=== PATIENT | female | born 1970 | race Caucasian/White ===

== ENCOUNTER 2022-08-27 05:04 | Emergency (ER) | payer OTHER, SELFPAY ==
[2022-08-27] VITALS (7 sets, daily range): BP systolic 190–205; BP diastolic 95–118; PULSE 68–89; RESP 16–20; TEMP 36.6–36.8; O2SAT 98–99; BMI 35.4
--- NOTE | 2022-08-27 05:39 | PC.NURSE ---
Pt aox4 at the bedside. Breaths are even regular and unlabored. BP 190/95 with HR 75. Abd soft and non tender. Reports left side tooth pain, 10/10, that radiates to the left ear and left eye. Pt reports feeling nauseas due to the pain. Tylenol and Motrin not helping with pain relief anymore. Pending phys eval.
--- NOTE | 2022-08-27 07:08 | ED.DENTAL ---
HPI - Dental/Oral General Chief complaint: Dental/Oral Stated complaint: Dental pain Time Seen by Provider: 08/27/22 07:06 Source: patient Mode of arrival: ambulatory Limitations: no limitations History of Present Illness HPI Narrative: Patient with chronic dental caries the skin from fluid unable to find a dentist complaining of shooting pain in left premolar both upper and lower. No fever no gum swelling no erythema no fever or chills patient does have history of hypertension takes lisinopril 40 mg and atenolol which she took last night usually blood pressure is controlled no headache Related Data Previous Rx's Medication Instructions Recorded amoxicillin 875 mg-potassium 1 tab PO BID #20 tabs 08/27/22 clavulanate 125 mg tablet oxycodone 5 mg tablet 5 mg PO Q6H PRN pain #20 tabs 08/27/22 Allergies Allergy/AdvReac Type Severity Reaction Status Date / Time No Known Allergies Allergy Verified 08/27/22 05:11 Review of Systems Review of Systems: Yes all other systems are reviewed and are negative PMFSH Social History Social History Advance Directives: No Advance Directives Information Provided: Yes Physical Exam Vital Signs: Vital Signs: Last Vital Signs Temp 98.3 F 08/27/22 05:37 Pulse 70 08/27/22 07:29 Resp 17 08/27/22 07:16 BP 190/96 H 08/27/22 07:29 Pulse Ox 98 08/27/22 07:29 O2 Del Method Room Air 08/27/22 07:29 BMI result Body Mass Index 35.4 Const: General: healthy appearing, well developed and acute distress moderate HEENT: Teeth image: 1. Multiple loss of T8 with deep cavity and premolar no gum swelling 2. Cavity in pre morar with local tenderness no gum swelling Throat: Yes posterior oropharynx normal Resp: Effort & Inspection: normal respiratory effort Auscultation: clear to auscultation bilaterally Cardio: Palpation: normal PMI Rate: regular rate Rhythm: regular rhythm Medications Administered Discontinued Medications Generic Name Dose Route Start Last Admin Trade Name Freq PRN Reason Stop Dose Admin Amoxicillin/Clavulanate Potassium 875 mg 08/27/22 07:26 08/27/22 07:33 Amoxicillin/Potassium Clav 875 Mg Tablet PO 08/27/22 07:27 875 mg ONCE ONE Administration Oxycodone HCl 10 mg 08/27/22 07:26 08/27/22 07:33 Oxycodone Hcl Immed Release 5 Mg Tablet PO 08/27/22 07:27 10 mg ONCE ONE Administration Discharge Plan Discharge Clinical Impression: Dental caries Patient Disposition: Home, Self-Care Instructions: Toothache (ED) Additional Instructions: Take pain medication and antibiotic as prescribed and follow with dentist You had high blood pressure likely from the pain continue taking blood pressure medication and if it is elevated higher than 135/85 follow-up with PCP Prescriptions: New amoxicillin-pot clavulanate 875-125 mg tablet 1 tab PO BID Qty: 20 0RF oxycodone 5 mg tablet 5 mg PO Q6H PRN (Reason: pain) Qty: 20 0RF Rx Instructions: Partial Fill upon patient request.
[2022-08-27] MEDS: oxyCODONE HCl Immed Release 5 MG TABLET 10 MG PO (07:33)
[2022-08-27] MEDS: Amoxicillin/Potassium Clav 875 MG TABLET PO (07:33)
== END 2022-08-27 08:18 | disposition home or self-care (01) ==
PROVIDERS: Emergency Provider Internal Medicine
DX: K02.9 Dental caries, unspecified (principal)
CPT/HCPCS: 99283; 99284

== ENCOUNTER 2022-10-31 15:20 | Emergency (ER) | payer OTHER, SELFPAY ==
[2022-10-31 15:28] VITALS: BP 211/106; PULSE 18; RESP 100; TEMP 36.7; O2SAT 98; BMI 34.7
--- NOTE | 2022-10-31 15:31 | ED_ITS ---
HPI - General Adult General Chief complaint: General Medical Stated complaint: High blood pressure Time Seen by Provider: 10/31/22 19:27 Source: patient Mode of arrival: ambulatory Limitations: no limitations History of Present Illness HPI narrative: Patient's will chronic anxiety on Xanax 3 times a day for several years patient got her medicines filled on 10/05 now she cannot find her medication for last few days likely she took extra pills or lost checked her blood pressure was 250/110 feels very panicky was given 1 mg of Xanax in the triage area and patient feeling much better on arrival blood pressure has improved to 146/59. Patient will be getting her medication next week asking for medication till that time Related Data Previous Rx's Medication Instructions Recorded amoxicillin 875 mg-potassium 1 tab PO BID #20 tabs 08/27/22 clavulanate 125 mg tablet oxycodone 5 mg tablet 5 mg PO Q6H PRN pain #20 tabs 08/27/22 alprazolam 1 mg tablet (Xanax) 1 mg PO TID PRN anxiety #7 tabs 10/31/22 fluoxetine 20 mg capsule (Prozac) 20 mg PO DAILY #30 caps 10/31/22 Allergies Allergy/AdvReac Type Severity Reaction Status Date / Time No Known Allergies Allergy Verified 08/27/22 05:11 Review of Systems Review of Systems: Yes all other systems are reviewed and are negative [facility] Social History Social History Alcohol intake: never Advance Directives: No Advance Directives Information Provided: Yes Physical Exam ED Vital Signs: Vital Signs - 24 hr 10/31/22 15:28 10/31/22 18:43 10/31/22 19:08 Temperature 98.1 F 97.7 F Pulse Rate 18 L 80 Respiratory Rate 100 H 19 Blood Pressure 211/106 H 158/74 H 147/69 H Pulse Oximetry 98 98 Oxygen Delivery Method Room Air Room Air 10/31/22 20:08 Temperature Pulse Rate 72 Respiratory Rate Blood Pressure 146/59 H Pulse Oximetry Oxygen Delivery Method BMI result Body Mass Index 34.7 Appearance: Alert. Oriented X3. No acute distress anxious. Eyes: PERRLA, No Nystagmus ENT: Pharynx normal. Oral Mucosa moist Neck: Normal inspection. Neck supple. CVS: Normal heart rate and rhythm. Pulses normal. Respiratory: No respiratory distress. Equal air entry bilateral, no wheezing/rales/rhonchi Abdomen: Soft and nontender. Bowel sounds are present, no mass palpable, no CVA tenderness Skin: Skin warm and dry. Normal skin color. Normal skin turgor. Extremities: No lower extremity edema. No calf tenderness Neuro: Oriented X 3. No motor deficit. No sensory deficit.No cerebellar signs , cranial nerves II-XII intact Course Course Course Narrative: RME: 52 yold female with pmh of anxiety and HTN presents to the ED for panic attacks and high blood pressure. patient has been without xanax 1mg tid for 3 days due to losing the her xanax bottle. no neuro decitis. patient stating having withradawl before from not taking ativan in the past. NO neuro deficit. Charge nurse made aware of patient's case. labs and EKG ordered. symptoms most liekly from anxiety and withdrawal from not taking xanax ( benzos) for the past 3 days. Medications Administered Discontinued Medications Generic Name Dose Route Start Last Admin Trade Name Katya PRN Reason Stop Dose Admin Alprazolam 1 mg 10/31/22 15:31 10/31/22 15:34 Alprazolam 0.5 Mg Tablet PO 10/31/22 15:32 1 mg ONCE ONE Administration Medical Decision Making Medical Decision Making [facility] Narrative: Patient with panic attacks not find a medication likely she took extra pills initially had high blood pressure with panic attack now feeling much better will discharge patient home on Prozac and will give few tablets of Xanax until she sees the primary doctor Lab Data [facility] Lab Attestation statement: I reviewed the patient's lab results. 10/31/22 15:57 10/31/22 15:57 Labs: Lab Results 10/31/22 10/31/22 10/31/22 Range/Units 15:57 15:57 15:57 WBC 10.2 (4.8-10.8) X10*3/uL RBC 4.87 (4.20-5.50) X10*6/uL Hgb 13.3 (12.0-16.0) g/dl Hct 41.7 (37.0-47.0) % MCV 85.6 (80.0-98.0) fL MCH 27.3 (27.0-33.0) pg MCHC 31.9 (31.0-35.0) g/dl RDW 13.3 (11.0-16.0) % Plt Count 337 (160-400) X10*3/uL MPV 9.5 (9.4-12.3) fL Immature Gran % (Auto) 0.4 (0.0-0.4) % Neut % (Auto) 82.4 H (45-73) % Lymph % (Auto) 11.8 L (20-40) % Piute % (Auto) 4.8 (2-11) % Eos % (Auto) 0.3 (0-4) % Baso % (Auto) 0.3 (0-2) % Lymph # (Auto) 1.2 (1.2-4.9) X10*3/uL Piute # (Auto) 0.5 (0.1-1.2) X10*3/uL Eos # (Auto) 0.0 (0.0-0.4) X10*3/uL Baso # (Auto) 0.0 (0.0-0.2) X10*3/uL Abs Immat Gran (auto) 0.04 H (0.00-0.03) X10*3/uL Absolute Neuts (auto) 8.4 H (2.0-8.3) x10*3/uL Absolute Nucleated RBC 0.000 (0.0-0.012) X10*3/uL Nucleated RBC % (auto) 0.0 (0.0-0.2) /100WBC PT (10.0-13.1) SEC INR (0.9-1.1) APTT (26.0-36.4) SEC Sodium 139 (135-145) mmol/L Potassium 3.9 (3.3-5.1) mmol/L Chloride 103 (96-108) mmol/L Carbon Dioxide 22 (22-29) mmol/L Anion Gap 18 (12-20) BUN 8 L (9-16) mg/dL Creatinine 0.77 (0.5-1.4) mg/dL Estim Creat Clear Calc 113.6 Estimated GFR > 60 Random Glucose 160 H (60-115) mg/dL Calcium 9.7 (8.4-10.2) mg/dL Total Bilirubin 0.9 (0.0-1.0) mg/dL AST 34 H (5-31) U/L ALT 34 H (0-31) U/L Alkaline Phosphatase 70 (39-117) U/L Troponin I High Sens < 2.7 (<3.5-17.0) ng/L Total Protein 8.3 H (6.5-8.0) g/dL Albumin 4.2 (3.5-5.0) g/dL 10/31/22 Range/Units 15:57 WBC (4.8-10.8) X10*3/uL RBC (4.20-5.50) X10*6/uL Hgb (12.0-16.0) g/dl Hct (37.0-47.0) % MCV (80.0-98.0) fL MCH (27.0-33.0) pg MCHC (31.0-35.0) g/dl RDW (11.0-16.0) % Plt Count (160-400) X10*3/uL MPV (9.4-12.3) fL Immature Gran % (Auto) (0.0-0.4) % Neut % (Auto) (45-73) % Lymph % (Auto) (20-40) % Piute % (Auto) (2-11) % Eos % (Auto) (0-4) % Baso % (Auto) (0-2) % Lymph # (Auto) (1.2-4.9) X10*3/uL Piute # (Auto) (0.1-1.2) X10*3/uL Eos # (Auto) (0.0-0.4) X10*3/uL Baso # (Auto) (0.0-0.2) X10*3/uL Abs Immat Gran (auto) (0.00-0.03) X10*3/uL Absolute Neuts (auto) (2.0-8.3) x10*3/uL Absolute Nucleated RBC (0.0-0.012) X10*3/uL Nucleated RBC % (auto) (0.0-0.2) /100WBC PT 12.8 (10.0-13.1) SEC INR 1.1 (0.9-1.1) APTT 30.0 (26.0-36.4) SEC Sodium (135-145) mmol/L Potassium (3.3-5.1) mmol/L Chloride (96-108) mmol/L Carbon Dioxide (22-29) mmol/L Anion Gap (12-20) BUN (9-16) mg/dL Creatinine (0.5-1.4) mg/dL Estim Creat Clear Calc Estimated GFR Random Glucose (60-115) mg/dL Calcium (8.4-10.2) mg/dL Total Bilirubin (0.0-1.0) mg/dL AST (5-31) U/L ALT (0-31) U/L Alkaline Phosphatase (39-117) U/L Troponin I High Sens (<3.5-17.0) ng/L Total Protein (6.5-8.0) g/dL Albumin (3.5-5.0) g/dL Discharge Plan Discharge Clinical Impression: Panic attack Patient Disposition: Home, Self-Care Instructions: Panic Disorder (ED), Anxiety (ED) Additional Instructions: Continue medication for anxiety You may have to taper it down start taking Prozac daily and see psychiatrist Prescriptions: New fluoxetine [Prozac] 20 mg capsule 20 mg PO DAILY Qty: 30 0RF alprazolam [Xanax] 1 mg tablet 1 mg PO TID PRN (Reason: anxiety) Qty: 7 0RF No Action amoxicillin-pot clavulanate 875-125 mg tablet 1 tab PO BID Qty: 20 0RF oxycodone 5 mg tablet 5 mg PO Q6H PRN (Reason: pain) Qty: 20 0RF Rx Instructions: Partial Fill upon patient request. Referrals: Marcin Raymundo MD [Physician] - 2 weeks Interventions: ED Discharge Assessment Last Done: 10/31/22 20:21 Discharge Date/Time: 10/31/22 20:22
--- NOTE | 2022-10-31 15:32 | ECG_ITS ---
Test Reason : blood pressure Blood Pressure : / mmHG Vent. Rate : 069 BPM Atrial Rate : 069 BPM P-R Int : 128 ms QRS Dur : 102 ms QT Int : 422 ms P-R-T Axes : 045 -11 072 degrees QTc Int : 452 ms Sinus rhythm with Premature atrial complexes Left ventricular hypertrophy with repolarization abnormality ( R in aVL , Andi product ) Abnormal ECG No previous ECGs available Referred By: Allen Motta Electronically Signed By:Ronni Jackson
[2022-10-31] MEDS: ALPRAZolam 0.5 MG TABLET 1 MG PO (15:34)
[2022-10-31 16:08] LABS: MANUAL DIFF FLAG NO
[2022-10-31 16:16] LABS: Basophils Percent Auto 0.3 % (0-2); Eosinophils Percent Auto 0.3 % (0-4); Hematocrit 41.7 % (37.0-47.0); Hemoglobin 13.3 g/dl (12.0-16.0); Imm Gran Abs Auto 0.04 X10*3/uL (0.00-0.03); Imm Gran Pct Auto 0.4 % (0.0-0.4); Lymphocytes Absolute Auto 1.2 X10*3/uL (1.2-4.9); Lymphocytes Percent Auto 11.8 % (20-40); Mean Corpuscular HGB Conc 31.9 g/dl (31.0-35.0); Mean Corpuscular Hemoglobin 27.3 pg (27.0-33.0); Mean Corpuscular Volume 85.6 fL (80.0-98.0); Mean Platelet Volume 9.5 fL (9.4-12.3); Monocytes Absolute Auto 0.5 X10*3/uL (0.1-1.2); Monocytes Percent Auto 4.8 % (2-11); Neutrophils Absolute Auto 8.4 x10*3/uL (2.0-8.3); Neutrophils Percent Auto 82.4 % (45-73); Platelet Count 337 X10*3/uL (160-400); Red Blood Count 4.87 X10*6/uL (4.20-5.50); Red Cell Distribution Width 13.3 % (11.0-16.0); White Blood Count 10.2 X10*3/uL (4.8-10.8)
[2022-10-31 16:17] LABS: INTERNATIONAL NORM RATIO 1.1 (0.9-1.1); Prothrombin Time 12.8 SEC (10.0-13.1)
[2022-10-31 16:30] LABS: Alanine Aminotransferase 34 U/L (0-31); Albumin Level 4.2 g/dL (3.5-5.0); Alkaline Phosphatase 70 U/L (39-117); Anion Gap 18 (12-20); Aspartate Amino Transferase 34 U/L (5-31); Bilirubin Total 0.9 mg/dL (0.0-1.0); Blood Urea Nitrogen 8 mg/dL (9-16); Calcium 9.7 mg/dL (8.4-10.2); Carbon Dioxide 22 mmol/L (22-29); Chloride 103 mmol/L (96-108); Creatinine Clr Calc Pharmacy 113.6; Estimated Glomerular Filt Rate > 60; Glucose Random 160 mg/dL (60-115); Potassium 3.9 mmol/L (3.3-5.1); Sodium 139 mmol/L (135-145); Total Protein 8.3 g/dL (6.5-8.0)
[2022-10-31 16:39] LABS: Troponin-I High Sensitivity < 2.7 ng/L (<3.5-17.0)
[2022-10-31 18:43] VITALS: BP 158/74
[2022-10-31 19:08] VITALS: BP 147/69; PULSE 80; RESP 19; TEMP 36.5; O2SAT 98
--- NOTE | 2022-10-31 19:42 | PC.NURSE ---
this rn assumed care of pt @ 1900. pt placed on vehicle monitor technician. vs updated. pt changed into hospital gown awaiting to be seen by ed provider
[2022-10-31 20:08] VITALS: BP 146/59; PULSE 72
--- NOTE | 2022-10-31 20:20 | PC.NURSE ---
pt son at bedside. pt calm and cooperative. vss. pt ambulatory at discharge. pt denies pain. pt provided with discharge packet. pt verbalized understanding of discharge plan
== END 2022-10-31 20:22 | disposition home or self-care (01) ==
PROVIDERS: Physician Assistant; Emergency Provider Internal Medicine
DX: F41.0 Panic disorder [episodic paroxysmal anxiety] (principal); R94.31 Abnormal electrocardiogram [ECG] [EKG]; Z79.899 Other long term (current) drug therapy
CPT/HCPCS: 36415; 80053; 84484; 85025; 85610; 85730; 93005; 99283; 99284

== ENCOUNTER 2022-11-01 06:37 | Emergency (ER) | payer OTHER, SELFPAY ==
[2022-11-01 06:42] VITALS: BP 176/82; PULSE 83; RESP 16; TEMP 36.8; O2SAT 98; BMI 34.7
[2022-11-01 07:10] VITALS: BP 163/92; PULSE 65; RESP 16; TEMP 36.6; O2SAT 97
[2022-11-01] MEDS: ALPRAZolam 0.5 MG TABLET 1 MG PO (07:52)
--- NOTE | 2023-03-07 18:47 | ED_ITS ---
HPI - General Adult General Chief complaint: General Medical Stated complaint: HBP Time Seen by Provider: 11/01/22 07:04 Source: patient Limitations: no limitations History of Present Illness HPI narrative: PAtient presents with anxiety and HTN Seen yesterday and discharged. Unable to fill Rx by PCP Symptoms severe 7/10 Worsened by not having her meds Related Data Previous Rx's Medication Instructions Recorded amoxicillin 875 mg-potassium 1 tab PO BID #20 tabs 08/27/22 clavulanate 125 mg tablet oxycodone 5 mg tablet 5 mg PO Q6H PRN pain #20 tabs 08/27/22 alprazolam 1 mg tablet (Xanax) 1 mg PO TID PRN anxiety #7 tabs 10/31/22 fluoxetine 20 mg capsule (Prozac) 20 mg PO DAILY #30 caps 10/31/22 ondansetron 4 mg disintegrating 4 mg PO Q8H 3 days #9 tabs 12/23/22 tablet Allergies Allergy/AdvReac Type Severity Reaction Status Date / Time No Known Allergies Allergy Verified 08/27/22 05:11 [facility] Social History Social History Alcohol intake: current Alcohol intake frequency: holidays/special occasions only Smoked in Last 30 Days: No Use of substances other than those prescribed or required for medical reasons: No Advance Directives: No Advance Directives Information Provided: No Patient : No Physical Exam ED Vital Signs: BMI result Body Mass Index 34.7 GEN: Well developed, no acute distress, alert, oriented HEENT: Normocephalic, atraumatic, normal external ears, nose appears normal Eyes: Normal to appearance Neck: Supple, no lymphadenopathy Respiratory: Talks in complete sentences, no respiratory distress Extremities: No clubbing cyanosis or edema Neurologic: No focal neurologic deficits, cranial nerves 2-12 intact, gait normal Skin: No rash Course Course Course Narrative: I reviewed her laboratory results. There is some mild are abnormalities including elevated blood sugar. This can be seen with acute stress reactions such as stress and anxiety. Additionally this can also be seen in diabetes and prediabetes. I am recommending routine follow-up in about 1 month for repeat blood testing. At that time, your provider could order and hemoglobin A1c. Additionally, your liver function tests/enzymes are very slightly elevated. Again this can be rechecked by routine laboratory analysis in approximately 1 month. Discussed above with patient Medications Administered Discontinued Medications Generic Name Dose Route Start Last Admin Trade Name Freq PRN Reason Stop Dose Admin Alprazolam 1 mg 11/01/22 07:44 11/01/22 07:52 Alprazolam 0.5 Mg Tablet PO 11/01/22 07:45 1 mg ONCE ONE Administration Medical Decision Making Differential Diagnosis Differential Diagnoses: The differential diagnosis associated with the presentation includes (anxiety, hypokalemia, renal dysfunction, medication non compliance) Admission/Observation Consideration of admission/observation: Escalation of care including admission/observation considered Lab Data MDM Lab Attestation statement: I reviewed the patient's lab results. External Record Review External record reviewed: Inpatient record, Office record, Outpatient record and Prior outpatient labs Prescription Management I considered prescription management with: Other (anxiety meds) Chronic Conditions Patient?s care impacted by: Hypertension Discharge Plan Discharge Clinical Impression: Essential hypertension, Elevated blood sugar, Elevated LFTs Patient Disposition: Home, Self-Care Instructions: Chronic Hypertension (ED), DASH Eating Plan (ED), Nondiabetic Hyperglycemia (ED) Additional Instructions: I reviewed her laboratory results. There is some mild are abnormalities including elevated blood sugar. This can be seen with acute stress reactions such as stress and anxiety. Additionally this can also be seen in diabetes and prediabetes. I am recommending routine follow-up in about 1 month for repeat blood testing. At that time, your provider could order and hemoglobin A1c. Additionally, your liver function tests/enzymes are very slightly elevated. Again this can be rechecked by routine laboratory analysis in approximately 1 month. Prescriptions: No Action amoxicillin-pot clavulanate 875-125 mg tablet 1 tab PO BID Qty: 20 0RF oxycodone 5 mg tablet 5 mg PO Q6H PRN (Reason: pain) Qty: 20 0RF Rx Instructions: Partial Fill upon patient request. fluoxetine [Prozac] 20 mg capsule 20 mg PO DAILY Qty: 30 0RF alprazolam [Xanax] 1 mg tablet 1 mg PO TID PRN (Reason: anxiety) Qty: 7 0RF ondansetron 4 mg tablet,disintegrating 4 mg PO Q8H 3 Days Qty: 9 0RF Referrals: [facility] [place] [facility] [Provider Group] Interventions: ED Discharge Assessment Last Done: 11/01/22 08:59 Discharge Date/Time: 11/01/22 09:00
== END 2022-11-01 09:00 | disposition home or self-care (01) ==
PROVIDERS: Emergency Provider Emergency Medicine
DX: I10 Essential (primary) hypertension (principal); R73.9 Hyperglycemia, unspecified; R79.89 Other specified abnormal findings of blood chemistry
CPT/HCPCS: 99283

== ENCOUNTER 2022-12-23 05:33 | Emergency (ER) | payer OTHER, SELFPAY ==
--- NOTE | ~2022-12-23 | CT_ITS ---
EXAMINATION: CT ABDOMEN AND PELVIS WITH CONTRAST CLINICAL INFORMATION: Abdominal pain, possible obstruction COMPARISON: None available. TECHNIQUE: Multidetector volumetric images were obtained from the superior aspect of the liver through the pubic symphysis following administration 85 mL of Omnipaque 350 intravenous contrast. Sagittal and coronal reformatted images were obtained on the technologist's workstation. Oral contrast: No This CT examination was performed using dose optimization techniques as appropriate, variously including the following: *Automated exposure control *Adjustment of mA and/or kV according to patient size (this includes techniques or standardized protocols for targeted exams where dose is matched to indication/reason for exam; i.e. extremities or head) *Use of iterative reconstruction technique DLP: 1025.51 mGy-cm FINDINGS: LUNG BASES: The visualized lung bases are unremarkable. LIVER, GALLBLADDER, AND BILIARY TREE: The liver is normal in size, shape, and attenuation. No focal hepatic lesion or biliary ductal dilatation is present. The gallbladder is surgically absent. PANCREAS: Unremarkable. SPLEEN: Unremarkable. ADRENAL GLANDS: Unremarkable. KIDNEYS AND URETERS: There are several small low density left renal lesions, too small to characterize, but presumably cysts. No specific follow-up is needed. The kidneys are normal in size, shape, and attenuation. No hydronephrosis, hydroureter, or calculi seen. No perinephric stranding. BLADDER: Unremarkable. GASTROINTESTINAL TRACT: There is a sandra mesentery, with a few borderline sized nodes measuring up to 7 mm in short axis. The small and large bowel are unremarkable. The appendix is unremarkable. ABDOMINAL WALL: No significant hernia is appreciated. LYMPH NODES: Normal. VASCULAR: Unremarkable. PELVIC VISCERA: There is a dominant 4.3 cm follicle in the left ovary, with adjacent small amount of fluid in the cul-de-sac and adjacent to the left ovary, presumably physiologic. OSSEOUS STRUCTURES: Unremarkable. CT/CT abdomen pelvis w IV con IMPRESSION: 1. Mild sandra mesentery with associated small nodes, a nonspecific finding but most likely on the basis of mesenteric adenitis. 2. Dominant left adnexal 4.3 cm cyst with adjacent fluid is presumably follow physiologic. No follow-up imaging is recommended. 3. Small low density left renal lesions are presumably cysts, though too small to characterize. No specific imaging follow-up is recommended. Fleischner guidelines were followed.
[2022-12-23 05:57] LABS: Hematocrit 43.3 % (37.0-47.0); Hemoglobin 13.8 g/dl (12.0-16.0); Mean Corpuscular HGB Conc 31.9 g/dl (31.0-35.0); Mean Corpuscular Hemoglobin 27.2 pg (27.0-33.0); Mean Corpuscular Volume 85.2 fL (80.0-98.0); Mean Platelet Volume 8.8 fL (9.4-12.3); Platelet Count 270 X10*3/uL (160-400); Red Blood Count 5.08 X10*6/uL (4.20-5.50); Red Cell Distribution Width 14.1 % (11.0-16.0); White Blood Count 10.3 X10*3/uL (4.8-10.8)
[2022-12-23 05:59] VITALS: BP 146/72; PULSE 66; RESP 18; TEMP 36.2; O2SAT 100; BMI 35.6
[2022-12-23 06:03] VITALS: BP 151/91; PULSE 80; RESP 18; O2SAT 98
[2022-12-23 06:15] LABS: Alanine Aminotransferase 23 U/L (0-31); Alkaline Phosphatase 67 U/L (39-117); Anion Gap 18 (12-20); Aspartate Amino Transferase 21 U/L (5-31); Bilirubin Total 0.8 mg/dL (0.0-1.0); Blood Urea Nitrogen 14 mg/dL (9-16); Calcium 9.8 mg/dL (8.4-10.2); Carbon Dioxide 22 mmol/L (22-29); Chloride 100 mmol/L (96-108); Creatinine Clr Calc Pharmacy 124.9; Estimated Glomerular Filt Rate > 60; Glucose Random 115 mg/dL (60-115); Lipase 17 U/L (8-78); Sodium 136 mmol/L (135-145)
[2022-12-23] MEDS: ondansetron HCL 4 MG/2 ML VIAL IVPUSH (06:26)
[2022-12-23] MEDS: Ketorolac Tromethamine 30 MG/ML VIAL IVPUSH (06:26)
[2022-12-23] MEDS: 0.9 % Sodium Chloride 1,000 ML 999 ML IV (06:26)
[2022-12-23 06:27] LABS: Appearance Urine Clear; Color Urine Yellow; Glucose Urine UA Negative (Negative); Leukocyte Esterase Urine Negative (Negative); Nitrite Urine Negative (Negative); PH 5.5 (5.0-9.0); Specific Gravity - Urine <= 1.005 (1.005-1.025); Urine Blood Negative (Negative); Urine Ketones Negative (Negative); Urine Protein Negative (Neg-Trace)
--- NOTE | 2022-12-23 06:37 | ED_ITS ---
HPI - General Adult General Chief complaint: Abdominal Pain Stated complaint: abd pain x4 days Time Seen by Provider: 12/23/22 06:30 Source: patient Mode of arrival: ambulatory Limitations: no limitations History of Present Illness HPI narrative: Patient is a 52 year old assigned female at with a history of HTN presenting to the emergency department today with abdominal pain. Patient states that over the last 4 days she has had abdominal pain, diarrhea, and nausea but no vomiting. Patient states that her last normal bowel movement was 5 days ago. Patient denies any dizziness, lightheadedness, vomiting, fever, chills, blurry vision, double vision, loss of vision, chest pain, difficulty breathing, shortne ss of breath, back pain, night sweats, pain with urination, increased urinary frequency, increased urinary urgency, blood in her urine or stool, syncope or a near syncopal episode, recent trauma or falls, bowel incontinence, bladder incontinence, bladder retention, or any other complaints at this time. Onset (ago): day(s) (4) Location: abdomen Radiation: non-radiation Severity: mild Severity scale (1-10): 4 Quality: aching and dull Pain Consistency: constant Relieving factors: none Exacerbating factors: none Associated symptoms: nausea/vomiting Treatments prior to arrival: none Related Data Previous Rx's Medication Instructions Recorded amoxicillin 875 mg-potassium 1 tab PO BID #20 tabs 08/27/22 clavulanate 125 mg tablet oxycodone 5 mg tablet 5 mg PO Q6H PRN pain #20 tabs 08/27/22 alprazolam 1 mg tablet (Xanax) 1 mg PO TID PRN anxiety #7 tabs 10/31/22 fluoxetine 20 mg capsule (Prozac) 20 mg PO DAILY #30 caps 10/31/22 ondansetron 4 mg disintegrating 4 mg PO Q8H 3 days #9 tabs 12/23/22 tablet Allergies Allergy/AdvReac Type Severity Reaction Status Date / Time No Known Allergies Allergy Verified 08/27/22 05:11 Review of Systems Constitutional: Constitutional: Reports no additional constitutional complain ts, Denies chills, Denies fever(s) and Denies night sweats Eyes: Eyes: Reports no additional eye complaints, Denies blurry vision, Denies change in vision, Denies diplopia, Denies eye discharge, Denies loss of vision and Denies eye pain ENT: Denies dizziness Cardiovascular: Cardiovascular: Reports no additional cardiovascular complaints, Denies chest pain, Denies lightheadedness, Denies Loss of Consciousness and Denies dyspnea Respiratory: Respiratory: Reports no additional respiratory complaints and De nies dyspnea Gastrointestinal: Gastrointestinal: Reports no additional gastrointestinal complaints, Reports abdominal pain, Denies melena, Denies hematochezia, Denies change in bowel habits, Denies change in stool character, Reports diarrhea, Rep orts nausea and Denies vomiting Genitourinary: Genitourinary: Denies hematuria, Denies urinary frequency, Denies dysuria, Denies urinary incontinence, Denies urinary hesitancy and Denies urinary urgency Musculoskeletal: Musculoskeletal: Reports no additional musculoskeletal complaints, Denies numbness and Denies tingling Neurologic: Denies dizziness, Denies loss of vision, Denies numbness and Denies tingling Psychiatric: Psychiatric: Reports no additional psychiatric complaints Endocrine: Endocrine: Reports no additional endocrine complaints Hematologic/Lymphatic: Hematologic/Lymphatic: Reports no additional hematologic/lymphatic complaints Allergic/Immunologic: Allergic/Immunologic: Reports no additional allergic/immunologic complaints [facility] Past Medical History Attestation statement: The following information was validated with the patient. Source: old records reviewed and nursing notes reviewed Social History Social History Alcohol intake: current Alcohol intake frequency: holidays/special occasions only Smoked in Last 30 Days: No Use of substances other than those prescribed or required for medical reasons: No Advance Directives: No Advance Directives Information Provided: No Patient : No Physical Exam ED Vital Signs: Vital Signs - 24 hr 12/23/22 05:59 12/23/22 06:03 12/23/22 07:41 Temperature 97.2 F Pulse Rate 66 80 64 Respiratory Rate 18 18 18 Blood Pressure 146/72 H 151/91 H 144/83 H Pulse Oximetry 100 98 99 Oxygen Delivery Method Room Air Room Air 12/23/22 08:00 12/23/22 09:39 Temperature 98.0 F 98.2 F Pulse Rate 101 H 74 Respiratory Rate 18 18 Blood Pressure 121/51 L 134/89 Pulse Oximetry 95 99 Oxygen Delivery Method Room Air Room Air BMI result Body Mass Index 35.6 Const General: cooperative, no acute distress, alert and awake Nutritional Appearance: well nourished Orientation/consciousness: patient oriented x3 Limitations: no limitations HENMT Head: Yes normal to inspection and Yes atraumatic Ears: hearing grossly normal bilaterally and external ears normal General nose exam: Normal external nose present, no nasal discharge noted and no epistaxis Face and sinus: Yes normal facial exam, No abrasion and No laceration Mouth: Normal oral and palatal mucosa present, no drooling and no muffled voice Eyes General: appearance normal, both eyes and all related structures Periorbital: periorbital findings normal Eyelids: Yes eyelids normal Conjunctivae: conjunctivae normal Pupils: Equal, round and reactive pupils present EOM: EOMs intact bilaterally Neck Neck: Yes normal visual inspection, Yes full ROM and Yes no lymphadenopathy Chest Chest palpation & inspection: normal inspection of the chest Resp Effort & Inspection: normal respiratory effort and able to speak in complete sentences Auscultation: clear to auscultation bilaterally Cardio Rate: regular rate Rhythm: regular rhythm GI Inspection: Yes normal to inspection Palpation (GI): Soft to palpation, not firm, Tenderness to palpation present (GI) (diffuse) and no guarding Neuro General: patient oriented x3 and moves all extremities Cranial nerves: Yes Equal, round and reactive pupils present Cognition (Neuro): normal cognition Motor exam (neuro): 5/5 motor strength present throughout Sensory Exam: Normal double simultaneous stimulation for sensation Coordination: [id number] test normal Extrem General: Yes normal to inspection, Yes full ROM and Yes capillary refill normal Psych Appearance: grossly normal Mental Status: mental status grossly normal Affect: normal affect Attitude: cooperative Thought process: Normal thought process present Thought content: Normal thought content present Insight: Good insight present (Psych) Medications Administered Discontinued Medications Generic Name Dose Route Start Last Admin Trade Name Katya PRN Reason Stop Dose Admin Alprazolam 1 mg 12/23/22 07:46 12/23/22 07:49 Alprazolam 0.5 Mg Tablet PO 12/23/22 07:47 1 mg ONCE ONE Administration Sodium Chloride 1,000 mls @ 999 mls/hr 12/23/22 06:30 12/23/22 07:27 Ns IV 12/23/22 07:30 Infused .Q1H1M IFTIKHAR Infusion Iohexol 85 ml 12/23/22 09:44 12/23/22 09:46 Iohexol 350 Mg/Ml 100 Ml Infus..Btl IV 12/23/22 09:45 85 ml ONCE ONE Administration Ketorolac Tromethamine 30 mg 12/23/22 06:22 12/23/22 06:26 Ketorolac Tromethamine 30 Mg/Ml Vial IVPUSH 12/23/22 06:23 30 mg ONCE ONE Administration Ondansetron HCl 4 mg 12/23/22 06:22 12/23/22 06:26 Ondansetron Hcl 4 Mg/2 Ml Vial IVPUSH 12/23/22 06:23 4 mg ONCE ONE Administration Medical Decision Making Medical Decision Making [facility] Narrative: Patient is a 52 year old assigned female at with a history of HTN presenting to the emergency department today with abdominal pain. Patient's physical exam was as noted in the physical exam portion of this chart. Patient's blood work was unremarkable. Patient's urine showed no acute process. Patient's abdomen/pelvis CT showed mesenteric adenitis. I explained my physical exam findings as well as all test results to the patient. I answered all questions asked by the patient. Patient received IV Toradol, Zofran, and fluids which she stated helped her symptoms significantly. I stressed the importance of the patient taking her medication as prescribed. I stressed the importance of the patient following up with her primary care provider. I stressed the importance of the patient returning to the emergency department immediately if her symptoms were to worsen or if she were to develop any dizziness, shortness of breath, difficulty breathing, chest pain, blurry vision, loss of vision, nausea, vomiting, abdominal pain, fever, chills, back pain, or any other complaints. Patient verbalized agreement and understanding with this treatment plan and discharge. Differential Diagnosis Differential Diagnoses: The differential diagnosis associated with the presentation includes Abdominal pain Nausea Vomiting Mesenteric adenitis Diverticulitis Admission/Observation Consideration of admission/observation: Escalation of care including admission/observation considered Patient would have been admitted to the hospital had her work up had any findings where hospital admission was appropriate and her clinical presentation warranted hospital admission. Lab Data [facility] Lab Attestation statement: I reviewed the patient's lab results. My interpretation of these studies and their corresponding values is that they are grossly normal. 12/23/22 05:52 12/23/22 05:52 Labs: Lab Results 12/23/22 12/23/22 12/23/22 Range/Units 05:52 05:52 06:18 WBC 10.3 (4.8-10.8) X10*3/uL RBC 5.08 (4.20-5.50) X10*6/uL Hgb 13.8 (12.0-16.0) g/dl Hct 43.3 (37.0-47.0) % MCV 85.2 (80.0-98.0) fL MCH 27.2 (27.0-33.0) pg MCHC 31.9 (31.0-35.0) g/dl RDW 14.1 (11.0-16.0) % Plt Count 270 (160-400) X10*3/uL MPV 8.8 L (9.4-12.3) fL Absolute Nucleated RBC 0.000 (0.0-0.012) X10*3/uL Nucleated RBC % (auto) 0.0 (0.0-0.2) /100WBC Sodium 136 (135-145) mmol/L Potassium 4.0 (3.3-5.1) mmol/L Chloride 100 (96-108) mmol/L Carbon Dioxide 22 (22-29) mmol/L Anion Gap 18 (12-20) BUN 14 (9-16) mg/dL Creatinine 0.71 (0.5-1.4) mg/dL Estim Creat Clear Calc 124.9 Estimated GFR > 60 Random Glucose 115 (60-115) mg/dL Calcium 9.8 (8.4-10.2) mg/dL Total Bilirubin 0.8 (0.0-1.0) mg/dL AST 21 (5-31) U/L ALT 23 (0-31) U/L Alkaline Phosphatase 67 (39-117) U/L Total Protein 8.0 (6.5-8.0) g/dL Albumin 4.0 (3.5-5.0) g/dL Lipase 17 (8-78) U/L Urine Color Yellow Urine Appearance Clear Urine pH 5.5 (5.0-9.0) Ur Specific [place] <= 1.005 (1.005-1.025) Urine Protein Negative (Neg-Trace) mg/dL Urine Glucose (UA) Negative (Negative) mg/dL Urine Ketones Negative (Negative) mg/dL Urine Blood Negative (Negative) Urine Nitrite Negative (Negative) Ur Leukocyte Esterase Negative (Negative) Independent Interpretation I performed an independent interpretation of an: CT Scan Interpretation: My interpretation is in agreement with the radiologist's impression of this imaging study. -- EXAMINATION: CT ABDOMEN AND PELVIS WITH CONTRAST? CLINICAL INFORMATION: Abdominal pain, possible obstruction? COMPARISON: None available. TECHNIQUE: Multidetector volumetric images were obtained from the superior aspect of the liver through the pubic symphysis following administration 85 mL of Omnipaque 350 intravenous contrast. Sagittal and coronal reformatted images were obtained on the technologist's workstation.? Oral contrast: No This CT examination was performed using dose optimization techniques as appropriate, variously including the following: *Automated exposure control *Adjustment of mA and/or kV according to patient size (this includes techniques or standardized protocols for targeted exams where dose is matched to indication/reason for exam; i.e. extremities or head) *Use of iterative reconstruction technique DLP: 1025.51 mGy-cm FINDINGS: LUNG BASES: The visualized lung bases are unremarkable.? LIVER, GALLBLADDER, AND BILIARY TREE: The liver is normal in size, shape, and attenuation. No focal hepatic lesion or biliary ductal dilatation is present. The gallbladder is surgically absent.? PANCREAS: Unremarkable.? SPLEEN: Unremarkable.? ADRENAL GLANDS: Unremarkable.? KIDNEYS AND URETERS: There are several small low density left renal lesions, too small to characterize, but presumably cysts. No specific follow-up is needed. The kidneys are normal in size, shape, and attenuation. No hydronephrosis, hydroureter, or calculi seen. No perinephric stranding. ? BLADDER: Unremarkable.? GASTROINTESTINAL TRACT: There is a sandra mesentery, with a few borderline sized nodes measuring up to 7 mm in short axis. The small and large bowel are unremarkable. The appendix is unremarkable.? ABDOMINAL WALL: No significant hernia is appreciated.? LYMPH NODES: Normal. VASCULAR: Unremarkable. PELVIC VISCERA: There is a dominant 4.3 cm follicle in the left ovary, with adjacent small amount of fluid in the cul-de-sac and adjacent to the left ovary, presumably physiologic. OSSEOUS STRUCTURES: Unremarkable.? CT/CT abdomen pelvis w IV con IMPRESSION: ? 1. Mild sandra mesentery with associated small nodes, a nonspecific finding but most likely on the basis of mesenteric adenitis. 2. Dominant left adnexal 4.3 cm cyst with adjacent fluid is presumably follow physiologic. No follow-up imaging is recommended. 3. Small low density left renal lesions are presumably cysts, though too small to characterize. No specific imaging follow-up is recommended. ? Fleischner guidelines were followed. Dictated By: Jun Irving MD Signed By: Electronically signed by Jun Irving MD 12/23/22 1008 Radiology Impression Discussion of test interpretation with radiology: I have reviewed the radiologist's reading. Prescription Management I considered prescription management with: Other (patient prescribed an anti- emetic) Chronic Conditions Patient?s care impacted by: Hypertension Discharge Plan Discharge Clinical Impression: Mesenteric adenitis Patient Disposition: Home, Self-Care Instructions: Adenitis (ED) Additional Instructions: Follow up with your primary care provider. Return to the emergency department immediately if your symptoms worsen or if you develop any dizziness, shortness of breath, difficulty breathing, chest pain, blurry vision, loss of vision, nausea, vomiting, abdominal pain, fever, chills, back pain, or any other complaints. Prescriptions: New ondansetron 4 mg tablet,disintegrating 4 mg PO Q8H 3 Days Qty: 9 0RF No Action amoxicillin-pot clavulanate 875-125 mg tablet 1 tab PO BID Qty: 20 0RF oxycodone 5 mg tablet 5 mg PO Q6H PRN (Reason: pain) Qty: 20 0RF Rx Instructions: Partial Fill upon patient request. fluoxetine [Prozac] 20 mg capsule 20 mg PO DAILY Qty: 30 0RF alprazolam [Xanax] 1 mg tablet 1 mg PO TID PRN (Reason: anxiety) Qty: 7 0RF [place] [facility] [place]] (Call to establish and follow up with a primary care provider. If you already have a primary care provider, please follow up with them.) [facility] [Provider Group] (Call to establish and follow up with a primary care provider. If you already have a primary care provider, please follow up with them.) [facility] [Provider Group] (Call to establish and follow up with a primary care provider. If you already have a primary care provider, please follow up with them.) Interventions: ED Discharge Assessment Last Done: 12/23/22 11:15 Discharge Date/Time: 12/23/22 11:15 Print Language: Nauruan
[2022-12-23 07:41] VITALS: BP 144/83; PULSE 64; RESP 18; O2SAT 99
[2022-12-23] MEDS: ALPRAZolam 0.5 MG TABLET 1 MG PO (07:49)
--- NOTE | 2022-12-23 07:51 | PC.NURSE ---
patient a&ox3, pt states her last normal bm has been 5 days ago and has had diarrhea since but notes she took MOM which contributed to the diarrhea. pt c/o low abd pain which radiates to mid/left/right areas, pt states she feels bloated as well, c/o 9/10 abd pain, + bs all quadrants, pt medicated for her anxiety, vss, pt drinking po contrast for ct scan, call zacarias within reach, will continue to monitor.
[2022-12-23 08:00] VITALS: BP 121/51; PULSE 101; RESP 18; TEMP 36.7; O2SAT 95
[2022-12-23 09:39] VITALS: BP 134/89; PULSE 74; RESP 18; TEMP 36.8; O2SAT 99
--- NOTE | 2022-12-23 09:42 | PC.NURSE ---
a&ox3, vss, pt verbalizing 8/10 abdominal pain that radiates towards the left and right side. pt's abdomen tender to touch but does not display any grimacing. rebound tenderness in RLQ not detected. call zacarias placed within reach. will continue to monitor.
[2022-12-23] MEDS: iohexoL 350 MG/ML 100 ML INFUS..BTL 85 ML IV (09:46)
== END 2022-12-23 11:15 | disposition home or self-care (01) ==
PROVIDERS: Emergency Provider Emergency Medicine
DX: I88.0 Nonspecific mesenteric lymphadenitis (principal); R11.2 Nausea with vomiting, unspecified; R19.7 Diarrhea, unspecified; Z79.899 Other long term (current) drug therapy
CPT/HCPCS: 36415; 74177; 80053; 81003; 83690; 85027; 96361; 96374; 96375; 99284; 99285; J1885; J2405; Q9967

== ENCOUNTER 2023-05-13 18:23 | Emergency (ER) | payer OTHER, SELFPAY ==
--- NOTE | 2023-05-13 18:25 | ECG_ITS ---
Test Reason : ANXITY Blood Pressure : / mmHG Vent. Rate : 094 BPM Atrial Rate : 094 BPM P-R Int : 140 ms QRS Dur : 090 ms QT Int : 376 ms P-R-T Axes : 044 -15 080 degrees QTc Int : 470 ms Normal sinus rhythm Left ventricular hypertrophy with repolarization abnormality ( R in aVL ) Abnormal ECG When compared with ECG of 31-OCT-2022 16:39, Premature atrial complexes are no longer Present Referred By: Lynda Jose Electronically Signed By:BIBI AVILA MD
[2023-05-13 18:39] VITALS: BP 180/80; PULSE 98; RESP 18; TEMP 36.4; O2SAT 96; BMI 38.0
--- NOTE | 2023-05-13 18:42 | ED.GENADULT ---
HPI - General Adult General Chief complaint: Anxiety Stated complaint: Chest pressure Time Seen by Provider: 05/13/23 21:29 Source: patient Mode of arrival: ambulatory Limitations: no limitations History of Present Illness HPI narrative: Patient history of anxiety on Xanax 1 mg 3 times a day as needed ran out of the medication for last 2 days feeling more anxious unable to sleep for last few days with denies any urinary complaints Related Data Previous Rx's Medication Instructions Recorded amoxicillin 875 mg-potassium 1 tab PO BID #20 tabs 08/27/22 clavulanate 125 mg tablet oxycodone 5 mg tablet 5 mg PO Q6H PRN pain #20 tabs 08/27/22 alprazolam 1 mg tablet (Xanax) 1 mg PO TID PRN anxiety #7 tabs 10/31/22 fluoxetine 20 mg capsule (Prozac) 20 mg PO DAILY #30 caps 10/31/22 ondansetron 4 mg disintegrating 4 mg PO Q8H 3 days #9 tabs 12/23/22 tablet alprazolam 1 mg tablet 1 mg PO TID PRN anxiety #6 tabs 05/13/23 Allergies Allergy/AdvReac Type Severity Reaction Status Date / Time No Known Allergies Allergy Verified 08/27/22 05:11 Review of Systems Review of Systems: Yes all other systems are reviewed and are negative PMFSH Past Medical History Medical History (Updated 05/14/23 @ 23:40 by Griffin Ferrer MD) Anxiety Social History Social History Alcohol intake: current Alcohol intake frequency: does not drink Smoked in Last 30 Days: No Use of substances other than those prescribed or required for medical reasons: No Advance Directives: No Advance Directives Information Provided: No Physical Exam ED Vital Signs: Vital Signs - 24 hr 05/13/23 18:39 05/13/23 21:30 05/13/23 21:30 Temperature 97.6 F Pulse Rate 98 66 Pulse Rate [Monitor] 73 Respiratory Rate 18 16 Blood Pressure 180/80 H 155/81 H Pulse Oximetry 96 98 Oxygen Delivery Method Room Air Room Air BMI result Body Mass Index 38.0 Appearance: Alert. Oriented X3. No acute distress. ENT: Pharynx normal. Oral Mucosa moist Neck: Normal inspection. Neck supple. CVS: Normal heart rate and rhythm. Pulses normal. Respiratory: No respiratory distress. Equal air entry bilateral, no wheezing/rales/rhonchi Abdomen: Soft and nontender. Bowel sounds are present, Skin: Skin warm and dry. Normal skin color. Normal skin turgor. Extremities: No lower extremity edema. No calf tenderness Neuro: Oriented X 3. Course Course Course Narrative: RME performed by Lynda Jose PA-C. Patient is a 53 year old assigned female at presenting to the emergency department with chest pressure. Labs, imaging, and swabs ordered. Patient placed back in the waiting room pending room availability and results. Dr. Ferrer evaluated and dispositioned this patient. Medications Administered Discontinued Medications Generic Name Dose Route Start Last Admin Trade Name Freq PRN Reason Stop Dose Admin Alprazolam 1 mg 05/13/23 21:43 05/13/23 21:51 Alprazolam 0.5 Mg Tablet PO 05/13/23 21:44 1 mg ONCE ONE Administration Medical Decision Making Medical Decision Making [facility] Narrative: Patient with dietary came in with anxiety symptoms and lack of sleep ran out of her Xanax will give prescription for Xanax advised to follow with PCP Lab Data MDM Lab Attestation statement: I reviewed the patient's lab results. 05/13/23 19:27 05/13/23 19:27 Labs: Lab Results 05/13/23 05/13/23 Range/Units 19:27 21:30 WBC 8.6 (4.8-10.8) X10*3/uL RBC 4.49 (4.20-5.50) X10*6/uL Hgb 12.4 (12.0-16.0) g/dl Hct 38.7 (37.0-47.0) % MCV 86.2 (80.0-98.0) fL MCH 27.6 (27.0-33.0) pg MCHC 32.0 (31.0-35.0) g/dl RDW 13.3 (11.0-16.0) % Plt Count 276 (160-400) X10*3/uL MPV 9.0 L (9.4-12.3) fL Immature Gran % (Auto) 0.1 (0.0-0.4) % Neut % (Auto) 73.3 H (45-73) % Lymph % (Auto) 18.3 L (20-40) % Riley % (Auto) 6.7 (2-11) % Eos % (Auto) 1.4 (0-4) % Baso % (Auto) 0.2 (0-2) % Lymph # (Auto) 1.6 (1.2-4.9) X10*3/uL Riley # (Auto) 0.6 (0.1-1.2) X10*3/uL Eos # (Auto) 0.1 (0.0-0.4) X10*3/uL Baso # (Auto) 0.0 (0.0-0.2) X10*3/uL Abs Immat Gran (auto) 0.01 (0.00-0.03) X10*3/uL Absolute Neuts (auto) 6.3 (2.0-8.3) x10*3/uL Absolute Nucleated RBC 0.000 (0.0-0.012) X10*3/uL Nucleated RBC % (auto) 0.0 (0.0-0.2) /100WBC PT 12.6 (11.1-13.3) SEC INR 1.0 (0.9-1.1) APTT 29.9 (26.0-36.4) SEC Sodium 139 (135-145) mmol/L Potassium 4.5 (3.3-5.1) mmol/L Chloride 104 (96-108) mmol/L Carbon Dioxide 24 (22-29) mmol/L Anion Gap 16 (12-20) BUN 10 (9-16) mg/dL Creatinine 0.79 (0.5-1.4) mg/dL Estim Creat Clear Calc 114.9 Estimated GFR > 60 Random Glucose 142 H (60-115) mg/dL Calcium 9.3 (8.4-10.2) mg/dL Magnesium 2.2 (1.6-2.6) mg/dL Total Bilirubin 0.5 (0.0-1.0) mg/dL AST 39 H (5-31) U/L ALT 33 H (0-31) U/L Alkaline Phosphatase 62 (39-117) U/L Troponin I High Sens < 2.7 (<3.5-17.0) ng/L Total Protein 7.9 (6.5-8.0) g/dL Albumin 4.0 (3.5-5.0) g/dL Urine Color Yellow Urine Appearance Cloudy Urine pH 5.5 (5.0-9.0) Ur Specific [place] 1.015 (1.005-1.025) Urine Protein Negative (Neg-Trace) mg/dL Urine Glucose (UA) Negative (Negative) mg/dL Urine Ketones 40 (Negative) mg/dL Urine Blood Negative (Negative) Urine Nitrite Negative (Negative) Ur Leukocyte Esterase Trace H (Negative) Urine RBC 0-2 (0-2) /HPF Urine WBC 11-20 H (0-5) /HPF Ur Squamous Epith Cells 11-20 (0-2) /HPF Urine Bacteria 4+ (None Seen) Hyaline Casts 0-2 (0-2) /LPF Influenza Type A (PCR) NEGATIVE (Negative) Influenza Type B (PCR) NEGATIVE (Negative) RSV RNA Qual (PCR) NEGATIVE (Negative) SARS-CoV-2 RNA (RT-PCR) NEGATIVE (Negative) Discharge Plan Discharge Clinical Impression: Acute anxiety Patient Disposition: Home, Self-Care Instructions: Panic Disorder (ED) Additional Instructions: Take medication daily for increased anxiety do not take more than prescribed dose Follow the PCP/psychiatrist Prescriptions: New alprazolam 1 mg tablet 1 mg PO TID PRN (Reason: anxiety) Qty: 6 0RF No Action amoxicillin-pot clavulanate 875-125 mg tablet 1 tab PO BID Qty: 20 0RF oxycodone 5 mg tablet 5 mg PO Q6H PRN (Reason: pain) Qty: 20 0RF Rx Instructions: Partial Fill upon patient request. fluoxetine [Prozac] 20 mg capsule 20 mg PO DAILY Qty: 30 0RF alprazolam [Xanax] 1 mg tablet 1 mg PO TID PRN (Reason: anxiety) Qty: 7 0RF ondansetron 4 mg tablet,disintegrating 4 mg PO Q8H 3 Days Qty: 9 0RF Interventions: ED Discharge Assessment Last Done: 05/13/23 22:06 Discharge Date/Time: 05/13/23 22:07
[2023-05-13 19:32] LABS: MANUAL DIFF FLAG NO
--- NOTE | 2023-05-13 19:32 | MHC.EDTECH ---
Patient ekg taken and was read by Provider ,blood drawn and rsv /covid swab collected and sent to lab .
[2023-05-13 19:35] LABS: Basophils Percent Auto 0.2 % (0-2); Eosinophils Absolute Auto 0.1 X10*3/uL (0.0-0.4); Eosinophils Percent Auto 1.4 % (0-4); Hematocrit 38.7 % (37.0-47.0); Hemoglobin 12.4 g/dl (12.0-16.0); Imm Gran Abs Auto 0.01 X10*3/uL (0.00-0.03); Imm Gran Pct Auto 0.1 % (0.0-0.4); Lymphocytes Absolute Auto 1.6 X10*3/uL (1.2-4.9); Lymphocytes Percent Auto 18.3 % (20-40); Mean Corpuscular Hemoglobin 27.6 pg (27.0-33.0); Mean Corpuscular Volume 86.2 fL (80.0-98.0); Monocytes Absolute Auto 0.6 X10*3/uL (0.1-1.2); Monocytes Percent Auto 6.7 % (2-11); Neutrophils Absolute Auto 6.3 x10*3/uL (2.0-8.3); Neutrophils Percent Auto 73.3 % (45-73); Platelet Count 276 X10*3/uL (160-400); Red Blood Count 4.49 X10*6/uL (4.20-5.50); Red Cell Distribution Width 13.3 % (11.0-16.0); White Blood Count 8.6 X10*3/uL (4.8-10.8)
[2023-05-13 19:47] LABS: Alanine Aminotransferase 33 U/L (0-31); Alkaline Phosphatase 62 U/L (39-117); Anion Gap 16 (12-20); Aspartate Amino Transferase 39 U/L (5-31); Bilirubin Total 0.5 mg/dL (0.0-1.0); Blood Urea Nitrogen 10 mg/dL (9-16); Calcium 9.3 mg/dL (8.4-10.2); Carbon Dioxide 24 mmol/L (22-29); Chloride 104 mmol/L (96-108); Creatinine Clr Calc Pharmacy 114.9; Estimated Glomerular Filt Rate > 60; Glucose Random 142 mg/dL (60-115); Magnesium 2.2 mg/dL (1.6-2.6); Potassium 4.5 mmol/L (3.3-5.1); Sodium 139 mmol/L (135-145); Total Protein 7.9 g/dL (6.5-8.0)
[2023-05-13 19:49] LABS: Prothrombin Time 12.6 SEC (11.1-13.3)
[2023-05-13 19:51] LABS: Partial Thromboplastin Time 29.9 SEC (26.0-36.4)
[2023-05-13 19:55] LABS: Troponin-I High Sensitivity < 2.7 ng/L (<3.5-17.0)
[2023-05-13 20:16] LABS: Influenza A PCR NEGATIVE (Negative); Influenza B PCR NEGATIVE (Negative); Resp Syncy Virus RNA Qual PCR NEGATIVE (Negative); SARS COV2 PCR INHOUSE NEGATIVE (Negative)
[2023-05-13 21:30] VITALS: BP 155/81; PULSE 66; PULSE 73; RESP 16; O2SAT 98
--- NOTE | 2023-05-13 21:41 | PC.NURSE ---
PT CHANGED INTO [facility] PLACED ON HEART MONITOR. DR. RAMIREZ AT BEDSIDE NOW.
[2023-05-13 21:43] LABS: Appearance Urine Cloudy; Color Urine Yellow; Glucose Urine UA Negative (Negative); Leukocyte Esterase Urine Trace (Negative); Nitrite Urine Negative (Negative); PH 5.5 (5.0-9.0); Specific Gravity - Urine 1.015 (1.005-1.025); UMIC TRIGGER UACC YES; Urine Blood Negative (Negative); Urine Ketones 40 mg/dL (Negative); Urine Protein Negative (Neg-Trace)
[2023-05-13 21:45] LABS: Bacteria Urine 4+ (None Seen); Hyaline Casts Urine 0-2 /LPF (0-2); RBC Urine 0-2 /HPF (0-2); UACC Culture Trigger YES
[2023-05-13] MEDS: ALPRAZolam 0.5 MG TABLET 1 MG PO (21:51)
--- NOTE | 2023-05-14 11:56 | PC.NURSE ---
patient called and HEIDI ( Nunu) wants the provider to add an indication for the reason for a early refill of her Xanax; as not due until 04-17-23. AUSTEN saw the patient for RME but attending MD is not here today, therefore we cannot help the patient now. I did call this patient back explaining the above to her and she will attempt to stay out of ED until refill done.
== END 2023-05-13 22:07 | disposition home or self-care (01) ==
PROVIDERS: Physician Assistant Medical; Emergency Provider Internal Medicine
DX: F41.9 Anxiety disorder, unspecified (principal); I10 Essential (primary) hypertension; Z20.822 Contact with and (suspected) exposure to COVID-19; Z20.828 Contact with and (suspected) exposure to other viral communicable diseases; Z79.899 Other long term (current) drug therapy
CPT/HCPCS: 0241U; 80053; 81001; 83735; 84484; 85025; 85610; 85730; 87086; 93005; 99283; 99285

== ENCOUNTER → 2023-05-13 18:25 | Outpatient (BNV) | payer OTHER, SELFPAY | PROVIDERS: Emergency Provider Internal Medicine; Visit Provider Internal Medicine Cardiovascular Disease | DX: R07.89 Other chest pain (principal) | CPT/HCPCS: 93010 ==

== ENCOUNTER 2023-09-06 11:56 | Outpatient (AMB) | payer OTHER, SELFPAY ==
[2023-09-06 11:59] VITALS: BP 150/90; PULSE 100; TEMP 36.2; O2SAT 98; BMI 38.8
--- NOTE | 2023-09-06 11:59 | AM.OFFWIN_ITS ---
Intake Vital Signs 09/06/23 11:59 Height 5 ft 9 in Weight 263 lb BMI 38.8 BP 150/90 H Blood Pressure Location Lt brachial Position Sitting Pulse 100 Pulse Source Pulse Oximeter Temp 97.2 F Temp Source Temporal Artery Scan Pulse Oximetry (%) 98 Oxygen Delivery Method Room Air Intake Visit Reasons: EP upper respiratory/asthma issues Intake Note: pt is here today for upper respiratory asthma issues started 1 week ago Patient Tobacco Use Status: Never used Tobacco Allergies steroids Allergy (Mild, Uncoded 09/06/23 12:07) Unknown Medication List - Last Reconciled 09/06/23 by Kirk Pringle MD albuterol sulfate 90 mcg/actuation (Ventolin HFA) inhalation alprazolam (Xanax) 1 mg PO TID PRN atenolol 50 mg PO DAILY azithromycin 250 mg PO ONCE 5 days budesonide-formoterol 160-4.5 mcg/actuation (Symbicort) 2 puffs inhalation BID 30 days conj estrog-medroxyprogest tru 0.625 mg (14)/ 0.625mg-5mg(14) (Premphase) 1 tab PO DAILY lisinopril 40 mg PO DAILY prazosin 1 mg PO BEDTIME prednisone 10 mg PO DAILY 5 days quetiapine mg PO Do you need a note to return to daycare/school/sports/work: No HPI EP upper respiratory/asthma issues HPI Details Patient is a 53-year-old female came in today to be evaluated for possible chest infection Patient says that she has been feeling sick for the past 10 days, started with sore throat postnasal drip mild fever Fever subsided, and now dry cough which occasionally brings up green phlegm Patient does have asthma and she has been using her ProAir inhaler every 4 hours When she talks a lot she starts coughing. Patient says that she feels short of breath and tired and fatigued There is no nausea vomiting no abdominal pain On examination there is no wheezing but she also does not have much air movement I have ordered chest x-ray I have sent azithromycin, prednisone 10 mg once a day for 5 days And Symbicort inhaler. Patient is off for 2 days. If not improved in 2 days patient will follow up with her primary care [facility] Medical History Anxiety Social History Alcohol intake: current Alcohol intake frequency: does not drink Patient Tobacco Use Status: Never used Tobacco Review of Systems Const All systems reviewed & are unremarkable except as noted in HPI and below Physical Exam Vital Signs: Last Vital Signs Temp 97.2 F 09/06/23 11:59 Pulse 100 09/06/23 11:59 BP 150/90 H 09/06/23 11:59 Pulse Ox 98 09/06/23 11:59 Oxygen Delivery Method Room Air 09/06/23 11:59 BMI result Body Mass Index 38.8 Const General: no acute distress HEENT Other: Mild throat erythema present, uvula midline, no exudate. Ears: mastoids normal General nose exam: Normal external nose present Throat: Yes posterior oropharynx abnormal Neck Neck: Yes no lymphadenopathy Resp Other: No wheezing but not much air movement Effort & Inspection: normal respiratory effort Cardio Other: S1 S2 Psych Mental Status: mental status grossly normal Assessment & Plan Assessment & Plan (1) Acute bronchitis: Code(s): J20.9 - Acute bronchitis, unspecified Qualifiers: Bronchitis organism: unspecified organism Qualified Code(s): J20.9 - Acute bronchitis, unspecified (2) Shortness of breath: Code(s): R06.02 - Shortness of breath Plan Patient is a 53-year-old female came in today to be evaluated for possible chest infection Patient says that she has been feeling sick for the past 10 days, started with sore throat postnasal drip mild fever Fever subsided, and now dry cough which occasionally brings up green phlegm Patient does have asthma and she has been using her ProAir inhaler every 4 hours When she talks a lot she starts coughing. Patient says that she feels short of breath and tired and fatigued There is no nausea vomiting no abdominal pain On examination there is no wheezing but she also does not have much air movement I have ordered chest x-ray I have sent azithromycin, prednisone 10 mg once a day for 5 days And Symbicort inhaler. Patient is off for 2 days. If not improved in 2 days patient will follow up with her primary care Orders: Orders XR chest 2V Today J20.9 - Acute bronchitis, unspecified, R06.02 - Shortness of breath Medications: New azithromycin Take 2 tablets today then 1 daily 250 mg PO ONCE 5 days 6 tabs 0RF J06.9 - Acute upper respiratory infection, unspecified prednisone 10 mg PO DAILY 5 days 5 tabs 0RF budesonide-formoterol 160-4.5 mcg/actuation (Symbicort) 2 puffs inhalation BID 30 days 10.2 grams 0RF J45.909 - Unspecified asthma, uncomplicated Discontinued ondansetron Discontinued Reason: Patient no longer taking 4 mg PO Q8H 3 days 9 tabs 0RF alprazolam Discontinued Reason: Patient no longer taking 1 mg PO TID PRN 6 tabs 0RF anxiety amoxicillin-pot clavulanate 875-125 mg Discontinued Reason: Patient no longer taking 1 tab PO BID 20 tabs 0RF oxycodone Partial Fill upon patient request. Discontinued Reason: Patient no longer taking 5 mg PO Q6H PRN 20 tabs 0RF pain fluoxetine (Prozac) Discontinued Reason: Patient no longer taking 20 mg PO DAILY 30 caps 0RF Coding Level of Care Code New Pt Level 4 (60302) Diagnoses Acute bronchitis, unspecified organism J20.9 Bronchitis organism: unspecified organism Shortness of breath R06.02
== END 2023-09-06 12:33 | disposition home or self-care (01) ==
PROVIDERS: Visit Provider Internal Medicine
DX: J20.9 Acute bronchitis, unspecified (principal); R06.02 Shortness of breath
CPT/HCPCS: 99204

== ENCOUNTER 2023-09-06 12:13 | Outpatient (REF) | payer OTHER, SELFPAY ==
--- NOTE | ~2023-09-06 | XR_ITS ---
EXAMINATION: XR CHEST CLINICAL INFORMATION: Acute bronchitis. COMPARISON: None available. TECHNIQUE: 2 views of the chest were obtained. FINDINGS: The lungs are clear. The cardiomediastinal silhouette is normal in size. There is no pleural effusion or pneumothorax. No acute osseous abnormality. XR/XR chest 2V IMPRESSION: No acute cardiopulmonary findings.
== END 2023-09-06 12:14 | disposition home or self-care (01) ==
LOC: HO.HMGCX 12:13
PROVIDERS: Visit Provider Internal Medicine
DX: J20.9 Acute bronchitis, unspecified (principal); R06.02 Shortness of breath
CPT/HCPCS: 71046

== ENCOUNTER 2023-10-29 06:04 | Emergency (ER) | payer OTHER, SELFPAY ==
[2023-10-29] VITALS (8 sets, daily range): BP systolic 131–178; BP diastolic 75–110; PULSE 66–154; RESP 14–18; TEMP 36.5–37; O2SAT 97–98; BMI 39.1
--- NOTE | 2023-10-29 | ECG_ITS ---
Test Reason : AFIB Blood Pressure : / mmHG Vent. Rate : 148 BPM Atrial Rate : 000 BPM P-R Int : 000 ms QRS Dur : 092 ms QT Int : 308 ms P-R-T Axes : 000 -01 129 degrees QTc Int : 483 ms Atrial fibrillation with rapid ventricular response ST & T wave abnormality, consider lateral ischemia Abnormal ECG When compared with ECG of 13-MAY-2023 18:32, Atrial fibrillation has replaced Sinus rhythm Vent. rate has increased BY [address] now depressed in Anterolateral leads Referred By: Generic ED Physician Electronically Signed By:BIBI AVILA MD
--- NOTE | ~2023-10-29 | XR_ITS ---
EXAMINATION: XR CHEST CLINICAL INFORMATION: Dyspnea COMPARISON: Chest radiograph from 09/06/2023 TECHNIQUE: Frontal view of the chest was obtained. FINDINGS: No focal consolidation. No pneumothorax. Trachea is midline. Cardiac mediastinal silhouette is not enlarged. No large pleural effusion. Osseous structures are intact. Soft tissues are unremarkable. XR/XR chest 1V IMPRESSION: No acute cardiopulmonary process.
[2023-10-29] MEDS: dilTIAZem HCL 50 MG/10 ML VIAL 10 MG IVPUSH ×2 (06:23→06:35)
[2023-10-29 06:35] LABS: MANUAL DIFF FLAG NO
--- NOTE | 2023-10-29 06:35 | ED.GENADULT ---
HPI - General Adult General Chief complaint: General Medical Stated complaint: PALPATATIONS, HYPERTENSIVE Time Seen by Provider: 10/29/23 06:34 Source: patient and RN notes reviewed Mode of arrival: ambulatory Limitations: no limitations History of Present Illness ED Provider: Aurora Lowery PA-C HPI narrative: This is a 53-year-old female, with a history of atrial fibrillation not on anticoagulants rate controlled on atenolol, hypertension, panic disorder, and asthma, who presents emergency department with complaints of new onset palpitations which started this morning. Patient states that she awoke with sudden onset dental pain and developed palpitation shortly after an called EMS. She states that she has a sense of ?uneasiness?, feeling anxious, lightheaded with palpitations. She denies any chest pain or shortness of breath. Patient states that 3 days ago she felt as though her pulse was low and missed a dose of her atenolol. She states that she has a history of atrial fibrillation however this has been controlled for many years, has not had an event in 3 years. She also states that 3 days ago she started on metformin due to recent weight changes while being on Seroquel. She states that she has had ongoing dental problems for some time however states over the last several weeks she has had increased pain in her right upper dentition. She does not have a dentist at this time. No fevers, chills, abdominal pain, nausea, vomiting or diarrhea. No recent trauma, surgery or hospitalizations. Reports history of alcohol abuse many years ago, she states that she has not used alcohol in many years. No other complaints or concerns at this time MD complaint: Palpitations Onset (ago): minute(s) Radiation: non-radiation Relieving factors: none Exacerbating factors: none Treatments prior to arrival: none Related Data Home Medications ?Medication ?Instructions ?Recorded ?Confirmed albuterol sulfate 90 mcg/actuation inhalation 09/06/23 09/06/23 aerosol inhaler (Ventolin HFA) atenolol 50 mg tablet 50 mg PO DAILY 09/06/23 09/06/23 conj estrogen-medroxyprogesterone 1 tab PO DAILY 09/06/23 09/06/23 0.625 mg(14)/0.625 mg-5mg(14) tablet (Premphase) lisinopril 40 mg tablet 40 mg PO DAILY 09/06/23 09/06/23 prazosin 1 mg capsule 1 mg PO BEDTIME 09/06/23 09/06/23 quetiapine 25 mg tablet mg PO 09/06/23 09/06/23 Previous Rx's ?Medication ?Instructions ?Recorded alprazolam 1 mg tablet (Xanax) 1 mg PO TID PRN anxiety #7 tabs 10/31/22 azithromycin 250 mg tablet 250 mg PO ONCE 5 days #6 tabs 09/06/23 budesonide-formoterol HFA 160 2 puff inhalation BID 30 days 09/06/23 mcg-4.5 mcg/actuation aerosol #10.2 grams inhaler (Symbicort) prednisone 10 mg tablet 10 mg PO DAILY 5 days #5 tabs 09/06/23 acetaminophen 500 mg tablet 1,000 mg (2 x 500 mg) PO Q8H PRN 10/29/23 (Tylenol Extra Strength) pain #30 tabs amoxicillin 875 mg-potassium 1 tab PO BID 7 days #14 tabs 10/29/23 clavulanate 125 mg tablet apixaban 5 mg tablet (Eliquis) 5 mg PO BID 30 days #60 tabs 10/29/23 blood-glucose meter #1 ea 10/29/23 morphine 15 mg immediate release 15 mg PO Q6H PRN severe pain 10/29/23 tablet (scale score 7-10) #10 tabs Allergies Allergy/AdvReac Type Severity Reaction Status Date / Time steroids AdvReac Mild Unknown Uncoded 10/29/23 06:18 Review of Systems Review of Systems: Yes all other systems are reviewed and are negative Constitutional: Constitutional: Reports as per [facility] Past Medical History Attestation statement: The following information was validated with the patient. Medical History Anxiety Social History Social History Alcohol intake: never Patient Tobacco Use Status: Never used Tobacco Physical Exam ED Vital Signs: Vital Signs - 24 hr 10/29/23 06:12 10/29/23 06:23 10/29/23 06:35 Temperature 98.6 F Pulse Rate 154 H 149 H 134 H Respiratory Rate 16 Blood Pressure 162/95 H Pulse Oximetry 98 Oxygen Delivery Method Room Air 10/29/23 07:18 10/29/23 07:49 10/29/23 07:50 Temperature 97.8 F Pulse Rate 145 H 131 H 131 H Respiratory Rate 18 Blood Pressure 131/95 H 151/91 H 151/91 H Pulse Oximetry 97 Oxygen Delivery Method Room Air 10/29/23 09:44 Temperature 98.1 F Pulse Rate 66 Respiratory Rate 17 Blood Pressure 131/80 Pulse Oximetry 98 Oxygen Delivery Method Room Air BMI result Body Mass Index 39.1 Const General: cooperative, comfortable and no acute distress Orientation/consciousness: patient oriented x3 Limitations: no limitations [facility] Head: Yes normal to inspection, Yes normocephalic and Yes atraumatic Ears: hearing grossly normal bilaterally General nose exam: Normal external nose present Face and sinus: Yes normal facial exam Mouth: Normal oral and palatal mucosa present, oropharynx normal and moist mucous membranes Teeth image: 1. Poor dentition throughout, absent missing teeth as well as dental decay noted in teeth 1 through 4, with tenderness palpation no surrounding gingival erythema, edema or fluctuance noted. No obvious dental abscess noted. She is speaking in full sentences. No trismus, drooling or dysphonia. Throat: Yes posterior oropharynx normal Eyes General: appearance normal, both eyes and all related structures Eyelids: Yes eyelids normal Conjunctivae: conjunctivae normal Sclerae: sclerae normal Pupils: Equal, round and reactive pupils present EOM: EOMs intact bilaterally Neck Neck: Yes normal visual inspection, Yes full ROM and Yes no lymphadenopathy Lymphatic: no lymphadenopathy noted Chest Chest palpation & inspection: normal inspection of the chest Resp Effort & Inspection: normal respiratory effort and able to speak in complete sentences Auscultation: clear to auscultation bilaterally, no crackles, no rales, no rhonchi and no wheezes Cardio Other: Irregularly irregular rate and rhythm GI Inspection: Yes normal to inspection Skin General skin exam: no rashes or lesions noted Trauma: no lacerations or abrasions Wounds: no wounds Neuro General: patient oriented x3 and moves all extremities Cranial nerves: Yes Equal, round and reactive pupils present Extrem General: Yes normal to inspection Right upper extremity: normal to inspection Left upper extremity: normal to inspection Right lower extremity: normal to inspection Left lower extremity: normal to inspection Course Reevaluation(s) Reevaluation #1: Heart rate still remains to be fluctuating between 105-145 despite being on diltiazem IV drip. Discussed with my attending, Dr. Gastelum who ordered an additional diltiazem bolus of 25mg IV and diltiazem 120mg PO. Will continue to closely monitor. Time: 07:41 Reevaluation #2: Pulse has been maintained at 60-75 beats per minute. Repeat EKG revealing normal sinus rhythm. She has no longer in atrial fibrillation. Will discontinue diltiazem drip per my attending physician, Dr. Gastelum, and reassess. She is complaining of worsening dental pain, will order pain medication. We will reach out to unemployment claims adjudicator, Dr. Verma for further management. Time: 08:54 Reevaluation #3: Spoke to Dr. Verma, patient does have hyperglycemia at 171 without known history of diabetes. This increases her risk for the Ramón Vasc score to 3. This is considered to be moderate to high-risk and should be an anticoagulant candidate. She has no contraindications for starting anticoagulants at this time. Dr. Verma recommends increasing atenolol 50 mg once a day to atenolol 100 mg daily, and to start Eliquis today. She has no contraindications to start Eliquis, 1st dose given in the department today. He will follow-up with her in the office outpatient. Time: 09:30 Additional Reevaluation(s): 1127 - patient was having worsening pain in her right upper and lower dentition, therefore morphine and oxycodone was ordered. Patient has not had any relief at this time despite medication, will medicate with oral morphine 15mg QD, 1st dose of antibiotic administered. 1400 -patient has received oxycodone, IV morphine, as well as p.o. morphine, with some relief. Patient reports that she is still uncomfortable with her dental pain. I discussed with my attending physician, Dr. Gastelum, and given she already has had multiple doses of pain medication, we may have to wait until the antibiotics kicking. She can not take NSAIDs as we just started her on anticoagulants. Patient also given topical lidocaine which helped her pain slightly. Patient discharged with strict return precautions. She understands and agrees with plan. She remains to be in normal sinus rhythm, with controlled rate. Patient stable for discharge with close follow-up with Cardiology. Medications Administered Discontinued Medications Generic Name Dose Route Start Last Admin Trade Name Freq PRN Reason Stop Dose Admin Acetaminophen 975 mg 06/08/24 10:34 10/29/23 10:55 Acetaminophen 325 Mg Tablet PO 10/29/23 10:35 975 mg ONCE ONE Administration Amoxicillin/Clavulanate Potassium 875 mg 10/29/23 11:22 10/29/23 11:54 Amoxicillin/Potassium Clav 875 Mg Tablet PO 10/29/23 11:23 875 mg ONCE ONE Administration Apixaban 5 mg 10/29/23 11:26 10/29/23 11:54 Apixaban 5 Mg Tablet PO 10/29/23 11:27 5 mg ONCE ONE Administration Diltiazem HCl 10 mg 10/29/23 06:18 10/29/23 06:23 Diltiazem Hcl 50 Mg/10 Ml Vial IVPUSH 10/29/23 06:19 10 mg STAT STA Administration Diltiazem HCl 10 mg 10/29/23 06:30 10/29/23 06:35 Diltiazem Hcl 50 Mg/10 Ml Vial IVPUSH 10/29/23 06:31 10 mg STAT STA Administration Diltiazem HCl 25 mg 10/29/23 07:43 10/29/23 07:50 Diltiazem Hcl 50 Mg/10 Ml Vial IVPUSH 10/29/23 07:44 25 mg STAT STA Administration Diltiazem HCl 120 mg 10/29/23 07:43 10/29/23 07:49 Diltiazem Hcl Cd 120 Mg Cap.Er.Deg PO 10/29/23 07:44 120 mg ONCE ONE Administration Protocol Diltiazem HCl 125 mg/ Sodium 125 mls @ 0 mls/hr 10/29/23 07:00 10/29/23 07:10 Chloride IVCONT 10 mg/hr .Q0M IFTIKHAR 10 mls/hr Administration Protocol Per Protocol Morphine Sulfate 4 mg 10/29/23 10:34 10/29/23 10:54 Morphine Sulfate 4 Mg/Ml Cartridge IVPUSH 10/29/23 10:35 4 mg ONCE ONE Administration Protocol Morphine Sulfate 15 mg 10/29/23 11:34 10/29/23 11:54 Morphine Sulfate Immed Release 15 Mg Tablet PO 10/29/23 11:35 15 mg ONCE ONE Administration Oxycodone HCl 5 mg 10/29/23 09:13 10/29/23 09:22 Oxycodone Hcl Immed Release 5 Mg Tablet PO 10/29/23 09:14 5 mg ONCE ONE Administration Medical Decision Making Medical Decision Making [facility] Narrative: This is a 53-year-old female, with a history of atrial fibrillation not on anticoagulants, who presents emergency department with complaints of sudden-onset palpitations upon awakening this morning. Unclear on provoking event - dental infection vs recent new metformin medication, and missed dose of atenolol 3 days ago. On arrival, patient with a irregular irregular rate and rhythm with a pulse of 154, blood pressure 162/95. She is afebrile. Patient was seen and evaluated by my attending physician, Dr. Caba. Labs, EKG, chest x-ray ordered. Patient medicated with diltiazem 10 mg IV push, with no relief, 2nd diltiazem 10 mg IV push ordered again, patient remains to be tachycardic in the 130s - 140s. Given persistent afib with poor rate control with two doses of diltiazem, will medicate with diltiazem drip. She has a CHADSVAS2 score of 2. Plan: Labs, EKG, chest xray Differential Diagnosis Differential Diagnoses: The differential diagnosis associated with the presentation includes atrial fibrillation with RVR, ACS, hyperthyroidism, medication side effect, electrolyte derangement, Graves disease, Admission/Observation Consideration of admission/observation: Escalation of care including admission/observation considered pt requiring hospitalization given a fib with RVR needing rate control Consult Healthcare Provider Management of the patient was discussed with: Treating Plant Pumper Dr. Verma - cardiology Lab Data [facility] Lab Attestation statement: I reviewed the patient's lab results. No leukocytosis, stable H&H, magnesium within normal limits. Troponin 3.3, ethanol level negative 10/29/23 06:28 10/29/23 06:28 Labs: Lab Results 10/29/23 Range/Units 06:28 WBC 7.6 (4.8-10.8) X10*3/uL RBC 4.72 (4.20-5.50) X10*6/uL Hgb 12.7 (12.0-16.0) g/dl Hct 39.8 (37.0-47.0) % MCV 84.3 (80.0-98.0) fL MCH 26.9 L (27.0-33.0) pg MCHC 31.9 (31.0-35.0) g/dl RDW 13.5 (11.0-16.0) % Plt Count 362 D (160-400) X10*3/uL MPV 9.0 L (9.4-12.3) fL Immature Gran % (Auto) 0.4 (0.0-0.4) % Neut % (Auto) 55.7 (45-73) % Lymph % (Auto) 31.4 (20-40) % Banks % (Auto) 7.3 (2-11) % Eos % (Auto) 4.5 H (0-4) % Baso % (Auto) 0.7 (0-2) % Lymph # (Auto) 2.4 (1.2-4.9) X10*3/uL Banks # (Auto) 0.6 (0.1-1.2) X10*3/uL Eos # (Auto) 0.3 (0.0-0.4) X10*3/uL Baso # (Auto) 0.1 (0.0-0.2) X10*3/uL Abs Immat Gran (auto) 0.03 (0.00-0.03) X10*3/uL Absolute Neuts (auto) 4.3 (2.0-8.3) x10*3/uL Absolute Nucleated RBC 0.000 (0.0-0.012) X10*3/uL Nucleated RBC % (auto) 0.0 (0.0-0.2) /100WBC PT 12.2 (11.1-13.3) SEC INR 1.0 (0.9-1.1) Sodium 141 (135-145) mmol/L Potassium 3.3 (3.3-5.1) mmol/L Chloride 107 (96-108) mmol/L Carbon Dioxide 22 (22-29) mmol/L Anion Gap 15 (12-20) BUN 14 (9-16) mg/dL Creatinine 0.79 (0.5-1.4) mg/dL Estim Creat Clear Calc 116.6 Estimated GFR > 60 Random Glucose 171 H (60-115) mg/dL Calcium 9.8 (8.4-10.2) mg/dL Magnesium 1.8 (1.6-2.6) mg/dL Total Bilirubin 0.3 (0.0-1.0) mg/dL Direct Bilirubin 0.1 (0.0-0.5) mg/dL AST 17 (5-31) U/L ALT 20 (0-31) U/L Alkaline Phosphatase 68 (39-117) U/L Troponin I High Sens 3.1 (<3.5-17.0) ng/L Total Protein 7.6 (6.5-8.0) g/dL Albumin 3.8 (3.5-5.0) g/dL TSH 1.36 (0.32-4.0) uIU/mL Ethyl Alcohol < 10 mg/dL Independent Interpretation I performed an independent interpretation of an: EKG Interpretation: Atrial fibrillation with RVR at a ventricular rate of 148bpm Repeat EKG normal sinus rhythm at a ventricular rate of 60 beats per minute, no ST elevation or depression. Reviewed my attending physician, Dr. Gastelum. Radiology Impression Discussion of test interpretation with radiology: I have reviewed the radiologist's reading. Radiologist Impression: EXAMINATION: XR CHEST CLINICAL INFORMATION: Dyspnea COMPARISON: Chest radiograph from 09/06/2023 TECHNIQUE: Frontal view of the chest was obtained. FINDINGS: No focal consolidation. No pneumothorax. Trachea is midline. Cardiac mediastinal silhouette is not enlarged. No large pleural effusion. Osseous structures are intact. Soft tissues are unremarkable. XR/XR chest 1V IMPRESSION: No acute cardiopulmonary process. Dictated By: Pietro Cordova MD Independent Historian Clinical information obtained from an independent historian. History obtained from or confirmed by: Friend Friend, max Chronic Conditions Patient?s care impacted by: Other (Atrial fibrillation) Scores Additional Scores CHADSVASC: Score: 3 Comment: Moderate to high-risk for stroke/TIA/systemic embolism Critical Care Time Critical Care Time Critical Care Time: Yes Total Critical Care Time: 55 Attestation: I have personally provided critical care time exclusive of time spent on separately billable procedures. Time includes review of lab data, radiology results, discussion with consultants, and monitoring for potential decompensation. Intervention performed as documented. Discharge Plan Discharge Clinical Impression: Atrial fibrillation, currently in sinus rhythm, Pain, dental, Hyperglycemia Patient Disposition: Still a Patient Instructions: A-fib (Atrial Fibrillation) (ED), Toothache (ED), Blood Thinners (ED) Additional Instructions: You were seen in the emergency department in you were found to be in atrial fibrillation. We gave you IV medications to slow your fast heart rate. You responded well to these medications. The following recommendations are made by our unemployment claims adjudicator, Dr. Verma: Increase the atenolol 50mg to 100mg daily. Take prescribed Eliquis. You already received your 1st dose in the department. Eliquis is a blood thinner, which is to be taken twice per day. Please be advised that this does then your blood therefore it is very important that you seek medical attention with any falls, head strike, severe headache, severe chest pain, or lacerations that do not stop bleeding with pressure. Drink plenty of fluids get plenty of rest. Your teeth are decayed which is causing you to have dental pain as well as start him an infection. Please take prescribed antibiotic as directed. Finish the entire course even if you are feeling better. Take tylenol as directed for pain. Follow-up with your primary care physician. Call the unemployment claims adjudicator on Tuesday for follow-up. Prescriptions: New amoxicillin-pot clavulanate 875-125 mg tablet 1 tab PO BID 7 Days Qty: 14 0RF Eliquis 5 mg tablet 5 mg PO BID 30 Days Qty: 60 0RF (DME) blood-glucose meter Kit See Rx Instructions .Route Qty: 1 0RF Rx Instructions: As directed morphine 15 mg tablet 15 mg PO Q6H PRN (Reason: severe pain (scale score 7-10)) Qty: 10 0RF Rx Instructions: Partial Fill upon patient request. acetaminophen [Tylenol Extra Strength] 500 mg tablet 1,000 mg PO Q8H PRN (Reason: pain) Qty: 30 0RF No Action alprazolam [Xanax] 1 mg tablet 1 mg PO TID PRN (Reason: anxiety) Qty: 7 0RF prazosin 1 mg capsule 1 mg PO BEDTIME quetiapine 25 mg tablet PO Premphase 0.625 mg (14)/ 0.625mg-5mg(14) tablet 1 tab PO DAILY albuterol sulfate [Ventolin HFA] 90 mcg/actuation HFA aerosol inhaler inhalation atenolol 50 mg tablet 50 mg PO DAILY lisinopril 40 mg tablet 40 mg PO DAILY azithromycin 250 mg tablet 250 mg PO ONCE 5 Days Qty: 6 0RF Rx Instructions: Take 2 tablets today then 1 daily prednisone 10 mg tablet 10 mg PO DAILY 5 Days Qty: 5 0RF budesonide-formoterol [Symbicort] 160-4.5 mcg/actuation HFA aerosol inhaler 2 puff inhalation BID 30 Days Qty: 10.2 0RF [place] [facility] [facility] [place] [facility] [place] Group[place] Stand Alone Forms: Work/School Release Interventions: ED Discharge Assessment Last Done: 10/29/23 14:50 Discharge Date/Time: 10/29/23 15:00 Print Language: Greenlandic
[2023-10-29 06:38] LABS: Basophils Absolute Auto 0.1 X10*3/uL (0.0-0.2); Basophils Percent Auto 0.7 % (0-2); Eosinophils Absolute Auto 0.3 X10*3/uL (0.0-0.4); Eosinophils Percent Auto 4.5 % (0-4); Hematocrit 39.8 % (37.0-47.0); Hemoglobin 12.7 g/dl (12.0-16.0); Imm Gran Abs Auto 0.03 X10*3/uL (0.00-0.03); Imm Gran Pct Auto 0.4 % (0.0-0.4); Lymphocytes Absolute Auto 2.4 X10*3/uL (1.2-4.9); Lymphocytes Percent Auto 31.4 % (20-40); Mean Corpuscular HGB Conc 31.9 g/dl (31.0-35.0); Mean Corpuscular Hemoglobin 26.9 pg (27.0-33.0); Mean Corpuscular Volume 84.3 fL (80.0-98.0); Monocytes Absolute Auto 0.6 X10*3/uL (0.1-1.2); Monocytes Percent Auto 7.3 % (2-11); Neutrophils Absolute Auto 4.3 x10*3/uL (2.0-8.3); Neutrophils Percent Auto 55.7 % (45-73); Platelet Count 362 X10*3/uL (160-400); Red Blood Count 4.72 X10*6/uL (4.20-5.50); Red Cell Distribution Width 13.5 % (11.0-16.0); White Blood Count 7.6 X10*3/uL (4.8-10.8)
[2023-10-29 06:47] LABS: Prothrombin Time 12.2 SEC (11.1-13.3)
[2023-10-29 06:54] LABS: Troponin-I High Sensitivity 3.1 ng/L (<3.5-17.0)
[2023-10-29 07:04] LABS: Alanine Aminotransferase 20 U/L (0-31); Albumin Level 3.8 g/dL (3.5-5.0); Alkaline Phosphatase 68 U/L (39-117); Anion Gap 15 (12-20); Aspartate Amino Transferase 17 U/L (5-31); Bilirubin Direct 0.1 mg/dL (0.0-0.5); Bilirubin Total 0.3 mg/dL (0.0-1.0); Blood Urea Nitrogen 14 mg/dL (9-16); Calcium 9.8 mg/dL (8.4-10.2); Carbon Dioxide 22 mmol/L (22-29); Chloride 107 mmol/L (96-108); Creatinine Clr Calc Pharmacy 116.6; Estimated Glomerular Filt Rate > 60; Ethanol < 10 mg/dL; Glucose Random 171 mg/dL (60-115); Magnesium 1.8 mg/dL (1.6-2.6); Potassium 3.3 mmol/L (3.3-5.1); Sodium 141 mmol/L (135-145); Total Protein 7.6 g/dL (6.5-8.0)
[2023-10-29] MEDS: dilTIAZem HCL 125 MG in 0.9 % Sodium Chloride 100 ML 10 MG IVCONT (07:10)
[2023-10-29 07:14] LABS: TSH reflex Free T4 1.36 uIU/mL (0.32-4.0)
[2023-10-29] MEDS: dilTIAZem HCL CD 120 MG CAP.ER.DEG PO (07:49)
[2023-10-29] MEDS: dilTIAZem HCL 50 MG/10 ML VIAL 25 MG IVPUSH (07:50)
--- NOTE | 2023-10-29 08:18 | ECG_ITS ---
Test Reason : PALPITATIONS Blood Pressure : / mmHG Vent. Rate : 068 BPM Atrial Rate : 068 BPM P-R Int : 148 ms QRS Dur : 092 ms QT Int : 390 ms P-R-T Axes : 047 -09 055 degrees QTc Int : 414 ms Normal sinus rhythm Normal ECG When compared with ECG of 29-OCT-2023 06:10, Sinus rhythm has replaced Atrial fibrillation Vent. rate has decreased BY [address] no longer depressed in Inferior leads ST no longer depressed in Anterolateral leads T wave inversion no longer evident in Lateral leads Referred By: Aurora Lowery Electronically Signed By:BIBI AVILA MD
[2023-10-29] MEDS: oxyCODONE HCl Immed Release 5 MG TABLET PO (09:22)
[2023-10-29] MEDS: Morphine Sulfate 4 MG/ML CARTRIDGE IVPUSH (10:54)
[2023-10-29] MEDS: Acetaminophen 325 MG TABLET 975 MG PO (10:55)
[2023-10-29] MEDS: Morphine Sulfate Immed Release 15 MG TABLET PO (11:54)
[2023-10-29] MEDS: Apixaban 5 MG TABLET PO (11:54)
[2023-10-29] MEDS: Amoxicillin/Potassium Clav 875 MG TABLET PO (11:54)
== END 2023-10-29 15:00 | disposition still patient (30) ==
PROVIDERS: Emergency Medicine; Emergency Provider Emergency Medicine
DX: R00.2 Palpitations (principal); R73.9 Hyperglycemia, unspecified; I48.91 Unspecified atrial fibrillation; K08.89 Other specified disorders of teeth and supporting structures; I10 Essential (primary) hypertension; R06.02 Shortness of breath; Z79.01 Long term (current) use of anticoagulants; Z79.899 Other long term (current) drug therapy
CPT/HCPCS: 36415; 71045; 80048; 80076; 80307; 83735; 84443; 84484; 85025; 85610; 93005; 99284; J2270

== ENCOUNTER → 2023-10-29 06:10 | Outpatient (BNV) | payer OTHER, SELFPAY | PROVIDERS: Emergency Provider Emergency Medicine; Visit Provider Internal Medicine Cardiovascular Disease | DX: I48.91 Unspecified atrial fibrillation (principal) | CPT/HCPCS: 93010 ==

== ENCOUNTER 2023-11-25 10:30 | Outpatient (AMB) | payer OTHER, SELFPAY ==
[2023-11-25 11:00] VITALS: BP 138/82; PULSE 82; TEMP 36.7; O2SAT 97; BMI 36.2
--- NOTE | 2023-11-25 11:00 | AM.OFFWIN_ITS ---
Intake Vital Signs 11/25/23 11:00 Height 5 ft 9 in Weight 245 lb BMI 36.2 BP 138/82 Blood Pressure Location Rt brachial Position Sitting Pulse 82 Pulse Source Pulse Oximeter Temp 98.0 F Temp Source Temporal Artery Scan Pulse Oximetry (%) 97 Intake Visit Reasons: EP RT shoulder pain Intake Note: pt is here for right shoulder pain Patient Tobacco Use Status: Never used Tobacco Allergies steroids Adverse Reaction (Mild, Uncoded 11/25/23 11:01) Unknown Do you need a note to return to daycare/school/sports/work: No HPI HPI Comments History of Present Illness Details 53 y/o female patient who presents to [facility] with c/o right shoulder pain x 2 months now. 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 Pt believes she might have a tendon tear. [facility] Medical History Anxiety Social History Alcohol intake: never Patient Tobacco Use Status: Never used Tobacco Physical Exam Vital Signs: Last Vital Signs Temp 98.0 F 11/25/23 11:00 Pulse 82 11/25/23 11:00 BP 138/82 11/25/23 11:00 Pulse Ox 97 11/25/23 11:00 BMI result Body Mass Index 36.2 Const General: comfortable and no acute distress Nutritional Appearance: obese Orientation/consciousness: patient oriented x3 Neuro General: patient oriented x3, gait normal and moves all extremities Extrem Right upper extremity: normal to inspection and shoulder/upper arm (limited ROM due to pain. ) Details: normal to inspection, tenderness Location: of the A-C joint and abnormal ROM Details: pain with active ROM and pain with passive ROM; no swelling, no lacerations, no ecchymosis, no crepitus, no deformity and no unusual warmth Left upper extremity: normal to inspection and full ROM Psych Speech and movement: Normal speech and movement present Assessment & Plan Assessment & Plan (1) Right shoulder strain: Code(s): S46.911A - Strain of unspecified muscle, fascia and tendon at shoulder and upper arm level, right arm, initial encounter Qualifiers: Encounter type: initial encounter Qualified Code(s): S46.911A - Strain of unspecified muscle, fascia and tendon at shoulder and upper arm level, right arm, initial encounter Plan: Ordered PT Ordered Xray shoulder Acetaminophen for pain relief Muscle relaxants. Orders: Orders XR shoulder RT min 2V Today S46.911A - Strain of unspecified muscle, fascia and tendon at shoulder and upper arm level, right arm, initial encounter Medications: New acetaminophen 1,000 mg (2 x 500 mg) PO Q6H PRN 30 caps 0RF pain (scale score 4- 6) S46.911A - Strain of unspecified muscle, fascia and tendon at shoulder and upper arm level, right arm, initial encounter cyclobenzaprine 10 mg PO BEDTIME 10 tabs 0RF S46.911A - Strain of unspecified muscle, fascia and tendon at shoulder and upper arm level, right arm, initial encounter Coding Level of Care Code Est Pt Level 4 (09531) Diagnoses Strain of right shoulder, initial encounter S46.911A Encounter type: initial encounter Time Spent (min) 20
== END 2023-11-25 12:31 | disposition home or self-care (01) ==
PROVIDERS: Visit Provider Nurse Practitioner Family
DX: S46.911A Strain of unspecified muscle, fascia and tendon at shoulder and upper arm level, right arm, initial encounter (principal)
CPT/HCPCS: 99214

== ENCOUNTER 2023-11-25 11:22 | Outpatient (REF) | payer OTHER, SELFPAY ==
--- NOTE | ~2023-11-25 | XR_ITS ---
EXAMINATION: XR SHOULDER, RIGHT CLINICAL INFORMATION: Right shoulder pain since 2 months COMPARISON: None available. TECHNIQUE: AP external rotation, Grashey and scapular Y of the right shoulder. FINDINGS: No acute fracture or dislocation. The glenohumeral and acromioclavicular alignment is anatomic. Mild degenerative changes involving the right acromioclavicular joint. Glenohumeral joint space is maintained. No abnormal soft tissue calcifications. No acute soft tissue abnormality. XR/XR shoulder RT min 2V IMPRESSION: No acute fracture or dislocation. Mild degenerative changes involving the right acromioclavicular joint.
== END 2023-11-25 11:23 | disposition home or self-care (01) ==
LOC: HO.HMGCX 11:22
PROVIDERS: Visit Provider Nurse Practitioner Family
DX: S46.911A Strain of unspecified muscle, fascia and tendon at shoulder and upper arm level, right arm, initial encounter (principal)
CPT/HCPCS: 73030

== ENCOUNTER 2023-11-29 13:56 | Outpatient (AMB) | payer OTHER, SELFPAY ==
[2023-11-29 14:01] VITALS: BP 140/78; PULSE 88; BMI 35.5
--- NOTE | 2023-11-29 14:01 | A.OFFVIS_ITS ---
Vital Signs 11/29/23 14:01 11/29/23 14:41 Height 5 ft 9 in Weight 240 lb 4.862 oz BMI 35.5 BP 140/78 H 138/80 Blood Pressure Location Lt brachial Lt brachial Position Sitting Sitting Pulse 88 Pulse Source Pulse Oximeter Intake Visit Reasons: [employer]/ H ED fu/needs Eliquis refill Allergies steroids Adverse Reaction (Mild, Uncoded 11/25/23 11:01) Unknown ssri Adverse Reaction (Uncoded 11/29/23 14:26) hypertension Medication List - Last Reconciled 11/29/23 by Radha Weeks NP acetaminophen 1,000 mg (2 x 500 mg) PO Q6H PRN albuterol sulfate 90 mcg/actuation (Ventolin HFA) inhalation alprazolam (Xanax) 1 mg PO TID PRN apixaban (Eliquis) 5 mg PO BID 30 days atenolol 50 mg PO BID blood-glucose meter As directed lisinopril 40 mg PO DAILY metformin ER 500 mg PO DAILY prazosin 1 mg PO BEDTIME PRN quetiapine mg PO HPI Comments Details: 53-year-old female presents today for a new patient visit. On 10/29/2023 she went to the emergency room for palpitations and high blood pressure. She woke up and siddenly felt dental pain and palptiations. She felt a sense of anxiety. She had an episode of atrail fibrillation once about 4 years ago in [place] and converted on her own. She had seen a transverse abdominal muscle surgeon a few times for reassurance her heart was okay due to hypertension history. Reports never was prescribed anything for atrial fibrillation episode and has been on atenolol for some time now. She reports a history of panic disorder, asthma well controlled, hyp ertension, and high blood glucose levels without diagnosis of diabetes. Reports episode 4 years ago of atrial fibrillation was in the setting of alcohol use. She no longer drinks alcohol and avoids caffeine products. She denies smoking or illicit drug use. She reports shortness of breath on exertion which has increase recently. Reports no CAD and is not 100% sure of family history. [facility] Medical History (Updated 11/29/23 @ 14:33 by Radha Weeks NP) Pre-diabetes Asthma Afib Anxiety Family History (Updated 11/29/23 @ 14:36 by Radha Weeks NP) Mother Cardiac arrest Diabetes Father Smoker CKD (chronic kidney disease) Social History (Updated 11/29/23 @ 14:34 by Radha Weeks NP) Alcohol intake: former Patient Tobacco Use Status: Never used Tobacco Review of Systems Const Denies chills, Denies daytime sleepiness, Denies fatigue, Denies fever(s), Denies frequent falls, Denies poor appetite, Denies snoring, Denies stops breathing during sleep, Denies weakness, Denies weight gain and Denies weight loss Eyes Denies loss of vision ENT Denies dizziness and Denies hearing loss Card Denies chest pain, Denies claudication, Denies leg edema, Denies lightheade dness, Denies palpitations, Denies dyspnea, Denies dyspnea on exertion, Denies orthopnea and Denies other (LOC) Resp Denies cough, Denies excessive phlegm production, Denies dyspnea, Denies dyspnea on exertion, Denies snoring and Denies wheezing GI Denies abdominal pain, Denies hematochezia, Denies change in bowel habits, Denies nausea and Denies vomiting Denies dysuria and Denies urinary urgency Musc Denies arthralgias, Denies muscle weakness and Denies numbness Skin/Breast Denies nail changes and Denies rash Neuro Denies Abnormal speech present, Denies dizziness, Denies frequent falls, Denies loss of vision, Denies memory loss, Denies numbness and Denies weakness Psych Denies depression and Denies memory loss Endo Denies fatigue and Denies palpitations Marcell/Lymph Denies easy bruising and Denies other (Anemia) Aller/Immun Denies wheezing Physical Exam Vital Signs: Last Vital Signs Pulse 88 11/29/23 14:01 BP 138/80 11/29/23 14:41 BMI result Body Mass Index 35.5 Const General: healthy appearing and no acute distress Orientation/consciousness: patient oriented x3 HEENT Head: Yes normal to inspection Eyes General: appearance normal, both eyes and all related structures Neck Neck: Yes normal visual inspection Chest Chest palpation & inspection: normal inspection of the chest Resp Effort & Inspection: normal respiratory effort Auscultation: clear to auscultation bilaterally Cardio Jugular venous distension: no JVD Palpation: normal PMI Rate: regular rate Rhythm: regular rhythm Heart sounds: S1 normal heart sound present, S2 normal heart sound present, no click, no gallops, no murmurs and no rubs GI Inspection: Yes normal to inspection Palpation (GI): Soft to palpation Skin General skin exam: no rashes or lesions noted Neuro General: patient oriented x3 Speech: No Abnormal speech present Extrem General: Yes normal to inspection Psych Appearance: grossly normal Assessment & Plan Assessment & Plan (1) Afib: Code(s): I48.91 - Unspecified atrial fibrillation Category: Medical Plan: Second known episode of atrial fibrillation. Started on eliquis 5mg BID in the ED. Avoidance of stimulants discussed. Hydrate well, sleep hygiene, and stress mitigation discussed. Will obtain holter, echo, stress test, and sleep study. Pathophysiology of atrial fibriilation reviewed. (2) Hypertension: Code(s): I10 - Essential (primary) hypertension Category: Medical Plan: Reports high blood pressures at doctors appointments due to anxiety. Advised to montior blood pressures at home and bring the log to next visit. Orders: Orders ECG 3 day holter monitor 11/29/23 I48.91 - Unspecified atrial fibrillation CA lexiscan stress w qi 11/29/23 I48.91 - Unspecified atrial fibrillation CA echo transthoracic complete 11/29/23 I48.91 - Unspecified atrial fibrillation NM cardiolite stress test 11/29/23 I48.91 - Unspecified atrial fibrillation RT home sleep study 11/29/23 G47.10 - Hypersomnia, unspecified Medications: Changed From apixaban (Eliquis) 5 mg PO BID 30 days 60 tabs 0RF To apixaban (Eliquis) 5 mg PO BID 180 tabs 3RF 90 days From atenolol 50 mg PO BID To atenolol 50 mg PO BID 180 tabs 1RF 90 days Coding Level of Care Code New Pt Level 4 (31051) Diagnoses Afib I48.91 Hypertension I10
[2023-11-29 14:41] VITALS: BP 138/80
== END 2023-11-29 14:53 | disposition home or self-care (01) ==
PROVIDERS: Visit Provider Nurse Practitioner
DX: I48.91 Unspecified atrial fibrillation (principal); I10 Essential (primary) hypertension
CPT/HCPCS: 99204

== ENCOUNTER → 2023-11-29 13:56 | Outpatient (BNVA) | payer OTHER, SELFPAY | PROVIDERS: Visit Provider Nurse Practitioner | DX: I48.91 Unspecified atrial fibrillation (principal); I10 Essential (primary) hypertension; Z79.01 Long term (current) use of anticoagulants ==

== ENCOUNTER 2023-12-02 08:44 | Emergency (ER) | payer OTHER, SELFPAY ==
[2023-12-02] VITALS (10 sets, daily range): BP systolic 84–112; BP diastolic 60–78; PULSE 67–165; RESP 14–18; TEMP 36.6; O2SAT 96–99; BMI 36.2
--- NOTE | 2023-12-02 08:48 | ECG_ITS ---
Test Reason : afib Blood Pressure : / mmHG Vent. Rate : 120 BPM Atrial Rate : 000 BPM P-R Int : 000 ms QRS Dur : 096 ms QT Int : 316 ms P-R-T Axes : 000 -08 120 degrees QTc Int : 446 ms Atrial fibrillation with rapid ventricular response Left ventricular hypertrophy with repolarization abnormality ( R in aVL ) Abnormal ECG When compared with ECG of 29-OCT-2023 08:36, Atrial fibrillation has replaced Sinus rhythm Vent. rate has increased BY [address] now depressed in Anterolateral leads T wave inversion now evident in Lateral leads Referred By: Nevaeh Caba Electronically Signed By:Ronni Jackson
[2023-12-02] MEDS: 0.9 % Sodium Chloride 1,000 ML 999 ML IV (09:00)
[2023-12-02 09:04] LABS: MANUAL DIFF FLAG NO
--- NOTE | 2023-12-02 09:04 | ED_ITS ---
HPI - Arrhythmia/Palpitations General Chief Complaint: Arrhythmia/Palpitations Stated Complaint: AFIB Source: patient and old records reviewed Mode of arrival: ambulatory Limitations: no limitations History of Present Illness ED Provider: EVAN MCKNIGHT narrative: 53 yo female with PMH of asthma, anxiety, afib on eliquis and 50mg atenolol BID presents today after drinking something cold then feeling her heart racing her watch showed afib 80s - 160s. She has no CP/SOB. No new issues or illness. She is compliant with medications. MD complaint: atrial fibrillation Onset (ago): hour(s) (1) Duration: constant Severity: moderate Context: occurred during rest Arrhythmia history: atrial fibrillation Associated symptoms: denies other symptoms Treatments prior to arrival: beta-george Related Data Home Medications ?Medication ?Instructions ?Recorded ?Confirmed albuterol sulfate 90 mcg/actuation inhalation 09/06/23 11/29/23 aerosol inhaler (Ventolin HFA) lisinopril 40 mg tablet 40 mg PO DAILY 09/06/23 11/29/23 quetiapine 25 mg tablet mg PO 09/06/23 11/29/23 metformin 500 mg tablet,extended 500 mg PO DAILY 11/29/23 11/29/23 release 24 hr prazosin 1 mg capsule 1 mg PO BEDTIME PRN 11/29/23 11/29/23 Previous Rx's ?Medication ?Instructions ?Recorded alprazolam 1 mg tablet (Xanax) 1 mg PO TID PRN anxiety #7 tabs 10/31/22 blood-glucose meter #1 ea 10/29/23 acetaminophen 500 mg capsule 1,000 mg (2 x 500 mg) PO Q6H PRN 11/25/23 pain (scale score 4-6) #30 caps apixaban 5 mg tablet (Eliquis) 5 mg PO BID 90 days #180 tabs 11/29/23 atenolol 50 mg tablet 50 mg PO BID 90 days #180 tabs 11/29/23 Allergies Allergy/AdvReac Type Severity Reaction Status Date / Time steroids AdvReac Mild Unknown Uncoded 12/02/23 08:52 ssri AdvReac hypertensio Uncoded 12/02/23 08:52 n Review of Systems 2 Review of Systems: Constitutional : No Fever, No Chills, No Fatigue ENT/Mouth : No sore throat, No Rhinorrhea Eyes: No Eye Pain, No Swelling, No Redness Cardiovascular : No Chest Pain, No SOB, No Dyspnea on Exertion, pos palpitations Respiratory : No Cough, No Sputum Gastrointestinal : No Nausea, No Vomiting, No Diarrhea, No abdominal Pain Genitourinary : No Dysuria, No Urinary Frequency, No Hematuria, Musculoskeletal : No joint pain, No Myalgias, No Joint Swelling Skin : No Skin Lesions, No rash Neuro : No Weakness, No Numbness, No Dizziness, no Headache Psych : No Anxiety/Panic, No Depression Heme/Lymph: No Bruising, No Bleeding,No Lymphadenopathy Endocrine : No Polyuria, No Polydipsia All other systems reviewed and are negative [facility] Past Medical History Attestation statement: The following information was validated with the patient. Source: old records reviewed Medical History Pre-diabetes Asthma Afib Anxiety Family History Family History (Updated 11/29/23 @ 14:36 by Radha Weeks NP) Mother Cardiac arrest Diabetes Father Smoker CKD (chronic kidney disease) Social History Social History Alcohol intake: former Patient Tobacco Use Status: Never used Tobacco Advance Directives: No Advance Directives Information Provided: No Do you have a plan to hurt others: No Plan Physical Exam 2 Vital Signs: Vital Signs: Last Vital Signs Temp 97.9 F 12/02/23 08:51 Pulse 89 12/02/23 13:14 Resp 14 12/02/23 13:14 BP 97/64 12/02/23 13:14 Pulse Ox 98 12/02/23 13:14 O2 Del Method Room Air 12/02/23 13:14 BMI result Body Mass Index 36.2 Appearance: Alert. Oriented X3. No acute distress. Eyes: Pupils equal, round and reactive to light. ENT: Pharynx normal. Neck: Normal inspection. Neck supple. CVS: irregular and tachycardic heart rate and rhythm. Pulses normal. Respiratory: No respiratory distress. Breath sounds normal. Abdomen: Soft and nontender. Skin: Skin warm and dry. Normal skin color. Normal skin turgor. Extremities: No lower extremity edema. No calf ttp Neuro: Oriented X 3. No motor deficit. No sensory deficit. Course Course Course Narrative: HR still up to 130s after 20mg bolus of dilt last time did respond to dilt will place on gtt and she is anxious will give IV ativan Medications Administered Generic Name Dose Route Start Last Admin Trade Name Freq PRN Reason Stop Dose Admin Diltiazem HCl 125 mg/ Sodium 125 mls @ 0 mls/hr 12/02/23 10:00 12/02/23 12:35 Chloride IVCONT 10 mg/hr .Q0M IFTIKHAR 10 mls/hr Titration Protocol Per Protocol Sodium Chloride 1,000 mls @ 80 mls/hr 12/02/23 12:15 12/02/23 12:27 Ns IVCONT 80 mls/hr .[id number] IFTIKHAR Administration Discontinued Medications Generic Name Dose Route Start Last Admin Trade Name Freq PRN Reason Stop Dose Admin Diltiazem HCl 20 mg 12/02/23 08:58 12/02/23 09:12 Diltiazem Hcl 50 Mg/10 Ml Vial IVPUSH 12/02/23 08:59 20 mg STAT STA Administration Diltiazem HCl 10 mg 12/02/23 10:15 12/02/23 10:21 Diltiazem Hcl 50 Mg/10 Ml Vial IVPUSH 12/02/23 10:16 10 mg ONCE ONE Administration Sodium Chloride 1,000 mls @ 999 mls/hr 12/02/23 08:58 12/02/23 10:16 Ns IV 12/02/23 09:58 Infused .Q1H1M ONE Infusion Sodium Chloride 500 mls @ 500 mls/hr 12/02/23 10:23 12/02/23 12:35 Ns IV 12/02/23 11:22 Infused .Q1H ONE Infusion Lorazepam 0.5 mg 12/02/23 09:50 12/02/23 10:21 Lorazepam 2 Mg/Ml Vial IVPUSH 12/02/23 09:51 0.5 mg STAT STA Administration Medical Decision Making Medical Decision Making MDM Narrative: 53 yo female with PMH of asthma, anxiety, afib on eliquis and 50mg atenolol BID here with c/o rapid afib after drinking cold water no CP/SOB at this time will need labs, IV dilt and will monitor and hopefully get her to convert she did just see cardiology and has plans to follow up with further outpatient work up. 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 12/02/23 09:00 12/02/23 09:00 Labs: Lab Results 12/02/23 Range/Units 09:00 WBC 9.4 (4.8-10.8) X10*3/uL RBC 4.89 (4.20-5.50) X10*6/uL Hgb 13.1 (12.0-16.0) g/dl Hct 40.7 (37.0-47.0) % MCV 83.2 (80.0-98.0) fL MCH 26.8 L (27.0-33.0) pg MCHC 32.2 (31.0-35.0) g/dl RDW 13.9 (11.0-16.0) % Plt Count 353 (160-400) X10*3/uL MPV 9.1 L (9.4-12.3) fL Immature Gran % (Auto) 0.2 (0.0-0.4) % Neut % (Auto) 59.0 (45-73) % Lymph % (Auto) 30.7 (20-40) % [place] % (Auto) 7.6 (2-11) % Eos % (Auto) 2.1 (0-4) % Baso % (Auto) 0.4 (0-2) % Lymph # (Auto) 2.9 (1.2-4.9) X10*3/uL [place] # (Auto) 0.7 (0.1-1.2) X10*3/uL Eos # (Auto) 0.2 (0.0-0.4) X10*3/uL Baso # (Auto) 0.0 (0.0-0.2) X10*3/uL Abs Immat Gran (auto) 0.02 (0.00-0.03) X10*3/uL Absolute Neuts (auto) 5.5 (2.0-8.3) x10*3/uL Absolute Nucleated RBC 0.000 (0.0-0.012) X10*3/uL Nucleated RBC % (auto) 0.0 (0.0-0.2) /100WBC Hold Blue Top SEE NOTE Sodium 138 (135-145) mmol/L Potassium 3.3 (3.3-5.1) mmol/L Chloride 103 (96-108) mmol/L Carbon Dioxide 23 (22-29) mmol/L Anion Gap 15 (12-20) BUN 24 H (9-16) mg/dL Creatinine 0.75 (0.5-1.4) mg/dL Estim Creat Clear Calc 117.9 Estimated GFR > 60 Random Glucose 146 H (60-115) mg/dL Calcium 9.5 (8.4-10.2) mg/dL Magnesium 2.1 (1.6-2.6) mg/dL Total Bilirubin 0.6 (0.0-1.0) mg/dL Direct Bilirubin 0.1 (0.0-0.5) mg/dL AST 20 (5-31) U/L ALT 21 (0-31) U/L Alkaline Phosphatase 66 (39-117) U/L Troponin I High Sens < 2.7 (<3.5-17.0) ng/L B-Natriuretic Peptide 53 (<100) pg/mL Total Protein 8.1 H (6.5-8.0) g/dL Albumin 4.1 (3.5-5.0) g/dL Independent Interpretation I performed an independent interpretation of an: EKG Interpretation: Rate: 120 Rhythm: afib [place]: left Normal QRS complex. ST T wave : inverted t waves I and aVL, no VANDANA qTC: 446 prior studies: no acute ischemia t waves noted on prior afib The study has been interpreted contemporaneously by me. . Independent Historian Clinical information obtained from an independent historian. History obtained from or confirmed by: EMS External Record Review External record reviewed: Inpatient record and Office record Critical Care Time Critical Care Time Critical Care Time: Yes Total Critical Care Time: 60 Attestation: repeat bolus of IV dilt for rapid afib, dilt gtt, med consult, admission I attest to this time spent taking care of the patient Discharge Plan Discharge Clinical Impression: Atrial fibrillation with rapid ventricular response Patient Disposition: Admitted As Inpatient Prescriptions: No Action alprazolam [Xanax] 1 mg tablet 1 mg PO TID PRN (Reason: anxiety) Qty: 7 0RF (DME) blood-glucose meter Kit See Rx Instructions .Route Qty: 1 0RF Rx Instructions: As directed quetiapine 25 mg tablet PO albuterol sulfate [Ventolin HFA] 90 mcg/actuation HFA aerosol inhaler inhalation lisinopril 40 mg tablet 40 mg PO DAILY prazosin 1 mg capsule 1 mg PO BEDTIME PRN acetaminophen 500 mg capsule 1,000 mg PO Q6H PRN (Reason: pain (scale score 4-6)) Qty: 30 0RF metformin 500 mg tablet extended release 24 hr 500 mg PO DAILY Eliquis 5 mg tablet 5 mg PO BID 90 Days Qty: 180 3RF atenolol 50 mg tablet 50 mg PO BID 90 Days Qty: 180 1RF Print Language: Romansh
[2023-12-02 09:07] LABS: Basophils Percent Auto 0.4 % (0-2); Eosinophils Absolute Auto 0.2 X10*3/uL (0.0-0.4); Eosinophils Percent Auto 2.1 % (0-4); Hematocrit 40.7 % (37.0-47.0); Hemoglobin 13.1 g/dl (12.0-16.0); Imm Gran Abs Auto 0.02 X10*3/uL (0.00-0.03); Imm Gran Pct Auto 0.2 % (0.0-0.4); Lymphocytes Absolute Auto 2.9 X10*3/uL (1.2-4.9); Lymphocytes Percent Auto 30.7 % (20-40); Mean Corpuscular HGB Conc 32.2 g/dl (31.0-35.0); Mean Corpuscular Hemoglobin 26.8 pg (27.0-33.0); Mean Corpuscular Volume 83.2 fL (80.0-98.0); Mean Platelet Volume 9.1 fL (9.4-12.3); Monocytes Absolute Auto 0.7 X10*3/uL (0.1-1.2); Monocytes Percent Auto 7.6 % (2-11); Neutrophils Absolute Auto 5.5 x10*3/uL (2.0-8.3); Platelet Count 353 X10*3/uL (160-400); Red Blood Count 4.89 X10*6/uL (4.20-5.50); Red Cell Distribution Width 13.9 % (11.0-16.0); White Blood Count 9.4 X10*3/uL (4.8-10.8)
[2023-12-02] MEDS: dilTIAZem HCL 50 MG/10 ML VIAL 20 MG IVPUSH (09:12)
--- NOTE | 2023-12-02 09:12 | PC.NURSE ---
verbal order for 10mg administration of diltiazem d/t blood pressure
[2023-12-02 09:23] LABS: Alanine Aminotransferase 21 U/L (0-31); Albumin Level 4.1 g/dL (3.5-5.0); Alkaline Phosphatase 66 U/L (39-117); Anion Gap 15 (12-20); Aspartate Amino Transferase 20 U/L (5-31); Bilirubin Direct 0.1 mg/dL (0.0-0.5); Bilirubin Total 0.6 mg/dL (0.0-1.0); Blood Urea Nitrogen 24 mg/dL (9-16); Calcium 9.5 mg/dL (8.4-10.2); Carbon Dioxide 23 mmol/L (22-29); Chloride 103 mmol/L (96-108); Creatinine Clr Calc Pharmacy 117.9; Estimated Glomerular Filt Rate > 60; Glucose Random 146 mg/dL (60-115); Magnesium 2.1 mg/dL (1.6-2.6); Potassium 3.3 mmol/L (3.3-5.1); Sodium 138 mmol/L (135-145); Total Protein 8.1 g/dL (6.5-8.0)
[2023-12-02 09:28] LABS: B Type Natriuretic Peptide 53 pg/mL (<100)
[2023-12-02 09:30] LABS: Troponin-I High Sensitivity < 2.7 ng/L (<3.5-17.0)
--- NOTE | 2023-12-02 09:36 | PC.NURSE ---
additional 10mg given to patient. reports increased anxiety, encouraged to stop looking at hr on her apple watch. resting quietly in room with call zacarias within reach, visitor at bedside
[2023-12-02] MEDS: dilTIAZem HCL 50 MG/10 ML VIAL 10 MG IVPUSH (10:21)
[2023-12-02] MEDS: LORazepam 2 MG/ML VIAL 0.5 MG IVPUSH (10:21)
[2023-12-02] MEDS: dilTIAZem HCL 125 MG in 0.9 % Sodium Chloride 100 ML 10 MG IVCONT (10:22)
[2023-12-02] MEDS: 0.9 % Sodium Chloride 500 ML IV (10:29)
[2023-12-02] MEDS: 0.9 % Sodium Chloride 1,000 ML 80 ML IVCONT (12:27)
--- NOTE | 2023-12-02 13:48 | PHA.MEDREC ---
Addendum entered by Celeste Mills RPh 12/02/23 13:55: med rec reviewed Original Note: Pharmacy Consult ? Medication Reconciliation Pharmacy has completed the medication reconciliation. Confirmed medications with patient. Patient is on Metformin 500mg and she takes it every night with dinner. Patient also confirmed she takes her Quetiapine 25mg tab 25mg-50mg at bedtime and she states she took it this morning around 7:30-8:00 this morning along with all her medications except the metformin which she states she took last night with dinner.
--- NOTE | 2023-12-02 14:14 | ECG_ITS ---
Test Reason : BACK TO NSR Blood Pressure : / mmHG Vent. Rate : 062 BPM Atrial Rate : 062 BPM P-R Int : 144 ms QRS Dur : 090 ms QT Int : 406 ms P-R-T Axes : 049 -15 065 degrees QTc Int : 412 ms Normal sinus rhythm Normal ECG When compared to the previous EKG of Sinus rhythm has replaced Afib Referred By: Nevaeh Caba Electronically Signed By:Ronni Jackson
--- NOTE | 2023-12-02 14:24 | PC.NURSE ---
repeat ekg obtained, found to be in normal sinus rhythm
== END 2023-12-02 14:46 | disposition home or self-care (01) ==
PROVIDERS: Emergency Provider Emergency Medicine; PCP Family Medicine
DX: I48.20 Chronic atrial fibrillation, unspecified (principal); F41.9 Anxiety disorder, unspecified; R06.02 Shortness of breath; I10 Essential (primary) hypertension; J45.909 Unspecified asthma, uncomplicated; Z79.01 Long term (current) use of anticoagulants; Z79.899 Other long term (current) drug therapy; Z79.84 Long term (current) use of oral hypoglycemic drugs
CPT/HCPCS: 36415; 80048; 80076; 83735; 83880; 84484; 85025; 93005; 96361; 96374; 96376; 99285; J2060

== ENCOUNTER → 2023-12-02 08:48 | Outpatient (BNV) | payer OTHER, SELFPAY | PROVIDERS: Emergency Provider Emergency Medicine; PCP Family Medicine; Visit Provider Internal Medicine Cardiovascular Disease | DX: I48.91 Unspecified atrial fibrillation (principal) | CPT/HCPCS: 93010 ==

== ENCOUNTER → 2023-12-08 12:41 | Outpatient (REF) | payer OTHER, SELFPAY ==
--- NOTE | 2023-12-08 12:44 | HM_ITS ---
Conclusion: 1. Patient was monitored for total period of 3 days 2. Baseline was normal sinus rhythm with average heart of 91 beats per minute 3. No significant pauses noted and rare ectopy noted 4. Patient marked 1 event without reporting any symptoms correlating with sinus rhythm MTDD
== END ==
LOC: HO.CARD 12:41
PROVIDERS: Visit Provider Nurse Practitioner
DX: I48.91 Unspecified atrial fibrillation (principal)
CPT/HCPCS: 93242

== ENCOUNTER → 2023-12-08 12:44 | Outpatient (BNV) | payer OTHER, SELFPAY | PROVIDERS: Visit Provider Internal Medicine Cardiovascular Disease | DX: R00.0 Tachycardia, unspecified (principal) | CPT/HCPCS: 93244 ==

== ENCOUNTER 2023-12-22 13:40 | Outpatient (RCR) | payer OTHER, SELFPAY ==
--- NOTE | 2023-12-22 14:44 | MHC.PT.EP ---
[facility] [place] Office [place] Office [place] Office [address] Tina Morales [address] [phone] F: [phone] F: [phone] F: [phone] F: [phone] Physical Therapy Plan of Care Date of Evaluation: 12/22/23 Date of Surgery: n/a Diagnosis: strain of fascia and tendon at R shoulder Assessment: Patient is a 53 year old female presenting to PT with complaints of pain in her R shoulder. Pt reports onset of pain began about 4 months ago due to either when shooting a basketball at work or when pulling a weighted blanket at home. She presents today with impairments in pain, posture, ROM, shoulder strength, tenderness to palpation. 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 Clinical presentation today is most consistent with signs and sx associated with R shoulder pain and pt will benefit from skilled PT 2 week x 4 weeks to address the following problems and impairments noted upon evaluation: pain, posture, ROM, shoulder strength, tenderness to palpation. These problems limit the patient with the following functional activities: work, washing, dressing, sleeping, washing hair. The prescribed treatment plan of care is medically necessary. Co-morbidities of afib on eliquis were identified and taken into considerations of plan of care. Pt was educated on HEP, role of PT, prognosis, POC. Frequency and Duration: The patient will be seen 2 x week x 4 weeks Short Term Goals: Pt will demonstrate improved shoulder ROM to equal B in 2 weeks. Pt will demonstrate improved posture as evidence of min to no cues during sessions in 2 weeks. Pt will demonstrate improved shoulder pain by 1/3 grade in 2 weeks. Nursing Home Goals: Pt will demonstrate improved SPADI score by 13 points in 4 weeks for improved functional mobility. Pt will demonstrate ability to wash her hair with min to no pain in 4 weeks for improved tolerance to self care. Pt will demonstrate ability to work a full day with min to no pain in 4 weeks for return to PLOF. Treatment Plan: Modalities to reduce pain, spasms and effusion. Manual therapy to restore motion and function. Therapeutic exercise to improve strength and flexibility. Neuromuscular re-education for posture and balance. Therapeutic activities to return to functional activities of daily living. Electronically signed by: Charline Humphries PT, DPT, ATC Please sign and return to therapist. Thank you for your referral.
--- NOTE | 2024-01-31 08:12 | MHC.PT.DC ---
[facility] [place] [facility] [place] [facility] [place] [facility] [address] Tina Morales 140 [facility] [phone] F: [phone] F: [phone] F: [phone] F: [phone] Physical Therapy Discharge Report Diagnosis: strain of fascia and tendon at R shoulder Date of Surgery: n/a Date of Evaluation: 12/22/23 Date of Discharge: 01/31/24 Treatments to Date: 1 Cancellations to Date: 5 No Shows to Date: 0 Discharge Status: Discharge Summary: Pt has not returned to skilled PT in >30 days and therefore to be d/c. Electronically signed by: Charline Humphries, PT, DPT, ATC Please sign and return to therapist. Thank you for your referral.
== END 2024-01-31 08:12 | disposition home or self-care (01) ==
LOC: HO.PTCHIC 13:40
PROVIDERS: PCP Family Medicine; Visit Provider Nurse Practitioner Family
DX: S46.911D Strain of unspecified muscle, fascia and tendon at shoulder and upper arm level, right arm, subsequent encounter (principal)
CPT/HCPCS: 97110; 97161

== ENCOUNTER → 2024-01-02 07:19 | Outpatient (REF) | payer OTHER, SELFPAY ==
--- NOTE | ~2024-01-02 | NM_ITS ---
Myocardial perfusion study Indication: Atrial fibrillation to evaluate for myocardial ischemia Technique: The patient was brought in for a Lexiscan perfusion study on 01/02/2024. Patient performed low-level exercise and was injected 0.4 mg of Lexiscan intravenously. Within a minute of injection, 35 mCi of sestamibi was given intravenously. Images were obtained using the SPECT gamma camera interlaced with the gating device. Images were obtained in supine position. Resting perfusion study was performed on 01/03/2024. Patient was administered 35 mCi of sestamibi intravenously at rest. Images were then obtained in supine position. Images obtained with and without CT attenuation. Total DLP 181 mGy-cm. Images were processed with the software and compared side to side in short axis, horizontal long axis and vertical long axis views. Findings: The stress perfusion study showed non attenuated images show minimal thinning/reduced uptake in the inferior wall of the LV myocardium. Remainder of the LV myocardium is normally perfused. Attenuated corrected images show mildly reduced uptake in the apex of the LV myocardium. The gated study shows normal LV systolic function with calculated LVEF of 62%. LV cavity is normal in size. The gated study shows normal systolic wall thickening and contraction of segments. Resting study shows no change in perfusion compared to stress perfusion study. Gating at rest reveals normal systolic wall motion with ejection fraction at 65%. The findings are consistent with no clear reversible defect overall normal perfusion study. NM/NM cardiolite stress test Impression: 1. Myocardial perfusion imaging study shows normal myocardial perfusion 2. Gated LVEF is 62% 3. Transient ischemic dilatation not present EKG is nondiagnostic for ischemia
--- NOTE | 2024-01-02 07:23 | CA_ITS ---
Acquisition Time: 2024-01-02 09:08:46 Total Exercise Time: 00:02:18 Test Indications: AFIB Medications: Protocol: TELLY Max HR: 136 BPM 80% of Pred: 169 BPM Max BP: 220/084 mmHG Max Work Load: 4.6 METS Exercise stress test exercise 2 min 18 sec of Telly protocol achieving 78% MPHT, without chest pains, with mild to moderate SOB, test terminated due to HTN resposne 220/84, with isolated PVCs and PACs. Test changed to pharmacological stress test. Pharmacological stress test with Lexiscan injection while sitting and kicking her legs, without anginal symptoms, without arrhythmias, with normotensive response to injection, with nondiagnosiitic EKGs. Aminophylline 75mg IVP given to reverse Lexiscan. Nuclear images pending. Test reviewed with Dr. Kauffman Referred By: Radha Weeks Overread By: Radha Weeks
--- NOTE | 2024-01-02 07:23 | CA_ITS ---
Transthoracic Echocardiogram Patient (Last, First, Middle): Jolanta Machuca, Gender: Female Date of : 1970 Age: 53 Procedure Date: 01/02/2024 Procedure Type: Transthoracic Echocardiogram Location: OP Height: 175. cm Weight: 111.13 kg BSA: 2.25 m2 Heart Rate: 87 bpm BP: 165 / 100 mmHg Cad Developer: SILVANO Referring MD: Radha Weeks NP Symptoms: I48.91 - Unspecified atrial fibrillation Study Quality: Fair ECG Rhythm: Sinus Conclusions: - The left ventricular systolic function is normal. The calculated ejection fraction is 64% by biplane method. - Mild concentric left ventricular hypertrophy; at least moderate septal hypertrophy. - No obvious valvular pathology seen on this study. Findings Left Ventricle Normal left ventricular cavity size. The left ventricular systolic function is normal. The calculated ejection fraction is 64% by biplane method. There is no evidence of regional wall motion abnormalities. Diastolic function is normal for age. Mild concentric left ventricular hypertrophy; at least moderate septal hypertrophy. Right Ventricle Normal right ventricular cavity size and systolic function. Atria The left atrium is mildly dilated. The right atrium is normal in size. Aortic Valve There is a normal trileaflet aortic valve. There is no aortic valve stenosis. There is no aortic valve regurgitation. Mitral Valve There is mild mitral annular calcification. There is trace mitral valve regurgitation. There is no mitral valve stenosis. Pulmonic Valve The pulmonic valve is likely normal. Tricuspid Valve Normal tricuspid valve structure. There is trace tricuspid valve regurgitation. Tricuspid regurgitation envelope is inadequate for calculation of right ventricular systolic pressure. Great Vessels There is mild dilatation of the ascending aorta measuring 3.90 cm. Small plaque is seen in the sino tubular ridge. Venous The inferior vena cava is normal in size and collapses greater than 50% with inspiration. Pericardium/Pleural There is no evidence of pericardial effusion. Prior Study Comparison No prior study available for comparison. Recommendations, Care & Conclusions No obvious valvular pathology seen on this study. Measurements 2D Linear Measurements IVSd: 1.84 0.6-0.9/0.6-1.0 cm LVIDd: 3.84 3.9-5.3/4.2-5.9 cm LVIDd Index: 1.71 2.4-3.2/2.2-3.1 cm/m2 LVIDs: 2.83 2.0-3.6 cm LVPWd: 1.29 0.7-1.1 cm LA Diam: 4.90 2.7-3.8/3.0-4.0 cm LAIDs Index: 2.18 1.5-2.3 cm/m2 LV Mass: 293.27 67-162/88-224 g LV Mass Index: 130.34 43-95/49-115 g/m2 LVOT Diam: 2.10 3.0+(-)1.3 cm 2D Systolic Function EF 4C: 61.10 >55% EF 2C: 69.70 >55% EF BiP: 64.10 >55% Mitral Valve MV Pk E: 0.81 MV PK A: 1.00 MV Decel Time: 231.00 E/A: 0.80 E'Lateral: 7.94 E'Medial: 4.90 E/E' Med: 16.50 E/E' Lat: 10.20 PHT: 68.00 MVA PHT: 3.24 Decel [place]: 3.50 Aortic Valve AoV Pk Yovani: 1.54 AoV Mn Yovani: 1.09 AoV VTI: 0.32 AoV Pk Grad: 9.00 Aov Mn Grad: 5.00 BALDEMAR Cont.VTI: 2.67 LVOT LVOT Pk Yovani: 1.23 LVOT Mn Yovani: 0.84 LVOT VTI: 0.25 LVOT Pk Grad: 6.00 LVOT Mn Grad: 3.00 LVOT Diam: 2.10 LVOT Area: 3.46 Diastolic Function MV Pk E: 0.81 MV Pk A: 1.00 E/A: 0.80 E'Medial: 4.90 E/E' Med: 16.50 E' Laterial: 7.94 E/E' Lat: 10.20 Right Ventricle TAPSE (mm): 29.60 TVS' Yovani: 12.90 Tricuspid Valve RA Press: 3.00 Great Vessels Aorta Sinus of Valsalva: 3.10 2.0-3.5 cm Ao Asc: 3.90 2.1-3.4 cm Pulmonary Valve PV Pk Yovani: 1.37 Peak PV Grad: 8.00 Updated in Other Vendor System with Status of Final Pablito Kauffman MD electronically signed on 01/02/2024 10:45:41 AM with status of Final
== END ==
LOC: HO.CARD 07:19
PROVIDERS: PCP Family Medicine; Visit Provider Nurse Practitioner
DX: I48.91 Unspecified atrial fibrillation (principal)
CPT/HCPCS: 78452; 93017; 93306; A9500; J0280; J2785

== ENCOUNTER → 2024-01-02 07:23 | Outpatient (BNV) | payer SELFPAY | PROVIDERS: PCP Family Medicine; Visit Provider Internal Medicine | DX: I48.91 Unspecified atrial fibrillation (principal) | CPT/HCPCS: 78452; 93016; 93018; 93350 ==

== ENCOUNTER → 2024-01-19 08:12 | Outpatient (REF) | payer OTHER, SELFPAY | LOC: HO.SL 08:12 | PROVIDERS: PCP Family Medicine; Visit Provider Nurse Practitioner | DX: G47.10 Hypersomnia, unspecified (principal); R06.83 Snoring | CPT/HCPCS: 95806 ==

== ENCOUNTER → 2024-01-19 08:34 | Outpatient (BNV) | payer OTHER, SELFPAY | PROVIDERS: PCP Family Medicine; Visit Provider Internal Medicine | DX: R06.83 Snoring (principal); R40.0 Somnolence | CPT/HCPCS: 95806 ==

== ENCOUNTER 2024-02-01 09:36 | Outpatient (AMB) | payer OTHER, SELFPAY ==
--- NOTE | 2024-02-01 09:57 | MHC.PC.OV ---
Vital Signs 02/01/24 10:03 02/01/24 12:00 Height 5 ft 9 in Weight 252 lb BMI 37.2 BP 134/76 Blood Pressure Location Rt brachial Position Sitting Respiration 15 Pulse 114 H 98 Pulse Source Pulse Oximeter Auscultation Pulse Oximetry (%) 98 Oxygen Delivery Method Room Air Intake Visit Reasons: securities supervisor Intake Note: new patient to establish care and patient complaining of right shoulder pain x 6 months getting worse with time. Allergies steroids Adverse Reaction (Mild, Uncoded 02/01/24 10:19) Unknown ssri Adverse Reaction (Uncoded 02/01/24 10:19) hypertension Medication List - Last Reconciled 02/01/24 by Zaira Au, ORNAMENTAL MACHINE OPERATOR- acetaminophen 1,000 mg (2 x 500 mg) PO Q6H PRN albuterol sulfate 90 mcg/actuation (Ventolin HFA) 2 inhalations inhalation Q4H PRN alprazolam (Xanax) 1 mg PO TID PRN apixaban (Eliquis) 5 mg PO BID blood-glucose meter As directed diltiazem HCl CD 240 mg PO Q12H 90 days lisinopril 40 mg PO DAILY metformin ER 500 mg PO DAILY@1700 quetiapine 25 - 50 mg PO BEDTIME Tobacco use date assessed: 02/01/24 Dental Screening Dental Screen Date: 02/01/24 Did you have a dental visit in the last 12 months?: Yes Did you have a dental problem in the last 6 months where you did not have access to dental care?: No Was dental information given to patient?: Patient has dentist HPI HPI Comments History of Present Illness Details 54-year-old female with asthma, AFib, hypertension, prediabetes, generalized anxiety disorder, MDD, CAD, dilation of ascending aorta, left renal cysts [ct of abd/pelvis 12/23/22], mesenteric adenitis, obesity s/p cholecystectomy Socials: 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 Colon ? Mammo ? DEXA ? PAP ? Tdap Sleep study 01/26/24 Echo 12/2023 EF 64%, mild concentric LVH, moderate septal hypertrophy, mild dilation of ascending aorta 3.9 cm, small plaque in sino tubular ridge Specialists: Cardiology Next appt 02/07/24 Sleep medicine Psych and counselro Here today to est care. She complains of right shoulder pain. playing basketball 6 moths ago, felt pull and tear felt like it would heal itself as time went on, unable to move arm went to urgent care at that time; reports xray done and this was negative advised of need for MRI Has limited ROM in all directions Using apap for pain tried muscle relaxer w/o relief does not feel muscular She is R hand dominant She also has Afib which is being managed by Cards. Had recent ED visit for Afib with RVR. Med changes with + effect. Cont to have some tachycardia but no chest pain or syncope. on FMLA for Afib Active w/ [facility] counselor and prescriber + MDD and JACQUELINE in the setting of recent health events. Exam: Awake alert NAD Tachycardic, regular rhythm LS clear but dim throughout Limited ROM R shoulder all directions, decreased strength. Vascularly intact. Tearful when talking about health, pleasant and cooperative Plan: Refer to orthopedics for evaluation of her right shoulder. Discuss the positive social determinant of health screening. Offered and declined nurse navigation assistance. Let her know if she changes her mind she can let us know. Continue all medications as directed Continue follow up with care team Return to the office in about 2 weeks for close interim follow up, sooner as needed This note is constructed using voice recognition software. While every effort has been made to ensure accuracy in printing equipment mechanic apprentice, still errors may have been included Sometimes, these errors may affect the content or meaning of the given sentence . Total time spent caring for the patient today was 45 minutes. This includes time spent before the visit reviewing the chart, time spent during the visit, and time spent after the visit on documentation [facility] Medical History (Updated 02/01/24 @ 15:12 by Zaira Au, [facility]) Mesenteric adenitis Neuropathy Depression Pre-diabetes Asthma Afib Anxiety Surgical History (Updated 02/01/24 @ 10:11 by Galo Sanchez MA) Previous section Family History (Updated 02/01/24 @ 10:14 by Galo Sanchez MA) Mother Cardiac arrest Diabetes Asthma Hypertension Cardiovascular disease Father Smoker CKD (chronic kidney disease) Hypertension Sister Mental health disorder Substance abuse Social History (Updated 02/01/24 @ 10:03 by Galo Sanchez MA) Household Members: Children Both parents involved: No Caregiver staying overnight: No Housing: Apartment Are you a primary primary health care nurse to a significant other at home: Yes (autistic son) Do you presently have visiting nurse or other home services: No 75 years or older and lives alone: No Alcohol intake: never Patient Tobacco Use Status: Never used Tobacco e-Cigarette/Vaping Use: Never Used service: No Current occupational status: employed Current occupation: mental health counselor Cognitive needs: Yes Hearing needs: No Vision needs: Yes (wear glasses) Questionnaire PHQ-9 Over the last 2 weeks, how often have you been bothered by any of the following problems? 1. Little interest or pleasure in doing things: nearly every day 2. Feeling down, depressed, or hopeless: nearly every day 3. Trouble falling or staying asleep, or sleeping too much: nearly every day 4. Feeling tired or having little energy: nearly every day 5. Poor appetite or overeating: nearly every day 6. Feeling bad about yourself - or that you are a failure or have let yourself or your family down: more than half the days 7. Trouble concentrating on things, such as reading the newspaper or watching television: more than half the days 8. Moving or speaking so slowly that other people could have noticed. Or the opposite - being so fidgety or restless that you have been moving around a lot more than usual: more than half the days 9. Thoughts that you would be better off or of hurting yourself in some way: several days Total score: 22 Depression Screening Interpretation: Positive Depression Screening Follow-up: Existing condition and In treatment Depression Screening Done: Yes 15155 - PHQ-9 Billing: Yes Source: Developed by Drs. Scar Finley, Joseline Jon, Benito Rocha and colleagues, with an educational logan from [employer]. Thrive Questionnaire Date Thrive assessed: 02/01/24 I am a: Patient What is your living situation today?: I have a steady place to live Within the past 12 months, did the food you bought not last and you didn't have the money to get more?: Sometimes True Within the past 12 months, did you worry whether your food would run out before you got money to buy more?: Sometimes True Do you have trouble paying for medicines?: Yes Do you have trouble getting transportation to medical appointments?: No Do you have trouble paying your heating and electricity bill?: No Do you have trouble taking care of your child, family member or friend?: No Do you have trouble with day-to-day activities such as bathing, preparing meals, shopping, managing finances, etc.?: Yes Are you currently unemployed and looking for a job?: No Are you interested in more education?: No Please select the resources that you would like help with: Food, Paying for medicine and Utilities THRIVE Score: 2 AUDIT C Alcohol Use Questionnaire (AUDIT-C) 1. How often do you have a drink containing alcohol?: Never 2. How many drinks containing alcohol do you have on a typical day when you are drinking?: 1 or 2 3. How often do you have six or more drinks on one occasion?: Never Total Score: 0 Score Reviewed/Action Taken: Yes JACQUELINE-7 AMB Questionnaire JACQUELINE-7 Date JACQUELINE - 7 assessed: 02/01/24 Feeling nervous, anxious, or on edge: 3 = Nearly every day Not being able to stop or control worryin = Nearly every day Worrying too much about different things: 3 = Nearly every day Trouble relaxin = Nearly every day Being so restless that it is hard to sit still: 3 = Nearly every day Becoming easily annoyed or irritable: 2 = More than half the days Feeling afraid as if something awful might happen: 3 = Nearly every day Total JACQUELINE-7 score (0-4 normal; 5-9 mild; 10-14 moderate; 15-21 severe): 20 Source: Developed by Drs. Scar Finley, Joseline Jon, Benito Rocha and colleagues, with an educational logan from [employer]. JACQUELINE-7 Assessment Billing JACQUELINE-7 Assessment Tool: JACQUELINE-7 Assessment 59221 ACT Questionnaire In the past 4 weeks, how much of the time did your asthma keep you from getting as much done at work, school or at home?: All of the time During the past 4 weeks, how often have you had shortness of breath?: Not at all During the past 4 weeks, how often did your asthma symptoms wake you up at night or earlier than usual in the morning?: Not at all During the past 4 weeks, how often have you had to use your rescue inhaler or nebulizer medication?: Not at all How would you rate your asthma control during the past 4 weeks?: Well controlled ACT Interpretation: Negative Score: 20 Physical exam (Primary Care) Vital Signs: Last Vital Signs Pulse 98 02/01/24 12:00 Resp 15 02/01/24 10:03 BP 134/76 02/01/24 10:03 Pulse Ox 98 02/01/24 10:03 Oxygen Delivery Method Room Air 02/01/24 10:03 BMI result Body Mass Index 37.2 BMI Assessment/Plan discussion: High BMI High, discussed plan: lifestyle Tobacco/Smoking Status: Tobacco use Status Tobacco use date assessed 02/01/24 02/01/24 10:08 Patient Tobacco Use Status Never used Tobacco 02/01/24 10:08 e-Cigarette/Vaping Use Never Used 02/01/24 10:08 PHQ-9: PHQ-9 Score PHQ-9: Total score 22 02/01/24 10:30 Depression Screening Interpretation: Positive Depression Screening Follow-up: Existing condition and In treatment Thrive Assessment: Date of Thrive Assessment Date Thrive assessed 02/01/24 02/01/24 10:08 Results Reviewed Results Reviewed: [facility] [place] [address] XRay Report Signed Patient: Jolanta Machuca MR#: [id number] : 1970 Acct:[id number] Age/Sex: 53 / F ADM Date: 11/25/23 Loc: HO.HMGCX Attending Dr: Tiffany Rosa NP Ordering Physician: Tiffany Rosa NP Date of Service: 11/25/23 Procedure(s): XR shoulder RT min 2V Accession Number(s): [id number] cc: Tiffany Rosa NP~ EXAMINATION: XR SHOULDER, RIGHT CLINICAL INFORMATION: Right shoulder pain since 2 months COMPARISON: None available. TECHNIQUE: AP external rotation, Grashey and scapular Y of the right shoulder. FINDINGS: No acute fracture or dislocation. The glenohumeral and acromioclavicular alignment is anatomic. Mild degenerative changes involving the right acromioclavicular joint. Glenohumeral joint space is maintained. No abnormal soft tissue calcifications. No acute soft tissue abnormality. XR/XR shoulder RT min 2V IMPRESSION: No acute fracture or dislocation. Mild degenerative changes involving the right acromioclavicular joint. Dictated By: Leo Valero Signed By: <Electronically signed by Leo Valero in OV> 11/25/23 1422 DD/ 1131 Assessment and Plan Assessment & Plan (1) Right shoulder injury: Code(s): S49.91XA - Unspecified injury of right shoulder and upper arm, initial encounter Qualifiers: Encounter type: initial encounter Qualified Code(s): S49.91XA - Unspecified injury of right shoulder and upper arm, initial encounter (2) Hypertension: Code(s): I10 - Essential (primary) hypertension Qualifiers: Hypertension type: primary hypertension Qualified Code(s): I10 - Essential (primary) hypertension (3) Afib: Code(s): I48.91 - Unspecified atrial fibrillation Qualifiers: Atrial fibrillation type: paroxysmal Qualified Code(s): I48.0 - Paroxysmal atrial fibrillation (4) Secondary hypercoagulability disorder: Comment: due to Afib on Eliquis Code(s): D68.69 - Other thrombophilia (5) MDD (major depressive disorder), recurrent episode: Code(s): F33.9 - Major depressive disorder, recurrent, unspecified Qualifiers: Major depression episode severity: moderate Qualified Code(s): F33.1 - Major depressive disorder, recurrent, moderate (6) JACQUELINE (generalized anxiety disorder): Code(s): F41.1 - Generalized anxiety disorder (7) Asthma: Code(s): J45.909 - Unspecified asthma, uncomplicated Qualifiers: Asthma severity: mild Asthma persistence: intermittent Asthma complication type: uncomplicated Qualified Code(s): J45.20 - Mild intermittent asthma, uncomplicated (8) Class 2 obesity with alveolar hypoventilation and body mass index (BMI) of 37.0 to 37.9 in adult: Code(s): E66.2 - Morbid (severe) obesity with alveolar hypoventilation; Z68.37 - Body mass index [BMI] 37.0-37.9, adult Qualifiers: Serious obesity comorbidity presence: with serious comorbidity Qualified Code(s): E66.2 - Morbid (severe) obesity with alveolar hypoventilation; Z68.37 - Body mass index [BMI] 37.0-37.9, adult (9) CAD (coronary artery disease): Code(s): I25.10 - Atherosclerotic heart disease of [place] coronary artery without angina pectoris Qualifiers: Coronary Disease-Associated Artery/Lesion type: [place] artery [place] vs. transplanted heart: [place] heart Associated angina: without angina Qualified Code(s): I25.10 - Atherosclerotic heart disease of [place] coronary artery without angina pectoris (10) Mild dilation of ascending aorta: Code(s): I77.810 - Thoracic aortic ectasia (11) Pre-diabetes: Code(s): R73.03 - Prediabetes (12) Encounter for screening involving social determinants of health (SDoH): Code(s): Z13.9 - Encounter for screening, unspecified Orders: Orders Complete Blood Count no Diff Today D68.69 - Other thrombophilia, I10 - Essential (primary) hypertension, I48.91 - Unspecified atrial fibrillation Hemoglobin A1c Today D68.69 - Other thrombophilia, I10 - Essential (primary) hypertension, I48.91 - Unspecified atrial fibrillation Microalbumin, Random (w Creat) Today D68.69 - Other thrombophilia, I10 - Essential (primary) hypertension, I48.91 - Unspecified atrial fibrillation Vitamin B12 and Folate Today D68.69 - Other thrombophilia, I10 - Essential (primary) hypertension, I48.91 - Unspecified atrial fibrillation Vitamin D 25-OH Total Today D68.69 - Other thrombophilia, I10 - Essential (primary) hypertension, I48.91 - Unspecified atrial fibrillation Comprehensive [place]. Panel Fast Today D68.69 - Other thrombophilia, I10 - Essential (primary) hypertension, I48.91 - Unspecified atrial fibrillation IRON PROFILE Today D68.69 - Other thrombophilia, I10 - Essential (primary) hypertension, I48.91 - Unspecified atrial fibrillation Lipid Panel Today D68.69 - Other thrombophilia, I10 - Essential (primary) hypertension, I48.91 - Unspecified atrial fibrillation TSH reflex Free T4 Today D68.69 - Other thrombophilia, I10 - Essential (primary) hypertension, I48.91 - Unspecified atrial fibrillation Referrals Orthopedics Referral S49.91XA - Unspecified injury of right shoulder and upper arm, initial encounter Patient Instructions: Walk-In Care (Urgent Care): We Make it Easy Walk-in for urgent medical issues such as: ? Seasonal Allergies ? Insect Bites ? Cough ? Diarrhea ? Acute Asthma Attacks ? Back, Knee or Joint Pain ? Ear Infection ? Fever without a Rash ? Headaches ? Nausea ? [place], Rash or Skin Irritation ? Sore Throat ? Sports Physicals ? Vomiting Most insurances are accepted. Patients do not need to be part of the [facility] to seek care at the walk-in clinic. Locations [facility] [place] [address] ? [phone] [facility] Care in [place] provides services to ages 18 and over. Open Tuesday-Tuesday: 8 a.m. to 5 p.m. and Tuesday: 9 a.m. to 3 p.m.* *Hours may vary due to staffing availability. To confirm Walk-In Care hours in [place], please call [phone]. [address] [place] [address] ? [phone] [facility] in [place] provides services to ages 12 and over. Open Tuesday-Tuesday: 8 a.m. to 5 p.m. Hours may vary due to staffing availability. To confirm Walk-In Care hours in [place], please call [phone]. LABORATORY SERVICES: [facility] Lab ? Primary Location [address] [place] [address] Tuesday through Tuesday 6:00 AM ? 5:00 PM Tuesday 7:00 AM ? 11:00 AM* [phone] The [facility] Lab is centrally located near the front entrance of the [facility] for easy outpatient access. Convenient parking is provided for outpatients. *Hours may vary due to staffing availability. To confirm Laboratory hours for any location, please call [phone]. Offsite Location For your convenience, we offer offsite laboratory draw stations at the following locations: [address] [place] [address] ? [facility] [address], [address] Tuesday through Tuesday 7:30 AM ? 1:00 PM* [phone] *Hours may vary due to staffing availability. To confirm Laboratory hours for any location, please call [phone]. [place] ? Danna [address] [place] Tuesday through Tuesday 6:00 AM ? 3:30 PM* Tuesday 6:30 AM ? 3 PM* [phone] *Hours may vary due to staffing availability. To confirm Laboratory hours for any location, please call [phone]. [address] [facility] Tuesday through Tuesday 7:30 AM ? 4:00 PM* [phone] *Hours may vary due to staffing availability. To confirm Laboratory hours for any location, please call [phone]. [address] [facility] Tuesday through 9:00 AM ? 4:00 PM* *Hours may vary due to staffing availability. To confirm Laboratory hours for any location, please call [phone]. Appointments are not necessary. Walk-ins are welcome. Like all the departments throughout the [facility], our Lab undergoes frequent reviews to ensure the quality and accuracy of test results, and our staff takes special pride in its status as a nationally accredited facility. Patient Portal: ONE PATIENT. ONE RECORD. BETTER CARE. [facility] has a fully integrated, cutting-edge mobile electronic health information system that has revolutionized the way we care for our patients and manage our organization. This system improves communication and coordination enabling us to provide safe, higher-quality care, and an overall positive experience for staff and patients. Our first priority, as always, is to deliver the highest quality care possible. The system is running in the background supporting that priority. This portal is for all [facility] services and practices. If you are experiencing any technical difficulties with enrolling or logging into the Patient Portal please complete the [facility] Patient Portal Technical Support Form. [facility] now offers a new secure on-line interactive tool for patients to review their health information ? ?Patient Portal. This interactive web portal will enable patients and their families to take an active role in their care by providing easy, secure access to their health information via the internet. The Patient Portal provides patients with instant access to their health information, including laboratory results, medications, allergies, demographic information, visit history, and more. In addition to managing their own care, parents and health care proxies with authorized consent will appreciate the ability to access the records of those individuals for whom they provide care. Please note: if you wish to gain access (Proxy) to another patient?s portal, you will be required to come to the Medical Records Department in person at [facility]. Both the patient giving proxy access and the proxy will need to provide photo identification and complete the appropriate authorization. The Patient Portal also allows track their appointments online. The [facility] Patient Portal also saves patients time by allowing them to submit updates to their demographic and contact information prior to their visits. Portal email notifications will also alert patients to any new activity on their portal, such as test results and new appointments. In order to initially enroll in the [facility] Patient Portal, you will need to enter some required information including the following: your [facility] Medical Record number your personal home email address name date of Please note: In order to enroll in the [facility] Patient Portal, we need to have your email address on file in your electronic medical record. ?The email address needs to be specific for one person (yourself) in order for your Portal enrollment to be successful. ?You can update your email address in person with our Registration staff when you are registering for a hospital visit. ?Otherwise, you will need to come to the Health Information Management (Medical Records) Department at [facility]. ?We are open from Tuesday ? Tuesday from 7:30 a.m. ? 4:30 p.m. ?You will be required to present a photo id. Once you have successfully enrolled in the Patient Portal, you will receive a one-time user id and password for the Portal, sent to your email address. ?This will allow you to log into the Patient Portal within 99 hrs and reset your own logon id and password, and define personal security questions. ?Once your permanent login and password have been set, you can log into the [facility] Patient Portal at any time via the blue button above or from the Portal Logon button on any page of the [facility] website. [facility] encourage all of our patients to enroll in Patient Portal as it presents a valuable opportunity for patients and their families to actively participate in their care and stay healthy Welcome to [facility]. ?We look forward to working with you. Coding Level of Care Code New Pt Level 4 (34423) Diagnoses Injury of right shoulder, initial encounter S49.91XA Encounter type: initial encounter Primary hypertension I10 Hypertension type: primary hypertension Paroxysmal atrial fibrillation I48.0 Atrial fibrillation type: paroxysmal Secondary hypercoagulability disorder D68.69 Moderate episode of recurrent major depressive disorder F33.1 Major depression episode severity: moderate JACQUELINE (generalized anxiety disorder) F41.1 Mild intermittent asthma without complication J45.20 Asthma severity: mild Asthma persistence: intermittent Asthma complication type: uncomplicated Class 2 obesity with alveolar hypoventilation, serious comorbidity, and body mass index (BMI) of 37.0 to 37.9 in adult E66.2; Z68.37 Serious obesity comorbidity presence: with serious comorbidity Coronary artery disease involving [place] coronary artery of [place] heart without angina pectoris I25.10 Coronary Disease-Associated Artery/Lesion type: [place] artery [place] vs. transplanted heart: [place] heart Associated angina: without angina Mild dilation of ascending aorta I77.810 Pre-diabetes R73.03 Encounter for screening involving social determinants of health (SDoH) Z13.9 Additional Codes JACQUELINE-7 Assessment Billing - JACQUELINE-7 Assessment Tool: JACQUELINE-7 Assessment [id number] ([id number])
[2024-02-01 10:03] VITALS: BP 134/76; PULSE 114; RESP 15; O2SAT 98; BMI 37.2
[2024-02-01 12:00] VITALS: PULSE 98
== END 2024-02-01 10:35 | disposition home or self-care (01) ==
PROVIDERS: PCP Family Medicine; Visit Provider Nurse Practitioner Family
DX: S49.91XA Unspecified injury of right shoulder and upper arm, initial encounter (principal); I10 Essential (primary) hypertension; I48.0 Paroxysmal atrial fibrillation; E66.2 Morbid (severe) obesity with alveolar hypoventilation; J45.20 Mild intermittent asthma, uncomplicated; Z68.37 Body mass index [BMI] 37.0-37.9, adult
CPT/HCPCS: 99204

== ENCOUNTER 2024-02-07 13:12 | Outpatient (AMB) | payer OTHER, SELFPAY ==
[2024-02-07 13:15] VITALS: BP 136/84; PULSE 124; BMI 36.8
--- NOTE | 2024-02-07 13:15 | A.OFFVIS_ITS ---
Vital Signs 02/07/24 13:15 Height 5 ft 9 in Weight 249 lb 1.957 oz BMI 36.8 BP 136/84 Blood Pressure Location Lt brachial Position Sitting Pulse 124 H Intake Visit Reasons: f/up echo/ sleep/ ranjit / 30 day / AC Intake Note: Follow-up after echo, sleep, ALLEN and ranjit mibi c/o heart racing, fatigue Accountant Budget Required: No Allergies steroids Adverse Reaction (Mild, Uncoded 02/01/24 10:19) Unknown ssri Adverse Reaction (Uncoded 02/01/24 10:19) hypertension Medication List - Last Reconciled 02/07/24 by Reji Verma MD acetaminophen 1,000 mg (2 x 500 mg) PO Q6H PRN albuterol sulfate 90 mcg/actuation (Ventolin HFA) 2 inhalations inhalation Q4H PRN alprazolam (Xanax) 1 mg PO TID PRN apixaban (Eliquis) 5 mg PO BID blood-glucose meter As directed diltiazem HCl CD 240 mg PO Q12H 90 days lisinopril 40 mg PO DAILY metformin ER 500 mg PO DAILY@1700 quetiapine 25 - 50 mg PO BEDTIME HPI Comments Details: Jolanta comes for follow-up after recent office visit for paroxysmal atrial fibrillation as well as workup. She underwent a myocardial perfusion imaging was vaso dilator myocardial perfusion imaging which was within normal limits. Echo showed normal LV ejection fraction with mild LVH with mild left atrial enlargement without major valvular abnormality. Holter monitor showed no episodes of atrial fibrillation. She continues to be remaining very anxious about overall heart situation especially given that she is not having atrial fibrillation episode. She had another bout of atrial fibrillation about few weeks ago and ended up going to [facility]. She said she was ready to get cardioverted but then converted by herself. They increase Cardizem to 240 mg daily here at [facility], [place] and she says since then fluttering symptoms have improved significantly but she continues to have very elevated heart rate at rest with sinus tachycardia. She says that she has very overall anxious and has significant traumatic memories of her mother's sudden cardiac in front of her eyes. She also has strong family history of coronary artery disease in her dad. She says she has less stress not working but feels more happy when she is at work. She is currently on FMLA leave [facility] Medical History Paroxysmal atrial fibrillation Mesenteric adenitis Neuropathy Depression Pre-diabetes Asthma Afib Anxiety Surgical History Previous section Family History Mother Cardiac arrest Diabetes Asthma Hypertension Cardiovascular disease Father Smoker CKD (chronic kidney disease) Hypertension Sister Mental health disorder Substance abuse Social History Household Members: Children Both parents involved: No Caregiver staying overnight: No Housing: Apartment Are you a primary care associate to a significant other at home: Yes (autistic son) Do you presently have visiting nurse or other home services: No 75 years or older and lives alone: No Alcohol intake: never Patient Tobacco Use Status: Never used Tobacco e-Cigarette/Vaping Use: Never Used service: No Current occupational status: employed Current occupation: mental health counselor Cognitive needs: Yes Hearing needs: No Vision needs: Yes (wear glasses) Review of Systems Const Denies chills, Denies fatigue, Denies fever(s), Denies frequent falls, Denies weakness, Denies weight gain and Denies weight loss ENT Denies dizziness Card Denies chest pain, Denies leg edema, Denies lightheadedness, Denies palpitations, Denies dyspnea, Denies dyspnea on exertion, Denies orthopnea and Denies other (loss of consciousness) Resp Denies cough, Denies dyspnea and Denies dyspnea on exertion GI Denies hematochezia and Denies change in stool character Musc Denies abnormal gait, Denies muscle weakness, Denies numbness, Denies radiating pain into limb and Denies tingling Neuro Denies abnormal gait, Denies dizziness, Denies frequent falls, Denies numbness, Denies tingling and Denies weakness Endo Denies fatigue and Denies palpitations Physical Exam Vital Signs: Last Vital Signs Pulse 124 H 02/07/24 13:15 BP 136/84 02/07/24 13:15 BMI result Body Mass Index 36.8 Const General: cooperative, comfortable and anxious Nutritional Appearance: obese Orientation/consciousness: patient oriented x3 Neck Neck: Yes trachea midline, Yes supple and Yes no JVD Resp Effort & Inspection: normal respiratory effort Auscultation: clear to auscultation bilaterally Cardio Jugular venous distension: no JVD Rate: tachycardic Rhythm: regular rhythm Heart sounds: S1 normal heart sound present, S2 normal heart sound present, no click, no gallops, no murmurs and no rubs GI Auscultation: normal bowel sounds Skin General skin exam: no rashes or lesions noted Neuro General: patient oriented x3 and no focal motor deficits Extrem General: Yes no clubbing, cyanosis or edema Office Procedures EKG Details: EKG shows sinus tachycardia with nonspecific ST T wave changes [id number], Complete Assessment & Plan Assessment & Plan (1) Paroxysmal atrial fibrillation: Code(s): I48.0 - Paroxysmal atrial fibrillation Category: Medical Plan: Paroxysmal atrial fibrillation with significant symptoms and had recurrent bouts since her presentation October here. Her Cardizem was increased to 240 mg daily and her symptoms of fluttering in her chest have improved although she remains at very elevated heart rate at rest which seems to be driven by her anxiety. However will ruled out again hyperthyroidism as well as check for plasma metanephrine levels. If these are within normal limits I think she would benef it from additional Inderal therapy to calm adrenergic response. I have strongly encouraged her to participate in stress mitigation strategies. Consider pharmacologic therapy for her general anxiety disorder. We had discussed in details about various treatment options for atrial fibrillation including antiarrhythmic drug therapy and/or ablation. Avoidance of stimulants was discussed which she is doing. Continue aggressive risk factor modification. With workup for sleep apnea given her body habitus and recurrent episodes of atrial fibrillation. Blood pressure is currently well optimized. Prediabetes/diabetes under your care. Given her strong concern for underlying cardiovascular disease and her strong family history would suggest a coronary calcium score to further assessment of significant coronary artery disease and guide therapy. Will follow up in the clinic in 6 weeks time, sooner p.r.n.. Thank you for allowing me to partake in her care Orders: Orders TSH reflex Free T4 Today I48.0 - Paroxysmal atrial fibrillation Metanephrines, Plasma Today I48.0 - Paroxysmal atrial fibrillation CT Coronary Calcium Score 1 Week I48.0 - Paroxysmal atrial fibrillation RT home sleep study Today I48.0 - Paroxysmal atrial fibrillation, R06.81 - Apnea, not elsewhere classified Medications: New propranolol ER (Inderal LA) 80 mg PO DAILY 30 caps 5RF I48.0 - Paroxysmal atrial fibrillation Coding Level of Care Code Est Pt Level 4 (62105) Diagnoses Paroxysmal atrial fibrillation I48.0 CPT Codes EKG - CPT: 63617-[id number], Complete ([id number])
== END 2024-02-07 13:51 | disposition home or self-care (01) ==
PROVIDERS: Visit Provider Internal Medicine Cardiovascular Disease
DX: I48.0 Paroxysmal atrial fibrillation (principal)
CPT/HCPCS: 93010; 99214

== ENCOUNTER 2024-02-07 13:12 | Outpatient (REF) | payer OTHER, SELFPAY ==
[2024-02-07 14:42] LABS: Hematocrit 38.2 % (37.0-47.0); Hemoglobin 12.3 g/dl (12.0-16.0); Mean Corpuscular HGB Conc 32.2 g/dl (31.0-35.0); Mean Corpuscular Hemoglobin 26.9 pg (27.0-33.0); Mean Corpuscular Volume 83.6 fL (80.0-98.0); Mean Platelet Volume 8.5 fL (9.4-12.3); Platelet Count 311 X10*3/uL (160-400); Red Blood Count 4.57 X10*6/uL (4.20-5.50); Red Cell Distribution Width 14.1 % (11.0-16.0); White Blood Count 8.4 X10*3/uL (4.8-10.8)
[2024-02-07 14:54] LABS: Estimated Average Glucose 143 mg/dL; Hemoglobin A1c % 6.6 % (<6.0)
[2024-02-07 15:05] LABS: Alanine Aminotransferase 25 U/L (0-31); Albumin Level 4.1 g/dL (3.5-5.0); Alkaline Phosphatase 68 U/L (39-117); Anion Gap 13 (12-20); Aspartate Amino Transferase 19 U/L (5-31); Bilirubin Total 0.4 mg/dL (0.0-1.0); Blood Urea Nitrogen 12 mg/dL (9-16); Calcium 9.9 mg/dL (8.4-10.2); Carbon Dioxide 24 mmol/L (22-29); Chloride 104 mmol/L (96-108); Cholesterol 257 mg/dL (<200); Estimated Glomerular Filt Rate > 60; Glucose Fasting 167 mg/dL (60-99); HDL Cholesterol 55 mg/dL (>40); Iron 45 mcg/dL (30-160); LDL Cholesterol Calculated 167 mg/dL (<100); Percent Iron Saturation 14 % (15-50); Potassium 3.7 mmol/L (3.3-5.1); Sodium 137 mmol/L (135-145); Total Iron Binding Capacity 318 mcg/dL (228-428); Total Protein 8.1 g/dL (6.5-8.0); Triglycerides 179 mg/dL (<150); Unsaturated Iron Binding 273 ug/dL
[2024-02-07 15:16] LABS: TSH reflex Free T4 1.94 uIU/mL (0.32-4.0); Vitamin D 25-OH Total 19.1 ng/mL (>30)
[2024-02-07 15:28] LABS: Vitamin B12 497 pg/mL (200-900)
[2024-02-07 15:56] LABS: Creatinine Urine 76.78 mg/dL; Microalbum/Creatinine Ratio Ur 33.8 ug/mg cr (<30)
[2024-02-13 06:29] LABS: Metanephrine, Free <25 pg/mL (<=57); Normetanephrines, Free 99 pg/mL (<=148); Total Metanephrine, Free 99 pg/mL (<=205)
== END 2024-02-07 13:13 | disposition home or self-care (01) ==
LOC: HO.LAB 13:12
PROVIDERS: PCP Nurse Practitioner Family; Visit Provider Internal Medicine Cardiovascular Disease
DX: I10 Essential (primary) hypertension (principal); I48.91 Unspecified atrial fibrillation; D68.69 Other thrombophilia; I48.0 Paroxysmal atrial fibrillation; Z13.1 Encounter for screening for diabetes mellitus
CPT/HCPCS: 36415; 80053; 80061; 82043; 82306; 82570; 82607; 82746; 83036; 83540; 83835; 84443; 85027; 93005

== ENCOUNTER 2024-02-13 09:30 | Outpatient (REF) | payer OTHER, SELFPAY ==
--- NOTE | ~2024-02-13 | XR_ITS ---
EXAMINATION: XR SHOULDER, RIGHT CLINICAL INFORMATION: M25.511 - Pain in right shoulder COMPARISON: None available. TECHNIQUE: AP external rotation, Grashey, scapular Y, and axillary views of the right shoulder. FINDINGS: No fracture, dislocation, or focal bony abnormality. Normal bone mineralization. The glenohumeral joint is normal in appearance and normally aligned. The AC joint is normal in appearance and normally aligned. The acromion has a normal appearance without spurring. There is no subacromial space narrowing. The soft tissues appear normal. XR/XR shoulder RT min 2V IMPRESSION: Normal right shoulder. Electronically signed by: Carlos Weeks MD 04/23/2024 09:00 AM ANDRE
== END 2024-02-13 09:31 | disposition home or self-care (01) ==
LOC: HO.HOSX 09:30
PROVIDERS: PCP Family Medicine
DX: M25.511 Pain in right shoulder (principal)
CPT/HCPCS: 73030

== ENCOUNTER → 2024-02-13 09:35 | Outpatient (BNV) | payer OTHER, SELFPAY | PROVIDERS: PCP Family Medicine; Visit Provider Radiology Diagnostic Radiology | DX: M25.511 Pain in right shoulder (principal) | CPT/HCPCS: 73030 ==

== ENCOUNTER 2024-02-13 10:06 | Outpatient (AMB) | payer OTHER, SELFPAY ==
--- NOTE | 2024-02-13 10:16 | MHC.OFFVIS ---
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 Patient reports in July of 2023 she tried to shoot a basketball w/ right hand, when she pulled arm up she felt an excruciating pain, she thought she pulled something and ignored it. A month ago her son added weighted blankets on her, she pulled the blanket up and when she did this she got the same burning pain she got from her first injury back in July. She is unable to move her arm behind her back, when she writes her entire arm starts to shake. Raising arms above head causing extreme pain. Her ROM is very limited. Uses left arm to move right. Her pain is worse at night, interferes with her sleep waking her up every hour. She cannot sleep on right side but sleeping on left makes her shoulder feel as it will slip out of place. Her right shoulder has instability says it feels as if her shoulder is going to come out of place. She says she is a very active person but has not been able to use her right side of body as she used to. Cannot take ibuprofen, Tylenol does not provide her relief. She was prescribed a muscle relaxant and says this also did nothing for her. Hx of Afib. Hx of pre-diabeties. Patient is on low dose of metformin. Patient also has adverse reaction to steriod but she says it was through IV, her blood sugar went high. Allergies steroids Adverse Reaction (Mild, Uncoded 02/13/24 10:18) Unknown ssri Adverse Reaction (Uncoded 02/13/24 10:18) hypertension HPI HPI EXECUTIVE RECRUITER - Right Shoulder Injury: Details: Patient is a 54-year-old female who presents for evaluation of severe right shoulder pain and limited range of motion, ongoing since July of 2023. At that time, the patient reports that she attempted to throw a basketball, and began to experience significant discomfort in the right shoulder. The patient reports that her pain progressively worsened, and she began to experience limited range of motion shortly thereafter. The patient reports that approximately 1-2 months later, she was laying in bed, attempted to switch positions, and felt a popping sensation in her right shoulder, and began to experience significant ?searing? pain in her right shoulder. Patient reports that since that time, she has had severely limited range of motion of the right shoulder, associated with significant dull pain of the right shoulder with occasional episodes of sharp pain. Patient denies any numbness or tingling in the right upper extremity. No other acute complaints or concerns at this time. [facility] Medical History Paroxysmal atrial fibrillation Mesenteric adenitis Neuropathy Depression Pre-diabetes Asthma Afib Anxiety Surgical History Previous section Family History Mother Cardiac arrest Diabetes Asthma Hypertension Cardiovascular disease Father Smoker CKD (chronic kidney disease) Hypertension Sister Mental health disorder Substance abuse Social History Household Members: Children Both parents involved: No Caregiver staying overnight: No Housing: Apartment Are you a primary daytime caregiver to a significant other at home: Yes (autistic son) Do you presently have visiting nurse or other home services: No 75 years or older and lives alone: No Alcohol intake: never Patient Tobacco Use Status: Never used Tobacco e-Cigarette/Vaping Use: Never Used service: No Current occupational status: employed Current occupation: mental health counselor Cognitive needs: Yes Hearing needs: No Vision needs: Yes (wear glasses) Review of Systems Const All systems reviewed & are unremarkable except as noted in HPI and below Physical Exam Vital Signs: BMI result Body Mass Index 35.4 Extrem Other: On inspection, there is no visible deformity of the patient's right shoulder No erythema, edema, ecchymosis noted No lacerations, abrasions, open areas No evidence of infection Patient reports significant tenderness to palpation diffusely throughout her right shoulder, worst in the posterior aspect Patient is able to forward flex the right shoulder to 90 degrees, but experiences significant pain beyond this Patient is able to abduct to approximately 60 degrees on the right, experiences significant pain beyond this Patient is able to externally rotate the right shoulder to approximately 20-30 degrees on the right, compared to 60-70 degrees of the left Unable to externally rotate beyond this with passive range of motion Negative empty can on the right Negative belly press in the right Unable to assess lift-off Distal sensation intact Capillary refill brisk Results Reviewed Results Reviewed: X-rays obtained in the office today and independently reviewed by me, Lucio Dixon PA-C, demonstrate no fracture or acute bony abnormality. Assessment & Plan Assessment & Plan (1) Adhesive capsulitis of right shoulder: Code(s): M75.01 - Adhesive capsulitis of right shoulder Category: Medical Plan 1. Adhesive capsulitis of right shoulder Ongoing since July Patient is educated about this condition Patient is educated about the typical recovery course Patient is informed that the mainstay of treatment for adhesive capsulitis is physical therapy Patient expresses some frustration with this, as she was hoping to get an MRI and to discuss potential surgical intervention, but after discussion about this condition she is more amenable to physical therapy Patient is informed that the recovery course even with PT from adhesive capsulitis is typically very long, and it may take months for her to get normal range of motion and function of her right shoulder back Patient understands this Patient is advised if 2-3 months after starting physical therapy, she notices no relief, she should call our office to make another appointment for discussion of further imaging to assess her right shoulder Patient is amenable to this plan Patient will follow-up as needed with any acute concerns Orders: Orders XR shoulder RT min 2V 02/13/24 M25.511 - Pain in right shoulder PT Evaluation and Treatment 02/13/24 M75.01 - Adhesive capsulitis of right shoulder Coding Level of Care Code New Pt Level 3 (35349) Diagnoses Adhesive capsulitis of right shoulder M75.01
[2024-02-13 10:18] VITALS: BMI 35.4
== END 2024-02-13 11:00 | disposition home or self-care (01) ==
PROVIDERS: PCP Family Medicine
DX: M75.01 Adhesive capsulitis of right shoulder (principal)
CPT/HCPCS: 99203

== ENCOUNTER 2024-03-26 14:44 | Outpatient (AMB) | payer OTHER, SELFPAY ==
--- NOTE | 2024-03-26 15:37 | MHC.OFFVIS ---
Vital Signs 03/26/24 15:38 Height 5 ft 9 in Weight 238 lb 1.588 oz BMI 35.2 BP 120/80 Blood Pressure Location Lt brachial Position Sitting Pulse 90 Intake Visit Reasons: 6 wk s/p jessica score/ labs/ new med Intake Note: 6 week follow-up post calcium score, labs and new medication c/o fatigue still ajusting to meds Risk Lead Required: No Allergies steroids Adverse Reaction (Mild, Uncoded 02/13/24 10:18) Unknown ssri Adverse Reaction (Uncoded 02/13/24 10:18) hypertension Medication List - Last Reconciled 03/26/24 by Reji Verma MD acetaminophen 1,000 mg (2 x 500 mg) PO Q6H PRN albuterol sulfate 90 mcg/actuation (Ventolin HFA) 2 inhalations inhalation Q4H PRN alprazolam (Xanax) 1 mg PO TID PRN apixaban (Eliquis) 5 mg PO BID atorvastatin 20 mg PO DAILY blood-glucose meter As directed diltiazem HCl CD 240 mg PO Q12H 90 days lisinopril 40 mg PO DAILY metformin ER 500 mg PO DAILY@1700 propranolol ER (Inderal LA) 80 mg PO DAILY quetiapine 25 - 50 mg PO BEDTIME HPI Comments Details: Jolanta comes for follow-up after recent coronary calcium score as well as new medication with propranolol. She said initially when she started propranolol she was having some side effects related to it with symptoms of fatigue but since over the last week or 2 she says she has had more symptom relief and heart rate is much better control with exercise and her vitals have been remaining stable at home. She has no prolonged palpitation irregular heartbeat of atrial fibrillation. However she continues to remain very anxious about her heart condition. She underwent a coronary calcium score which shows a calcium score of 32 in the circumflex territory. She denies any symptoms exertional chest pain. Denies any heart failure symptoms. No bleeding issues or neurologic events. [facility] Medical History Paroxysmal atrial fibrillation Mesenteric adenitis Neuropathy Depression Pre-diabetes Asthma Afib Anxiety Surgical History Previous section Family History Mother Cardiac arrest Diabetes Asthma Hypertension Cardiovascular disease Father Smoker CKD (chronic kidney disease) Hypertension Sister Mental health disorder Substance abuse Social History Household Members: Children Both parents involved: No Caregiver staying overnight: No Housing: Apartment Are you a primary long term care social worker to a significant other at home: Yes (autistic son) Do you presently have visiting nurse or other home services: No 75 years or older and lives alone: No Alcohol intake: never Patient Tobacco Use Status: Never used Tobacco e-Cigarette/Vaping Use: Never Used service: No Current occupational status: employed Current occupation: mental health counselor Cognitive needs: Yes Hearing needs: No Vision needs: Yes (wear glasses) Review of Systems Const Denies chills, Denies fatigue, Denies fever(s), Denies frequent falls, Denies weakness, Denies weight gain and Denies weight loss ENT Denies dizziness Card Denies chest pain, Denies leg edema, Denies lightheadedness, Denies palpitations, Denies dyspnea, Denies dyspnea on exertion, Denies orthopnea and Denies other (loss of consciousness) Resp Denies cough, Denies dyspnea and Denies dyspnea on exertion GI Denies hematochezia and Denies change in stool character Musc Denies abnormal gait, Denies muscle weakness, Denies numbness, Denies radiating pain into limb and Denies tingling Neuro Denies abnormal gait, Denies dizziness, Denies frequent falls, Denies numbness, Denies tingling and Denies weakness Endo Denies fatigue and Denies palpitations Physical Exam Vital Signs: Last Vital Signs Pulse 90 03/26/24 15:38 BP 120/80 03/26/24 15:38 BMI result Body Mass Index 35.2 Const General: cooperative, comfortable and anxious Nutritional Appearance: obese Orientation/consciousness: patient oriented x3 Neck Neck: Yes trachea midline, Yes supple and Yes no JVD Resp Effort & Inspection: normal respiratory effort Auscultation: clear to auscultation bilaterally Cardio Jugular venous distension: no JVD Rate: tachycardic Rhythm: regular rhythm Heart sounds: S1 normal heart sound present, S2 normal heart sound present, no click, no gallops, no murmurs and no rubs GI Auscultation: normal bowel sounds Skin General skin exam: no rashes or lesions noted Neuro General: patient oriented x3 and no focal motor deficits Extrem General: Yes no clubbing, cyanosis or edema Assessment & Plan Assessment & Plan (1) Paroxysmal atrial fibrillation: Code(s): I48.0 - Paroxysmal atrial fibrillation Category: Medical Plan: Highly symptomatic paroxysmal atrial fibrillation this middle-aged woman with risk factors of mostly anxiety and hypertension. Her symptoms are better control with symptoms of tachycardia much improved on propranolol therapy. Heart rate is well controlled on today's exam. Continue dual therapy with propranolol as well as Cardizem therapy. If she has recurrent episodes of atrial fibrillation will consider antiarrhythmic drug therapy and/or ablation. Continue full oral anticoagulation, currently on Eliquis 5 mg b.i.d. with CHADSVASc score of 3. Semi annual renal function test should be pursued. She will benefit significantly from stress mitigation strategy and treatment of her anxiety/panic disorder. Avoidance of stimulants was discussed. Stress mitigation strategies were discussed. (2) CAD (coronary artery disease): Code(s): I25.10 - Atherosclerotic heart disease of [place] coronary artery without angina pectoris Category: Medical Qualifiers: Coronary Disease-Associated Artery/Lesion type: [place] artery [place] vs. transplanted heart: [place] heart Associated angina: without angina Qualified Code(s): I25.10 - Atherosclerotic heart disease of [place] coronary artery without angina pectoris Plan: CAD with nonobstructive disease with calcium score predominantly in his circumflex territory. Given her risk factors including strong family history for premature coronary artery disease as hypertension will recommend therapy for the same. Recommend statins will start on atorvastatin 20 mg daily. Follow-up lipid panel in 3 months time. Target goal LDL less than 70 mg/dL. Blood pressure is currently well optimized. No indication for aspirin therapy as patient is already on Eliquis therapy. Will follow up in the clinic in 6 months time, sooner p.r.n.. Thank you for allowing me to partake in his care Coding Level of Care Code Est Pt Level 4 (20600) Complex EM visit Add On G2211 Diagnoses Paroxysmal atrial fibrillation I48.0 Coronary artery disease involving [place] coronary artery of [place] heart without angina pectoris I25.10 Coronary Disease-Associated Artery/Lesion type: [place] artery [place] vs. transplanted heart: [place] heart Associated angina: without angina
[2024-03-26 15:38] VITALS: BP 120/80; PULSE 90; BMI 35.2
== END 2024-03-26 16:01 | disposition home or self-care (01) ==
LOC: HO.HCS 14:45
PROVIDERS: Visit Provider Internal Medicine Cardiovascular Disease
DX: I48.0 Paroxysmal atrial fibrillation (principal); I25.10 Atherosclerotic heart disease of native coronary artery without angina pectoris
CPT/HCPCS: 99214; G2211

== ENCOUNTER 2024-04-06 15:40 | Outpatient (AMB) | payer OTHER, SELFPAY ==
--- NOTE | 2024-04-06 16:02 | MHC.PC.OV ---
Vital Signs 04/06/24 16:05 Height 5 ft 9 in Weight 256 lb 4 oz BMI 37.8 BP 130/70 Blood Pressure Location Rt brachial Position Sitting Respiration 18 Pulse 87 Pulse Source Pulse Oximeter Temp 98.0 F Temp Source Oral Pulse Oximetry (%) 98 Oxygen Delivery Method Room Air Intake Visit Reasons: fu labs and cont care Intake Note: establish care Allergies steroids Adverse Reaction (Mild, Uncoded 04/06/24 16:03) Unknown ssri Adverse Reaction (Uncoded 04/06/24 16:03) hypertension Tobacco use date assessed: 02/01/24 Dental Screening Dental Screen Date: 02/01/24 HPI fu labs and cont care HPI Details 54 y/o female presents to f/u chronic conditions. Labs drawn 02/07/24. Reviewed labs with pt. Triglycerides 179. TC 257. LDL 167. HDL 55. Vitamin D low at 19.1. A1c 6.6%. Prior?PCP: Dr Antunez in [facility] Last?office?visit/CPE: > 1 yr Acute?issue(s): Coronary?calcium?score?32 PMHx:??CAD, mild?aortic?dilatation, HTN, diabetes,?Atrial?fibrillation - 1st episode 5 yrs ago, anxiety, depression, hypertension, adhesive?capsulitis?right?shoulder, , asthma, h/o sepsis x 1, L Renal Cyst SurgHx: , Gall bladder & bile duct repair. FHx: Mom: DM, HTN, CAD, Sudden Cardiac . Dad: CAD & Bypass, HLD, Renal Failure. GM: Breast CA SocHx: Cigs: Nonsmoker, EtOH: Quit 5 yrs ago w/ 1st afib episode, No drugs HPI Comments History of Present Illness Details Documentation assistance for Timmy Bonner MD, was provided by Wilder Varner,? Filling Station Equipment Mechanic on 04/06/2024 at 4:25 PM EST. I, Dr. Bonner, have read, observed, and verified documentation. PFSH Medical History Paroxysmal atrial fibrillation Mesenteric adenitis Neuropathy Depression Pre-diabetes Asthma Afib Anxiety Surgical History Previous section Family History Mother Cardiac arrest Diabetes Asthma Hypertension Cardiovascular disease Father Smoker CKD (chronic kidney disease) Hypertension Sister Mental health disorder Substance abuse Social History Household Members: Children Both parents involved: No Caregiver staying overnight: No Housing: Apartment Are you a primary progressive care manager to a significant other at home: Yes (autistic son) Do you presently have visiting nurse or other home services: No 75 years or older and lives alone: No Alcohol intake: never Patient Tobacco Use Status: Never used Tobacco e-Cigarette/Vaping Use: Never Used service: No Current occupational status: employed Current occupation: mental health counselor Cognitive needs: Yes Hearing needs: No Vision needs: Yes (wear glasses) Questionnaire PHQ-9 Over the last 2 weeks, how often have you been bothered by any of the following problems? 1. Little interest or pleasure in doing things: nearly every day 2. Feeling down, depressed, or hopeless: nearly every day 3. Trouble falling or staying asleep, or sleeping too much: more than half the days 4. Feeling tired or having little energy: nearly every day 5. Poor appetite or overeating: more than half the days 6. Feeling bad about yourself - or that you are a failure or have let yourself or your family down: nearly every day 7. Trouble concentrating on things, such as reading the newspaper or watching television: nearly every day 8. Moving or speaking so slowly that other people could have noticed. Or the opposite - being so fidgety or restless that you have been moving around a lot more than usual: more than half the days Source: Developed by Drs. Scar Finley, Joseline Jon, Benito Rocha and colleagues, with an educational logan from [employer]. Thrive Questionnaire Date Thrive assessed: 03/30/24 I am a: Patient What is your living situation today?: I have a steady place to live Within the past 12 months, did the food you bought not last and you didn't have the money to get more?: Sometimes True Within the past 12 months, did you worry whether your food would run out before you got money to buy more?: Sometimes True Do you have trouble paying for medicines?: No Do you have trouble getting transportation to medical appointments?: No Do you have trouble paying your heating and electricity bill?: No Do you have trouble taking care of your child, family member or friend?: No Do you have trouble with day-to-day activities such as bathing, preparing meals, shopping, managing finances, etc.?: No Are you currently unemployed and looking for a job?: No Are you interested in more education?: No Please select the resources that you would like help with: Care for elder or disabled Currently or been in a relationship where the following occur: I choose not to answer THRIVE Score: 2 AUDIT C Alcohol Use Questionnaire (AUDIT-C) 1. How often do you have a drink containing alcohol?: Never 3. How often do you have six or more drinks on one occasion?: Never Total Score: 0 JACQUELINE-7 AMB Questionnaire JACQUELINE-7 Date JACQUELINE - 7 assessed: 02/01/24 Feeling nervous, anxious, or on edge: 3 = Nearly every day Not being able to stop or control worryin = Nearly every day Worrying too much about different things: 3 = Nearly every day Trouble relaxin = Nearly every day Being so restless that it is hard to sit still: 1 = Several days Becoming easily annoyed or irritable: 2 = More than half the days Feeling afraid as if something awful might happen: 3 = Nearly every day Total JACQUELINE-7 score (0-4 normal; 5-9 mild; 10-14 moderate; 15-21 severe): 18 Source: Developed by Drs. Scar Finley, Joseline Jon, Benito Rocha and colleagues, with an educational logan from [employer]. Review of Systems Const Denies chills, Denies fatigue, Denies fever(s), Denies headache(s) and Denies weakness ENT Denies dizziness and Denies headache(s) Card Denies dyspnea Resp Denies cough, Denies dyspnea, Denies wheezing and Denies other (shortness of breath) Musc Denies numbness and Denies tingling Neuro Denies dizziness, Denies headache(s), Denies numbness, Denies tingling and Denies weakness Psych Reports anxiety and Reports depression Endo Denies fatigue Aller/Immun Denies wheezing Physical exam (Primary Care) Vital Signs: Last Vital Signs Temp 98.0 F 04/06/24 16:05 Pulse 87 04/06/24 16:05 Resp 18 04/06/24 16:05 BP 130/70 04/06/24 16:05 Pulse Ox 98 04/06/24 16:05 Oxygen Delivery Method Room Air 04/06/24 16:05 BMI result Body Mass Index 37.8 Tobacco/Smoking Status: Tobacco use Status Tobacco use date assessed 02/01/24 04/06/24 16:07 Patient Tobacco Use Status Never used Tobacco 04/06/24 16:07 e-Cigarette/Vaping Use Never Used 04/06/24 16:07 Thrive Assessment: Date of Thrive Assessment Date Thrive assessed 03/30/24 04/06/24 16:07 Currently or been in a relationship where the following occur: I choose not to answer Const General: well developed; No acute distress Nutritional Appearance: well nourished and obese Orientation/consciousness: patient oriented x3 HENMT Head: Yes normocephalic and Yes atraumatic Eyes General: appearance normal, both eyes and all related structures Pupils: Equal, round and reactive pupils present EOM: EOMs intact bilaterally Resp Effort & Inspection: normal respiratory effort Auscultation: clear to auscultation bilaterally Cardio Rate: regular rate Rhythm: regular rhythm Heart sounds: S1 normal heart sound present, S2 normal heart sound present, no gallops, no murmurs and no rubs Neuro General: patient oriented x3 and gait normal Cranial nerves: Yes Equal, round and reactive pupils present Psych Affect: normal affect Coding Level of Care Code New Pt Level 4 (23907) Diagnoses Diabetes E11.9 Coronary artery disease involving [place] coronary artery of [place] heart without angina pectoris I25.10 Associated angina: without angina Coronary Disease-Associated Artery/Lesion type: [place] artery [place] vs. transplanted heart: [place] heart Primary hypertension I10 Hypertension type: primary hypertension Mild intermittent asthma without complication J45.20 Asthma complication type: uncomplicated Asthma persistence: intermittent Asthma severity: mild Paroxysmal atrial fibrillation I48.0 Atrial fibrillation type: paroxysmal Mild dilation of ascending aorta I77.810 Adhesive capsulitis of right shoulder M75.01 Sleep apnea G47.30 Depression with anxiety F41.8 Renal cyst, left N28.1 Neuropathy G62.9 Laboratory exam ordered as part of routine general medical examination Z00.00 Vitamin D deficiency E55.9 Assessment & Plan Assessment & Plan (1) Diabetes: Code(s): E11.9 - Type 2 diabetes mellitus without complications Category: Medical Plan: Most?recent?A1c?was?6.6%?on?metoprolol?500?mg?daily. Goal?is?less?than?7.0%.??Controlled However,?given?patient's?cardiac?history?and?her?history?of?obesity,?she?would?benefit?from?a?GLP?1?medication Will?have?her?start?Ozempic.??Risks/benefits?discussed Will?follow-up?in?1?month (2) CAD (coronary artery disease): Code(s): I25.10 - Atherosclerotic heart disease of [place] coronary artery without angina pectoris Category: Medical Qualifiers: Associated angina: without angina Coronary Disease-Associated Artery/Lesion type: [place] artery [place] vs. transplanted heart: [place] heart Qualified Code(s): I25.10 - Atherosclerotic heart disease of [place] coronary artery without angina pectoris Plan: [place] [place]?perfusion?imaging?showed?some?inferior?wall?thinning?but?was?otherwise?unremarkable.??Coronary?calcium?score?32. She?is?on?atorvastatin Continue?to?follow-up?with?Cardiology?as?recommended Patient?had?recent?lipid?panel?showing?elevated?LDL.??She?says?she?was?not?fasting?for?this?though?I?suspect?levels?are?fairly?accurate. She?is?on?atorvastatin?I?recommend?she?continue?this.??Will?recheck?lipid?levels?to?get?more?accurate?assessment. (3) Hypertension: Code(s): I10 - Essential (primary) hypertension Category: Medical Qualifiers: Hypertension type: primary hypertension Qualified Code(s): I10 - Essential (primary) hypertension Plan: Blood?pressure?is?fairly?well?controlled Continue?lisinopril,?propranolol?and?diltiazem. Encouraged?weight?loss (4) Asthma: Code(s): J45.909 - Unspecified asthma, uncomplicated Category: Medical Qualifiers: Asthma complication type: uncomplicated Asthma persistence: intermittent Asthma severity: mild Qualified Code(s): J45.20 - Mild intermittent asthma, uncomplicated Plan: Patient?notes?that?her?asthma?has?been?slightly?worsened?since?starting?propranolol Propranolol?was?started?due?to?her?paroxysmal?atrial?fibrillation. Will?have?her?start?a?controller?steroid?medication?and?she?can?use?albuterol?as?needed Advised?her?to?discuss?propranolol?with?her?window glazier (5) Afib: Code(s): I48.91 - Unspecified atrial fibrillation Category: Medical Qualifiers: Atrial fibrillation type: paroxysmal Qualified Code(s): I48.0 - Paroxysmal atrial fibrillation Plan: History?of?paroxysmal?atrial?fibrillation She?is?on?diltiazem,?propranolol?and?Eliquis Fairly?well?controlled?on?this?regimen.??However?since?starting?propranolol?she?does?note?some?worsening?of?her?asthma?but?no?acute?distress.??Advised?she?discuss?with?her?window glazier?and?she?agrees. Today?she?is?in?regular?rhythm?with?normal?rate (6) Mild dilation of ascending aorta: Code(s): I77.810 - Thoracic aortic ectasia Category: Medical Plan: Control?blood?pressure Follow-up?with?Cardiology?as?recommended (7) Adhesive capsulitis of right shoulder: Code(s): M75.01 - Adhesive capsulitis of right shoulder Category: Medical Plan: Improving Continue?exercises (8) Sleep apnea: Code(s): G47.30 - Sleep apnea, unspecified Category: Medical Plan: Home?sleep?study?was?negative?but?patient?has?a?history?of?sleep?apnea We?discussed?potentially?sending?her?for?evaluation?in?a?sleep?lab,?however?she?seems?to?have?fewer?symptoms?with?weight?loss?and?we?are?starting?Ozempic?to?help?with?weight?loss?which?may?obviate?her?problem Will?follow-up?again?to?re-evaluate?weight?loss?and?any?sleep?apnea?symptoms (9) Depression with anxiety: Code(s): F41.8 - Other specified anxiety disorders Category: Medical Plan: Significant?anxiety?depression.??She?has?a?therapist?and?psych?med?provider Somewhat?stable?on?current?regimen?of?quetiapine?and?alprazolam Continue?current?regimen Follow-up?with?psych?med?team?as?recommended (10) Renal cyst, left: Code(s): N28.1 - Cyst of kidney, acquired Category: Medical Plan: Left?renal?cyst?seen?incidentally?on?imaging?and?not?further?worked?up Ultrasound?ordered (11) Neuropathy: Code(s): G62.9 - Polyneuropathy, unspecified Category: Medical Plan: Patient?notes?some?paresthesia?bilateral?toe?tips?and?feet Possibly?secondary?to?longstanding?but?previously?uncontrolled?diabetes. Continue?working?at?good?diabetes?control She?has?tried?gabapentin?in?the?past?and?she?will?look?into?the?dose?that?she?was?taking?as?she?said?it?helped?but?she?did?not?like?how?it?made?her?feel.??We?may?be?able?to?adjust?the?dose. She?is?also?taking?B12 (12) Laboratory exam ordered as part of routine general medical examination: Code(s): Z00.00 - Encounter for general adult medical examination without abnormal findings Category: Medical Plan: Check?lab (13) Vitamin D deficiency: Code(s): E55.9 - Vitamin D deficiency, unspecified Category: Medical Plan: Start?cholecalciferol Will?recheck?levels Orders: Orders US renal BI Today N28.1 - Cyst of kidney, acquired Comprehensive [place]. Panel Fast Today I25.10 - Atherosclerotic heart disease of [place] coronary artery without angina pectoris, Z00.00 - Encounter for general adult medical examination without abnormal findings Microalbumin, Random (w Creat) Today I10 - Essential (primary) hypertension, I25.10 - Atherosclerotic heart disease of [place] coronary artery without angina pectoris TSH reflex Free T4 Today I25.10 - Atherosclerotic heart disease of [place] coronary artery without angina pectoris, Z00.00 - Encounter for general adult medical examination without abnormal findings UA and rflx microscopic Today I25.10 - Atherosclerotic heart disease of [place] coronary artery without angina pectoris, Z00.00 - Encounter for general adult medical examination without abnormal findings Complete Blood Count Auto Diff Today I25.10 - Atherosclerotic heart disease of [place] coronary artery without angina pectoris, Z00.00 - Encounter for general adult medical examination without abnormal findings Lipid Panel Today I25.10 - Atherosclerotic heart disease of [place] coronary artery without angina pectoris, Z00.00 - Encounter for general adult medical examination without abnormal findings LDL Cholesterol Direct Today E78.5 - Hyperlipidemia, unspecified, I25.10 - Atherosclerotic heart disease of [place] coronary artery without angina pectoris Hemoglobin A1c Today E11.9 - Type 2 diabetes mellitus without complications, R73.01 - Impaired fasting glucose Medications: New cholecalciferol (vitamin D3) 50 mcg PO DAILY 90 days 90 caps 3RF budesonide 180 mcg/actuation 1 inh inhalation BID 30 days 1 ea 3RF semaglutide (Ozempic) for 4 weeks 0.25 mg (0.368 mL) subcut QWEEK 28 days 1.472 mL 2RF
[2024-04-06 16:05] VITALS: BP 130/70; PULSE 87; RESP 18; TEMP 36.7; O2SAT 98; BMI 37.8
== END 2024-04-06 17:02 | disposition home or self-care (01) ==
PROVIDERS: PCP Family Medicine; Visit Provider Family Medicine
DX: E11.9 Type 2 diabetes mellitus without complications (principal); I48.0 Paroxysmal atrial fibrillation; I77.810 Thoracic aortic ectasia; I25.10 Atherosclerotic heart disease of native coronary artery without angina pectoris; I10 Essential (primary) hypertension; J45.20 Mild intermittent asthma, uncomplicated; M75.01 Adhesive capsulitis of right shoulder; G47.30 Sleep apnea, unspecified; F41.8 Other specified anxiety disorders; N28.1 Cyst of kidney, acquired; G62.9 Polyneuropathy, unspecified; E55.9 Vitamin D deficiency, unspecified

== ENCOUNTER → 2024-04-06 15:40 | Outpatient (BNVA) | payer OTHER, SELFPAY | PROVIDERS: PCP Family Medicine; Visit Provider Family Medicine ==

== ENCOUNTER 2024-05-08 15:04 | Outpatient (REF) | payer OTHER, SELFPAY ==
[2024-05-08 16:05] LABS: MANUAL DIFF FLAG NO
[2024-05-08 16:11] LABS: Appearance Urine Clear; Color Urine Yellow; Glucose Urine UA Negative (Negative); Leukocyte Esterase Urine Trace (Negative); Nitrite Urine Negative (Negative); PH 5.5 (5.0-9.0); UMIC TRIGGER UA YES; Urine Blood Small (1+) (Negative); Urine Ketones Negative (Negative); Urine Protein Negative (Neg-Trace)
[2024-05-08 16:16] LABS: Basophils Absolute Auto 0.1 X10*3/uL (0.0-0.2); Basophils Percent Auto 0.6 % (0-2); Eosinophils Absolute Auto 0.3 X10*3/uL (0.0-0.4); Eosinophils Percent Auto 3.5 % (0-4); Hematocrit 37.9 % (37.0-47.0); Hemoglobin 12.2 g/dl (12.0-16.0); Imm Gran Abs Auto 0.02 X10*3/uL (0.00-0.03); Imm Gran Pct Auto 0.2 % (0.0-0.4); Lymphocytes Absolute Auto 1.8 X10*3/uL (1.2-4.9); Lymphocytes Percent Auto 21.2 % (20-40); Mean Corpuscular HGB Conc 32.2 g/dl (31.0-35.0); Mean Corpuscular Hemoglobin 26.8 pg (27.0-33.0); Mean Corpuscular Volume 83.3 fL (80.0-98.0); Mean Platelet Volume 8.8 fL (9.4-12.3); Monocytes Absolute Auto 0.6 X10*3/uL (0.1-1.2); Monocytes Percent Auto 7.5 % (2-11); Neutrophils Absolute Auto 5.6 x10*3/uL (2.0-8.3); Platelet Count 373 X10*3/uL (160-400); Red Blood Count 4.55 X10*6/uL (4.20-5.50); Red Cell Distribution Width 13.3 % (11.0-16.0); White Blood Count 8.3 X10*3/uL (4.8-10.8)
[2024-05-08 16:28] LABS: Bacteria Urine 1+ (None Seen); Hyaline Casts Urine 0-2 /LPF (0-2); RBC Urine 0-2 /HPF (0-2); WBC Urine 0-5 /HPF (0-5)
[2024-05-08 16:44] LABS: Creatinine Urine 79.39 mg/dL; Microalbum/Creatinine Ratio Ur 15.1 ug/mg cr (<30)
[2024-05-08 16:45] LABS: Estimated Average Glucose 174 mg/dL; Hemoglobin A1C 187.2825 umol/L; Hemoglobin A1c % 7.7 % (<6.0); Total Hemoglobin (HGBA1C) 3115.3301 umol/L
[2024-05-08 16:48] LABS: Alanine Aminotransferase 34 U/L (0-31); Albumin Level 3.8 g/dL (3.5-5.0); Alkaline Phosphatase 94 U/L (39-117); Anion Gap 10 (12-20); Aspartate Amino Transferase 51 U/L (5-31); Bilirubin Total 0.7 mg/dL (0.0-1.0); Blood Urea Nitrogen 11 mg/dL (9-16); Calcium 9.3 mg/dL (8.4-10.2); Carbon Dioxide 27 mmol/L (22-29); Chloride 102 mmol/L (96-108); Cholesterol 164 mg/dL (<200); Estimated Glomerular Filt Rate > 60; Glucose Fasting 140 mg/dL (60-99); HDL Cholesterol 43 mg/dL (>40); LDL Cholesterol Calculated 94 mg/dL (<100); Potassium 4.1 mmol/L (3.3-5.1); Sodium 135 mmol/L (135-145); Total Protein 8.2 g/dL (6.5-8.0); Triglycerides 138 mg/dL (<150)
[2024-05-08 16:52] LABS: TSH reflex Free T4 2.15 uIU/mL (0.32-4.0)
[2024-05-10 04:09] LABS: LDL Cholesterol Direct 110 mg/dL (<100)
== END 2024-05-08 15:05 | disposition home or self-care (01) ==
LOC: HO.HMGCX 15:04
PROVIDERS: PCP Family Medicine; Visit Provider Family Medicine
DX: Z00.00 Encounter for general adult medical examination without abnormal findings (principal); N28.1 Cyst of kidney, acquired; I25.10 Atherosclerotic heart disease of native coronary artery without angina pectoris; E11.9 Type 2 diabetes mellitus without complications; I10 Essential (primary) hypertension; E78.5 Hyperlipidemia, unspecified
CPT/HCPCS: 36415; 76775; 80053; 80061; 81001; 82043; 82570; 83036; 83721; 84443; 85025

== ENCOUNTER 2024-05-10 12:47 | Outpatient (AMB) | payer OTHER, SELFPAY ==
--- NOTE | 2024-05-10 13:07 | A.OFFPC_ITS ---
Vital Signs 05/10/24 13:14 Height 5 ft 9 in Weight 254 lb 2 oz BMI 37.5 BP 110/60 Blood Pressure Location Rt brachial Position Sitting Respiration 16 Pulse 82 Pulse Source Pulse Oximeter Temp 97.6 F Temp Source Oral Pulse Oximetry (%) 98 Oxygen Delivery Method Room Air Intake Visit Reasons: f/u chronic conditions Intake Note: f/u chronic condition Allergies steroids Adverse Reaction (Mild, Uncoded 04/06/24 16:03) Unknown ssri Adverse Reaction (Uncoded 04/06/24 16:03) hypertension Tobacco use date assessed: 02/01/24 Dental Screening Dental Screen Date: 02/01/24 HPI f/u chronic conditions HPI Details Patient?returns?to?follow-up?diabetes?and?chronic?conditions Recent?A1c?had?climbed?to?7.7%.??She?was?not?able?to?get?her?Ozempic?until?about ?2?weeks?ago. She?has?been?taking?metformin?500?mg?once?a?day. She?had?had?a?renal?cyst?whi ch?had?never?been?characterized?in?an?ultrasound?has?been?acquired?but?is?not?re ad?yet.??We?will?follow-up?on?this?at?a?subsequent?visit Reviewed?labs?with?patient: Mildly?elevated?liver?enzymes. Lipids?are?well?controlled?now.??She?is?on?atorvastatin?20?mg?daily She?had?also?been?having?flare-ups?of?her?asthma?at?her?last?visit.??She?is?usin g?albuterol?and?I?had?given?her?a?script?for?Pulmicor t.??She?was?unable?to?pick?this?up?recently. She?has?noted?improved?breathing?though?is?unclear?this?is?due?to?other?medicati ons?since?she?only?started?it?a?short?while?ago. [facility] Medical History (Updated 05/10/24 @ 13:46 by Timmy Bonner MD) Paroxysmal atrial fibrillation Mesenteric adenitis Neuropathy Depression Pre-diabetes Asthma Afib Anxiety Surgical History Previous section Family History Mother Cardiac arrest Diabetes Asthma Hypertension Cardiovascular disease Father Smoker CKD (chronic kidney disease) Hypertension Sister Mental health disorder Substance abuse Social History Household Members: Children Both parents involved: No Caregiver staying overnight: No Housing: Apartment Are you a primary career information specialist to a significant other at home: Yes (autistic son) Do you presently have visiting nurse or other home services: No 75 years or older and lives alone: No Alcohol intake: never Patient Tobacco Use Status: Never used Tobacco e-Cigarette/Vaping Use: Never Used service: No Current occupational status: employed Current occupation: mental health counselor Cognitive needs: Yes Hearing needs: No Vision needs: Yes (wear glasses) Questionnaire PHQ-9 Over the last 2 weeks, how often have you been bothered by any of the following problems? 9. Thoughts that you would be better off or of hurting yourself in some way: not at all Source: Developed by Drs. Scar Finley, Joseline Jon, Benito Rocha and colleagues, with an educational logan from [employer]. Thrive Questionnaire Date Thrive assessed: 03/30/24 I am a: Patient What is your living situation today?: I have a steady place to live Within the past 12 months, did the food you bought not last and you didn't have the money to get more?: Sometimes True Within the past 12 months, did you worry whether your food would run out before you got money to buy more?: Sometimes True Do you have trouble paying for medicines?: No Do you have trouble getting transportation to medical appointments?: No Do you have trouble paying your heating and electricity bill?: No Do you have trouble taking care of your child, family member or friend?: No Do you have trouble with day-to-day activities such as bathing, preparing meals, shopping, managing finances, etc.?: No Are you currently unemployed and looking for a job?: No Are you interested in more education?: No Please select the resources that you would like help with: Care for elder or disabled Currently or been in a relationship where the following occur: I choose not to answer THRIVE Score: 2 JACQUELINE-7 AMB Questionnaire JACQUELINE-7 Date JACQUELINE - 7 assessed: 02/01/24 Source: Developed by Drs. Scar Finley, Joseline Jon, Benito Rocha and colleagues, with an educational logan from [employer]. Review of Systems Const Denies chills, Denies fatigue, Denies fever(s), Denies headache(s) and Denies weakness ENT Denies dizziness and Denies headache(s) Card Denies chest pain, Denies lightheadedness, Denies dyspnea and Denies other (Palpitations) Resp Denies cough, Denies dyspnea, Denies wheezing and Denies other ( shortness of breath) Musc Denies numbness and Denies tingling Neuro Denies dizziness, Denies headache(s), Denies numbness, Denies tingling, Denies paresthesias and Denies weakness Psych Denies anxiety and Denies depression Endo Denies fatigue Aller/Immun Denies wheezing Physical exam (Primary Care) Vital Signs: Last Vital Signs Temp 97.6 F 05/10/24 13:14 Pulse 82 05/10/24 13:14 Resp 16 05/10/24 13:14 BP 110/60 05/10/24 13:14 Pulse Ox 98 05/10/24 13:14 Oxygen Delivery Method Room Air 05/10/24 13:14 BMI result Body Mass Index 37.5 Tobacco/Smoking Status: Tobacco use Status Tobacco use date assessed 02/01/24 05/10/24 13:07 Patient Tobacco Use Status Never used Tobacco 05/10/24 13:07 e-Cigarette/Vaping Use Never Used 05/10/24 13:07 Thrive Assessment: Date of Thrive Assessment Date Thrive assessed 03/30/24 05/10/24 13:07 Currently or been in a relationship where the following occur: I choose not to answer Const General: no acute distress and well developed Nutritional Appearance: well nourished Orientation/consciousness: patient oriented x3 HENMT Head: Yes normocephalic and Yes atraumatic Eyes General: appearance normal, both eyes and all related structures Pupils: Equal, round and reactive pupils present EOM: EOMs intact bilaterally Resp Effort & Inspection: normal respiratory effort Auscultation: clear to auscultation bilaterally Cardio Rate: regular rate Rhythm: regular rhythm Heart sounds: S1 normal heart sound present, S2 normal heart sound present, no gallops, no murmurs and no rubs Neuro General: patient oriented x3 and gait normal Cranial nerves: Yes Equal, round and reactive pupils present Psych Affect: normal affect Office Procedures Flu Questionnaire Does the patient have a severe egg allergy?: No Does the patient have severe life threatening allergies?: No Does the patient have a fever or illness today?: No Has the patient ever had Guillain-Sutter Syndrome?: No Has the patient ever had any past reaction to a flu shot?: No Immunizations Fluarix Triv [id number] (PF) 45 mcg (15 mcg x 3)/0.5 mL IM syringe Performing Provider: Timmy Bonner MD Performing Location: [facility] Administered by: Tariq Castañeda CMA on 05/10/24 13:19 Dose Route Admin Location Dispensed Lot Number Expiration Date [facility] [employer] Machine [employer] 0.5 mL IM Left Deltoid 0.5 mL [id number] 11/19/24 38085-749-74 [employer] VIS Given Date VIS Provided VIS Publication Date 05/10/24 Single Vaccine 20 Eligibility Eligibility Date Funding Source Not [facility] Eligible 05/10/24 Private Coding Level of Care Code Est Pt Level 4 (66552) Diagnoses Diabetes E11.9 Renal cyst, left N28.1 Mild intermittent asthma without complication J45.20 Asthma severity: mild Asthma persistence: intermittent Asthma complication type: uncomplicated Elevated liver enzymes R74.8 Hyperlipidemia E78.5 Assessment & Plan Assessment & Plan (1) Diabetes: Code(s): E11.9 - Type 2 diabetes mellitus without complications Category: Medical Plan: A1c?7.7%.??Poor?control?but?she?only?just?received?her?Ozempic?recently.??She?is ?also?only?taking?metformin?500?mg?daily. Goal?is?less?than?7.0% Continue?metformin?500?mg?daily.??She?will?finish?this?month?and?increase?Ozempi c?from?0.25?mg?weekly?to?0.5?mg?weekly (2) Renal cyst, left: Code(s): N28.1 - Cyst of kidney, acquired Category: Medical Plan: Renal?ultrasound?has?been?acquired?but?has?not?been?read?yet. We?will?review?at?her?next?visit?or?if?requires?action?sooner,?will?call?patient ?with?results?when?available (3) Asthma: Code(s): J45.909 - Unspecified asthma, uncomplicated Category: Medical Qualifiers: Asthma severity: mild Asthma persistence: intermittent Asthma complication type: uncomplicated Qualified Code(s): J45.20 - Mild intermittent asthma, uncomplicated Plan: Improved. Continue?controller?medication?in?use?rescue?medication?need (4) Elevated liver enzymes: Code(s): R74.8 - Abnormal levels of other serum enzymes Category: Medical Plan: Mildly?elevated?liver?enzyme Encouraged?weight?loss?in?good?hydration Avoid?Tylenol.??Patient?says?she?does?not?drink?alcohol. Will?recheck?and?if?numbers?of?the?same?or?higher,?will?get?an?ultrasound But?also?consider?lowering?statin?if?no?other?cause?is?found (5) Hyperlipidemia: Code(s): E78.5 - Hyperlipidemia, unspecified Category: Medical Plan: Lipids?now?controlled?on?atorvastatin?20?mg?daily Will?continue?her?medication?regimen Orders: Orders Influenza [id number] Immunization Today Z23 - Encounter for immunization Medications: Changed From semaglutide (Ozempic) for 4 weeks 0.25 mg (0.368 mL) subcut QWEEK 28 days 1.472 mL 2RF To semaglutide (Ozempic) for 4 weeks 0.5 mg (0.736 mL) subcut QWEEK 28 days 2.944 mL 2RF
[2024-05-10 13:14] VITALS: BP 110/60; PULSE 82; RESP 16; TEMP 36.4; O2SAT 98; BMI 37.5
== END 2024-05-10 13:43 | disposition home or self-care (01) ==
PROVIDERS: PCP Family Medicine; Visit Provider Family Medicine
DX: E11.9 Type 2 diabetes mellitus without complications (principal); N28.1 Cyst of kidney, acquired; J45.20 Mild intermittent asthma, uncomplicated; R74.8 Abnormal levels of other serum enzymes; E78.5 Hyperlipidemia, unspecified; Z23 Encounter for immunization

== ENCOUNTER → 2024-05-10 12:47 | Outpatient (BNVA) | payer OTHER, SELFPAY | PROVIDERS: PCP Family Medicine; Visit Provider Family Medicine | DX: E11.9 Type 2 diabetes mellitus without complications (principal); N28.1 Cyst of kidney, acquired; J45.20 Mild intermittent asthma, uncomplicated; Z23 Encounter for immunization; R74.8 Abnormal levels of other serum enzymes; E78.5 Hyperlipidemia, unspecified; Z79.84 Long term (current) use of oral hypoglycemic drugs; Z79.899 Other long term (current) drug therapy | CPT/HCPCS: 90471; 90656 ==

== ENCOUNTER 2024-08-11 10:51 | Outpatient (REF) | payer OTHER, SELFPAY ==
[2024-08-11 13:56] LABS: Appearance Urine Clear; Color Urine Yellow; Glucose Urine UA Negative (Negative); Leukocyte Esterase Urine Negative (Negative); Nitrite Urine Negative (Negative); PH 6.5 (5.0-9.0); Specific Gravity - Urine <= 1.005 (1.005-1.025); UMIC TRIGGER UA YES; Urine Blood Small (1+) (Negative); Urine Ketones Negative (Negative); Urine Protein Negative (Neg-Trace)
[2024-08-11 14:02] LABS: Alanine Aminotransferase 12 U/L (0-31); Albumin Level 3.6 g/dL (3.5-5.0); Alkaline Phosphatase 75 U/L (39-117); Anion Gap 12 (12-20); Aspartate Amino Transferase 22 U/L (5-31); Bilirubin Total 0.4 mg/dL (0.0-1.0); Blood Urea Nitrogen 12 mg/dL (9-16); Calcium 9.4 mg/dL (8.4-10.2); Carbon Dioxide 25 mmol/L (22-29); Chloride 106 mmol/L (96-108); Cholesterol 133 mg/dL (<200); Estimated Glomerular Filt Rate > 60; Glucose Random 108 mg/dL (60-115); HDL Cholesterol 35 mg/dL (>40); LDL Cholesterol Calculated 76 mg/dL (<100); Potassium 3.5 mmol/L (3.3-5.1); Sodium 139 mmol/L (135-145); Triglycerides 111 mg/dL (<150)
[2024-08-11 14:08] LABS: Bacteria Urine None Seen (None Seen); Hyaline Casts Urine 0-2 /LPF (0-2); RBC Urine 0-2 /HPF (0-2); Squamous Epithelial Cell Urine 0-2 /HPF (0-2); WBC Urine 0-5 /HPF (0-5)
[2024-08-11 14:18] LABS: TSH reflex Free T4 1.27 uIU/mL (0.32-4.0)
[2024-08-11 15:20] LABS: Microalbumin Urine < 5.0 mg/L
== END 2024-08-11 10:52 | disposition home or self-care (01) ==
LOC: HO.HMGCLDS 10:51
PROVIDERS: PCP Family Medicine; Referring Provider Internal Medicine Cardiovascular Disease; Visit Provider Family Medicine
DX: Z00.00 Encounter for general adult medical examination without abnormal findings (principal); I10 Essential (primary) hypertension; I25.10 Atherosclerotic heart disease of native coronary artery without angina pectoris; R74.8 Abnormal levels of other serum enzymes
CPT/HCPCS: 36415; 80053; 80061; 81001; 81003; 82043; 82570; 84443

== ENCOUNTER 2024-08-24 13:25 | Outpatient (AMB) | payer OTHER, SELFPAY ==
--- NOTE | 2024-08-24 13:49 | MHC.PC.OV ---
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 Allergies steroids Adverse Reaction (Mild, Uncoded 04/06/24 16:03) Unknown ssri Adverse Reaction (Uncoded 04/06/24 16:03) hypertension Medication List - Last Reconciled 08/24/24 by Timmy Bonner MD acetaminophen 1,000 mg (2 x 500 mg) PO Q6H PRN albuterol sulfate 90 mcg/actuation (Ventolin HFA) 2 inhalations inhalation Q4H PRN 30 days alprazolam (Xanax) 1 mg PO TID PRN apixaban (Eliquis) 5 mg PO BID atorvastatin 40 mg PO BEDTIME blood-glucose meter As directed budesonide 180 mcg/actuation 1 inh inhalation BID 30 days cholecalciferol (vitamin D3) 50 mcg PO DAILY 90 days diltiazem HCl CD 240 mg PO Q12H 90 days lisinopril 20 mg PO DAILY metformin ER 500 mg PO DAILY 90 days propranolol ER 80 mg PO DAILY quetiapine 25 - 50 mg PO BEDTIME semaglutide (Ozempic) 0.5 mg (0.736 mL) subcut QWEEK 28 days Tobacco use date assessed: 02/01/24 Dental Screening Dental Screen Date: 02/01/24 HPI f/u chronic conditions HPI Details 54 y/o female presents to f/u chronic conditions. Had hx of elevated liver enzymes - also following up on renal ultrasound for uncharacterized cyst. Following up on her diabetes and hypertension. Labs drawn 08/11/24. Reviewed labs with pt. Triglycerides 111. TC 133. LDL 76. HDL low at 35. She is on artovastatin 40mg. Liver enzymes improved - AST 22, ALT 12. Blood pressure today 120/70, 81p. She is on lisinopril 20mg, propranolol 80mg daily. A1c today 5.5%. She is on metformin and ozempic. She denies any problems with her medication regimen. [facility] Medical History (Updated 05/10/24 @ 13:46 by Timmy Bonner MD) Paroxysmal atrial fibrillation Mesenteric adenitis Neuropathy Depression Pre-diabetes Asthma Afib Anxiety Surgical History Previous section Family History Mother Cardiac arrest Diabetes Asthma Hypertension Cardiovascular disease Father Smoker CKD (chronic kidney disease) Hypertension Sister Mental health disorder Substance abuse Social History Household Members: Children Both parents involved: No Caregiver staying overnight: No Housing: Apartment Are you a primary critical care specialist to a significant other at home: Yes (autistic son) Do you presently have visiting nurse or other home services: No 75 years or older and lives alone: No Alcohol intake: never Patient Tobacco Use Status: Never used Tobacco e-Cigarette/Vaping Use: Never Used service: No Current occupational status: employed Current occupation: mental health counselor Cognitive needs: Yes Hearing needs: No Vision needs: Yes (wear glasses) Questionnaire PHQ-9 Over the last 2 weeks, how often have you been bothered by any of the following problems? 1. Little interest or pleasure in doing things: several days 2. Feeling down, depressed, or hopeless: several days 3. Trouble falling or staying asleep, or sleeping too much: several days 4. Feeling tired or having little energy: several days 5. Poor appetite or overeating: several days 6. Feeling bad about yourself - or that you are a failure or have let yourself or your family down: several days 7. Trouble concentrating on things, such as reading the newspaper or watching television: more than half the days 8. Moving or speaking so slowly that other people could have noticed. Or the opposite - being so fidgety or restless that you have been moving around a lot more than usual: several days 9. Thoughts that you would be better off or of hurting yourself in some way: not at all Total score: 9 Source: Developed by Drs. Scar Finley, Joseline Jno, Benito Rocha and colleagues, with an educational logan from [employer]. Thrive Questionnaire Date Thrive assessed: 07/05/24 I am a: Patient What is your living situation today?: I have a steady place to live Within the past 12 months, did the food you bought not last and you didn't have the money to get more?: Sometimes True Within the past 12 months, did you worry whether your food would run out before you got money to buy more?: Sometimes True Do you have trouble paying for medicines?: No Do you have trouble getting transportation to medical appointments?: No Do you have trouble paying your heating and electricity bill?: No Do you have trouble taking care of your child, family member or friend?: No Do you have trouble with day-to-day activities such as bathing, preparing meals, shopping, managing finances, etc.?: No Are you currently unemployed and looking for a job?: No Are you interested in more education?: No Please select the resources that you would like help with: None Currently or been in a relationship where the following occur: No concerns reported THRIVE Score: 2 JACQUELINE-7 AMB Questionnaire JACQUELINE-7 Date JACQUELINE - 7 assessed: 02/01/24 Source: Developed by Drs. Scar Finley, Joseline Jon, Benito Rocha and colleagues, with an educational logan from [employer]. Review of Systems Const Denies chills, Denies fatigue, Denies fever(s), Denies headache(s) and Denies weakness ENT Denies dizziness and Denies headache(s) Card Denies dyspnea Resp Denies cough, Denies dyspnea, Denies wheezing and Denies other (shortness of breath) Musc Denies numbness and Denies tingling Neuro Denies dizziness, Denies headache(s), Denies numbness, Denies tingling and Denies weakness Psych Denies anxiety and Denies depression Endo Denies fatigue Aller/Immun Denies wheezing Physical exam (Primary Care) Vital Signs: Last Vital Signs Temp 98.4 F 08/24/24 13:51 Pulse 81 08/24/24 13:51 Resp 14 08/24/24 13:51 BP 120/70 08/24/24 13:51 Pulse Ox 97 08/24/24 13:51 Oxygen Delivery Method Room Air 08/24/24 13:51 BMI result Body Mass Index 35.2 Tobacco/Smoking Status: Tobacco use Status Tobacco use date assessed 02/01/24 08/24/24 13:54 Patient Tobacco Use Status Never used Tobacco 08/24/24 13:54 e-Cigarette/Vaping Use Never Used 08/24/24 13:54 PHQ-9: PHQ-9 Score PHQ-9: Total score 9 08/24/24 14:00 Thrive Assessment: Date of Thrive Assessment Date Thrive assessed 07/05/24 08/24/24 13:54 Currently or been in a relationship where the following occur: No concerns reported Const General: well developed; No acute distress Nutritional Appearance: well nourished Orientation/consciousness: patient oriented x3 HENMT Head: Yes normocephalic and Yes atraumatic Eyes General: appearance normal, both eyes and all related structures Pupils: Equal, round and reactive pupils present EOM: EOMs intact bilaterally Resp Effort & Inspection: normal respiratory effort Neuro General: patient oriented x3 and gait normal Cranial nerves: Yes Equal, round and reactive pupils present Psych Affect: normal affect Coding Level of Care Code Est Pt Level 4 (50428) Diagnoses Primary hypertension I10 Hypertension type: primary hypertension Hyperlipidemia E78.5 Elevated liver enzymes R74.8 Diabetes E11.9 Renal cyst N28.1 Assessment & Plan Assessment & Plan (1) Hypertension: Code(s): I10 - Essential (primary) hypertension Category: Medical Qualifiers: Hypertension type: primary hypertension Qualified Code(s): I10 - Essential (primary) hypertension Plan: Blood?pressure?is?controlled.??Goal?is?less?than?130/80 Continue?current?medication (2) Hyperlipidemia: Code(s): E78.5 - Hyperlipidemia, unspecified Category: Medical Plan: LDL?cholesterol?is?little?above?goal?of?70?and?HDL?is?low Her?mortarman?just?increased?her?statin?medications Continue?current?medication?and?follow-up?with?Cardiology?as?recommended (3) Elevated liver enzymes: Code(s): R74.8 - Abnormal levels of other serum enzymes Category: Medical Plan: Liver?enzymes?are?now?within?normal?range Continue?weight?loss?and?good?hydration (4) Diabetes: Code(s): E11.9 - Type 2 diabetes mellitus without complications Category: Medical Plan: A1c?improved?from?7.7%?to?5.5% Continue?metformin?and?Ozempic Patient?has?not?had?a?diabetic?retinal?exam?and?I?have?referred?her?to?Dr. Olson. (5) Renal cyst: Code(s): N28.1 - Cyst of kidney, acquired Category: Medical Plan: Ultrasound?shows?small?renal?cysts?previously?characterized?on?CT?scan. Somewhat?obscured?again. Patient?would?like?repeat?ultrasound?to?evaluate?for?stability?in?6?months-ordered Orders: Orders AMB Hemoglobin A1c Today E11.9 - Type 2 diabetes mellitus without complications US renal BI 02/20/25 N28.1 - Cyst of kidney, acquired Referrals Ophthalmology Referral E11.9 - Type 2 diabetes mellitus without complications Medications: Changed From albuterol sulfate 90 mcg/actuation (Ventolin HFA) 2 inhalations inhalation Q4H PRN SOB To albuterol sulfate 90 mcg/actuation (Ventolin HFA) 2 inhalations inhalation Q4H 30 days PRN 8.5 grams 6RF SOB
[2024-08-24 13:51] VITALS: BP 120/70; PULSE 81; RESP 14; TEMP 36.9; O2SAT 97; BMI 35.2
--- OUTSIDE RECORDS SUMMARY | 2024-08-24 15:17 | XMS_ITS ---
Author Organization [facility] Address [address] [place], [place] Care Team Providers Care Beauty Specialist Name Role Phone BATSHEVA LYNCH Primary Care Provider REASON FOR VISIT research Encounters Encounter Location Date Provider Diagnosis [facility] [address] [place], [place] 08/01/2024 BATSHEVA LYNCH Plan Of Treatment No Information Progress Notes * MADDIE TERRELLDOB:1970 (54 yo F)Acc No.[id number]:08/01/2024 Patient:?MADDIE TERRELL :1970???Age:54 Y???Sex:Female Address:[address] [address] * * Date:?
--- OUTSIDE RECORDS SUMMARY | 2024-08-24 15:18 | XMS_ITS ---
Author Organization [facility] Address [address] [place] [address] Care Team Providers Care Pole Framer Machine Name Role Phone GURJIT MILLAN Primary Care Provider REASON FOR VISIT self pay pd Medications Medication SIG (Take, Route, Frequency, Duration) Notes Start Date End Date Status Albuterol Sulfate HFA 108 (90 Base) MCG/ACT INHALE 2 PUFFS INTO THE LUNGS EVERY 4 HOURS NEEDED FOR 90 DAYS for 90 Active Ambien 10 MG 1 tablet at bedtime as needed Orally Once a day for 30 days 03/25/2022 Active Mobic 15 MG 1 tablet Orally Once a day for 30 day(s) Active Amoxicillin-Pot Clavulanate 875-125 MG 1 tablet Orally every 12 hrs for 10 day(s) 09/30/2021 Active Cyclobenzaprine HCl 10 MG 1 tablet as needed Orally twice a day for 10 days Pt will need appt for further refills Active Folic Acid 400 MCG 1 tablet Orally Once a day for 90 days Active Thiamine HCl 100 MG TAKE 1 TABLET BY MOUTH EVERY DAY for 90 Active Zolpidem Tartrate 10 MG 1 tablet at bedt hilary as needed Orally Once a day for 30 days 07/08/2021 Active Multivitamin - 1 tablet Orally Once a day for 90 days Active Xanax 1 MG 1 tablet Orally tid for 30 days 01/22/2021 Active Lisinopril 40 MG Oral for 90 A ctive ALPRAZolam 1 MG 1 tablet Orally three times daily as needed for anxiety. for 30 days 03/03/2023 Active traZODone HCl 50 MG 1 tablet at bedtime as needed Orally Once a day for 90 days 12/02/2022 Active Lisinopril 40 MG 1 tablet Orally Once a day for 90 days Active Atenolol 50 MG TAKE 1 TABLET BY MOUTH EVERY DAY. for 90 Active Amoxicillin 875 MG 1 tablet Orally Twice a day for 10 days 09/28/2022 Active Encounters Encounter Location Date Provider Diagnosis Gurjit Millan [address] [place] [address] 03/03/2023 GURJIT MILLAN Anxiety F41.9 ; Chronic insomnia F51.04 ; Mild episode of recurrent major depressive disorder F33.0 and Pain, dental K08.89 Assessments Encounter Date Diagnosis (ICD Code) Assessment Notes Treatment Notes Treatment Clinical Notes Section Notes 03/03/2023 Anxiety (ICD-10 - F41.9) 03/03/2023 Chronic insomnia (ICD-10 - F51.04) 03/03/2023 Mild episode of recurrent major depressive disorder (ICD-10 - F33.0) 03/03/2023 Pain, dental (ICD-10 - K08.89) Plan Of Treatment Medication Medication Name Sig Start Date Stop Date Notes ALPRAZolam 1 MG 1 tablet Orally thre e times daily as needed for anxiety. for 30 days 03/03/2023 Progress Notes * MADDIE TERRELLDOB:1970 (54 yo F)Acc No.[id number]:03/03/2023 Patient:?MADDIE TERRELL Provider:?GURJIT MILLAN DO :1970???Age:53 Y???Sex:Female D ate:03/03/2023 Address:[id number] Subjective: * Chief Complaints: * ???1. Self pay pd. * HPI: ???Constitutional:? pt has been getting insomnia that is severe at times. pt is looking to refill , anxiety is well contorlled, she is working, she is working in [place] currently. pt has recenlty changed jobs to destress a bit. * ROS:?General/Constitutional:?Denies?Change in appetite.?Denies?Chills.?Denies?Fatigue.?Denies?Fever.?Denies?Headache.?Denies?L ightheadedness.?Denies?Sleep disturbance.?Denies?Weight gain.?Denies?Weight loss.?Allergy/Immunology:?Denies?Congestion.?Denies?Cough.?Denies?Hives.?Denies?Itching.?Denies?Rash .?Ophthalmologic:?Denies?Discharge.?Denies?Eye Pain.?ENT:?Denies?Difficulty swallowing.?Denies?Dry mouth.?Denies?Ear problems,?denies, denies.?Denies?Hearing screen.?Denies?Sore throat.?Denies?Swollen glands.?Endocrine:?Denies?Diabetes.?Denies?Difficulty sleeping.?Denies?Dizziness.?Denies?Excessive sweating.?Denies?Excessive thirst.?Denies?Frequent urination.?Denies?Hair loss.?Denies?Thyroid problems.?Denies?Weakness.?Respiratory:?Denies?Asthma,?denies, denies.?Denies?Breathing problems,?denies, denies.?Denies?Chest pain.?Denies?Cough.?Denies?Hemoptysis.?Denies?Shortness of breath,?denies, denies.?Denies?Shortness of breath at rest.?Denies?Shortness of breath with exertion.?Denies?Wheezing.?Cardiovascular:?Denies?Chest pain.?Denies?Chest pain at rest.?Denies?Chest pain with exertion.?Denies?Difficulty laying flat.?Denies?Dizziness.?Denies?Dyspnea on exertion.?Denies?Irregular heartbeat.?Denies?Palpitations.?Denies?Weakness.?Gastrointestinal:?Denies?Blood in stool.?Denies?Constipation.?Denies?Diarrhea.?Denies?Vomiting.?Hematology:?Denies?Anemia.?Denies?Bleeding problems.?Denies?Weakness.?Genitourinary:?Denies?Blood in urine.?Denies?Difficulty urinating.?Denies?Frequent urination.?Musculoskeletal:?Denies?Joint stiffness.?Denies?Sciatica.?Denies?Weakness.?Peripheral Vascular:?Denies?Cold extremities.?Denies?Decreased sensation in extremities.?Denies?Pain/cramping in legs after exertion.?Denies?Painful extremities.?Podiatric:?Denies?Difficulty walking.?Denies?Foot numbness.?Denies?Foot pain.?Skin:?Denies?Blistering of skin.?Denies?Discoloration.?Denies?Eczema.?Denies?Hair changes.?Denies?Hives.?Denies?Itching.?Neurologic:?Denies?Balance difficulty.?Denies?Coordination.?Denies?Difficulty speaking.?Denies?Dizziness.?Denies?Fainting.?Denies?Gait abnormality.?Denies?Loss of strength.?Denies?Memory loss.?Denies?Paralysis.?Denies?Seizures.?Psychiatric:?Admits?Anxiety.?Denies?Auditory/visual hallucinations.?Denies?Delusions.?Denies?Difficulty sleeping.? * Medical History:?? * Medications:?Taking Lisinopr il 40 MG Tablet Oral , Taking Xanax(ALPRAZolam) 1 MG Tablet 1 tablet Orally tid , Taking Multivitamin(Multiple Vitamin) - Tablet 1 tablet Orally Once a day , Taking Zolpidem Tartrate 10 MG Tablet 1 tablet at bedtime as needed Orally Once a day , Taking Thiamine HCl 100 MG Tablet TAKE 1 TABLET BY MOUTH EVERY DAY , Taking Folic Acid 400 MCG Tablet 1 tablet Orally Once a day , Taking Cyclobenzaprine HCl 10 MG Tablet 1 tablet as needed Orally twice a day , Notes to Pharmacist: Pt will need appt for further refills, Taking Amoxicillin-Pot Clavulanate 875-125 MG Tablet 1 tablet Orally every 12 hrs , Taking Mobic 15 MG Tablet 1 tablet Orally Once a day , Taking Ambien(Zolpidem Tartrate) 10 MG Tablet 1 tablet at bedtime as needed Orally Once a day , Taking Albuterol Sulfate HFA 108 (90 Base) MCG/ACT Aerosol Solution INHALE 2 PUFFS INTO THE LUNGS EVERY 4 HOURS NEEDED FOR 90 DAYS , Taking Amoxicillin 875 MG Tablet 1 tablet Orally Twice a day , Taking Atenolol 50 MG Tablet TAKE 1 TABLET BY MOUTH EVERY DAY. , Taking Lisinopril 40 MG Tablet 1 tablet Orally Once a day , Taking traZODone HCl 50 MG Tablet 1 tablet at bedtime as needed Orally Once a day , Taking ALPRAZolam 1 MG Tablet 1 tablet Orally three times daily as needed for anxiety. Objective: * Vitals:? * Examination: ???General Examination: ?GENERAL APPEARANCE:?normal , , alert, well hydrated, in no distress , normal , , alert, well hydrated, in no distress.?HEAD:?normocephalic , atraumatic , normocephalic , atraumatic.?EYES:?BOTH EYES , extraocular movement intact (EOMI) , pupils equal, round, reactive to light and accommodation , BOTH EYES , extraocular movement intact (EOMI) , pupils equal, round, reactive to light and accommodation.?EARS:?BOTH EARS , hearing intact to whispered voice , tympanic membrane intact, clear , BOTH EARS , hearing intact to whispered voice , tympanic membrane intact, clear.?NOSE:?nares patent , clear discharge , nares patent , clear discharge.?ORAL CAVITY:?recent dental work and little pain.?THROAT:?normal , no erythema , no exudate , uvula midline , normal , no erythema , no exudate , uvula midline.?NECK/THYROID:?normal , neck supple , neck supple, full range of motion , no carotid bruit , no jugular venous distention , no lymphadenopathy , no thyroid nodules , normal , neck supple , neck supple, full range of motion , no carotid bruit , no jugular venous distention , no lymphadenopathy , no thyroid nodules.?LYMPH NODES:?no cervical adenopathy , no palpable adenopathy , no cervical adenopathy , no palpable adenopathy.?SKIN:?good turgor , no rashes , good turgor , no rashes.?HEART:?regular rate and rhythm, S1, S2 normal, no murmurs, rubs, gallops , regular rate and rhythm, S1, S2 normal, no murmurs, rubs, gallops.?LUNGS:?clear to auscultation bilaterally , good air movement , no wheezes, rales, rhonchi , clear to auscultation bilaterally , good air movement , no wheezes, rales, rhonchi.?CHEST:?no gross rib deformity , normal shape and expansion , no gross rib deformity , normal shape and expansion.?ABDOMEN:?bowel sounds present , soft, nontender, nondistended , bowel sounds present , soft, nontender, nondistended.?BACK:?full range of motion , spine nontender to palpation , full range of motion , spine nontender to palpation.?MUSCULOSKELETAL:?full range of motion , lumbosacral spine normal , no swelling or deformity , full range of motion , lumbosacral spine normal , no swelling or deformity.?EXTREMITIES:?no edema , no clubbing, cyanosis, or edema , no edema , no clubbing, cyanosis, or edema.?PERIPHERAL PULSES:?2+ throughout , 2+ throughout.?NEUROLOGIC:?nonfocal , alert and oriented , motor strength normal upper and lower extremities , nonfocal , alert and oriented , motor strength normal upper and lower extremities.?PSYCH:??judgement and insight good , mood/affect full range?, judgement and insight good , mood/affect full range.? Assessment: * Assessment: 1.?Anxiety - F41.9 (Primary) ???2.?Chronic insomnia - F51.04???3.?Mild episode of recurrent major depressive disorder - F33.0???4.?Pain, dental - K08.89??? Plan: * Treatment: * * Electronic signature of NAGI MILLAN DO on 08/24/2024 at 03:17 PM EDT Sign off status: Pending * Provider:JUDY MILLAN DO Date:?04/2023 Generated for Printi ng/Falunag/eTransmitting on:?08/24/2024 03:17 PM EDT History and Physical Notes * Examination Category Sub-Category Detail Notes Category Not es General Examination GENERAL APPEARANCE: normal , , alert, well hydrated, in no distress , normal , , alert, well hydrated, in no distress HEAD: normocephalic , atra umatic , normocephalic , atraumatic EYES: BOTH EYES , extraocu lar movement intact (EOMI) , pupils equal, round, reactive to light and accommodation , BOTH EYES , extraocular movement intact (EOMI) , pupils equal, round, reactive to light and accommodation EARS: BOTH EARS , hearing intact to whispered voice , tympanic membrane intact, clear , BOTH EARS , hearing intact to whispered voice , tympanic membrane intact, clear NOSE: nares patent , clear discharge , nares patent , clear discharge THROAT: normal , no erythema , no exudate , uvula midline , normal , no erythema , no exudate , uvula midline NECK/THYROID: normal , neck supple , neck supple, full range of motion , no carotid bruit , no jugular venous distention , no lymphadenopathy , no thyroid nodules , normal , neck supple , neck supple, full range of motion , no carotid bruit , no jugular venous distention , no lymphadenopathy , no thyroid nodules HEART: regular rate and rhy thm, S1, S2 normal, no murmurs, rubs, gallops , regular rate and rhythm, S1, S2 normal, no murmurs, rubs, gallops CHEST: no gross rib deformi ty , normal shape and expansion , no gross rib deformity , normal shape and expansion LUNGS: clear to auscultatio n bilaterally , good air movement , no wheezes, rales, rhonchi , clear to auscultation bilaterally , good air movement , no wheezes, rales, rhonchi ABDOMEN: bowel sounds present , soft, nontender, nondistended , bowel sounds present , soft, nontender, nondistended NEUROLOGIC: nonfocal , alert and oriented , motor strength normal upper and lower extremities , nonfocal , alert and oriented , motor strength normal upper and lower extremities SKIN: good turgor , no sameer hes , good turgor , no rashes EXTREMITIES: no edema , no clubbi ng, cyanosis, or edema , no edema , no clubbing, cyanosis, or edema PERIPHERAL PULSES: 2+ throughout , 2+ t hroughout BACK: full range of motion , spine nontender to palpation , full range of motion , spine nontender to palpation MUSCULOSKELETAL: full range of motion , lumbosacral spine normal , no swelling or deformity , full range of motion , lumbosacral spine normal , no swelling or deformity LYMPH NODES: no cervical adenopat hy , no palpable adenopathy , no cervical adenopathy , no palpable adenopathy PSYCH: judgement and insigh t good , mood/affect full range , judgement and insight good , mood/affect full range ORAL CAVITY: recent dental work a nd little pain
--- OUTSIDE RECORDS SUMMARY | 2024-08-24 15:18 | XMS_ITS | Patient Health Record ---
Author Organization [facility] Address [address] [place] [address] Care Team Providers Care Allergist Name Role Phone BATSHEVA LYNCH Primary Care Provider Allergies Allergen (clinical drug ingredient) Drug/Non Drug Allergy documented on EMR Reaction Allergy Type Onset Date Status escitalopram Lexapro Unknown Drug Allergy Acti ve methylprednisolone SOLU-Medrol Unknown Drug Allergy Active Reason For Referral No Information Medications Medication SIG (Take, Route, Frequency, Duration) Notes Start Date End Date Status Mobic 15 MG 1 tablet Orally Once [...] Zolpidem Tartrate 10 MG 1 tablet at bedtime as needed Orally Once a day for 30 days 07/08/2021 Active traZODone HCl 50 MG 1 tablet at bedtime as needed Orally Once a day for 90 days 12/02/2022 Active Multivitamin - 1 tablet Orally Once a day for 90 days Active Xanax 1 MG 1 tablet Orally tid for 30 days 01/22/2021 Active Amoxicillin 875 MG 1 tablet Orally Twice a day for 10 days 09/28/2022 Active Albuterol Sulfate HFA 108 (90 Base) MCG/ACT 2 puffs as needed Inhalation every 4 hrs for 30 days Active ALPRAZolam 1 MG 1 tablet Orally three times daily as needed for anxiety. for 30 days 03/03/2023 Active Ambien 10 MG 1 tablet at bedtime as needed Orally Once a day for 30 days 03/25/2022 Active Lisinopril 40 MG TAKE 1 TABLET BY MOUTH DAILY for 30 Active Atenolol 50 MG 1 tablet Orally Once a day for 30 days Must have appt for continued 90 day refills Active Social History Tobacco Use: Social History Observation Description Date Details (start date - stop date) Never Smoker NA - NA Tobacco Use/Smoking Question Answer Notes Are you a nonsmoker Alcohol Screen (Audit-C) Question Answer Notes Did you have a drink contain ing alcohol in the past year? Yes How often did you have a dri nk containing alcohol in the past year? 4 or more times a week (4 points) How many drinks did you have on a typical day when you were drinking in the past year? 1 or 2 drinks (0 point) How often did you have 6 or more drinks on one occasion in the past year? Never (0 point) Points 4 Interpretation Positive Sexual History Question Answer Notes Had sex in the past 12 months (vaginal, oral, or anal)? No Have you ever had a Sexually transmitted disease ? No Tobacco use other than smoking: Question Answer Notes Are you an other tobacco user? No Problems Problem Type SNOMED Code ICD Code Onset Dates Problem Status W/U Status Risk Notes Problem 898354358 Asthma, unspecified asthma severity, unspecified whether complicated, unspecified whether persistent (J45.909) Active confirmed Problem 738847100 Neuropathy (G62.9) Active confirmed Problem 08758254 Anxiety (F41.9) Active confirmed Problem 322859998 Mild episode of recurrent major depressive disorder (F33.0) Active confirmed Problem 85834094 Primary hypertension (I10) Active confirmed Problem 938981246 History of alcohol abuse (F10.11) Active confirmed Problem Chronic insomnia (763945730) Chronic insomnia (F51.04) Active confirmed Problem Epilepsy characterized by intractable complex partial seizures (250926926) Partial symptomatic epilepsy with complex partial seizures, intractable, without status epilepticus (G40.219) Active confirmed Encounters Encounter Location Date Provider Diagnosis [facility] [address] [place] [address] 08/01/2024 BATSHEVA LYNCH Plan Of Treatment Pending Test Test Name Order Date Ultrasound : Breasts, bilateral 01/23/20 21 Mammogram (Bilateral), Diagnostic comput er aided 01/22/2021 FOOD ALLERGY PROFILE 07/08/2021 RESPIRATORY ALLERGY PANEL REGION IV 06/23 LIPID PANEL 01/22/2021 COMPREHENSIVE METABOLIC PANEL 01/22/2021 CBC (INCLUDES DIFF/PLT) 01/22/2021 HEMOGLOBIN A1c 01/22/2021 VITAMIN B12/FOLATE, SERUM PANEL 01/23/20 21 TSH W/REFLEX TO FT4 01/22/2021 VITAMIN D,25-OH,TOTAL,IA 01/22/2021 Medical (General) History Medical History History ICD Code Arthritis asthma hypertension Surgical History Surgery Date(Month/Year) cholecystectomy 2004 Hospitalization History Reason Date(Month/Year) bile duct rupture 2004 sepsis 2004 influenza 2019
== END 2024-08-24 14:20 | disposition home or self-care (01) ==
LOC: HO.HMCFM 13:26
PROVIDERS: PCP Family Medicine; Visit Provider Family Medicine
DX: I10 Essential (primary) hypertension (principal); E78.5 Hyperlipidemia, unspecified; R74.8 Abnormal levels of other serum enzymes; E11.9 Type 2 diabetes mellitus without complications; N28.1 Cyst of kidney, acquired

== ENCOUNTER → 2024-08-24 13:25 | Outpatient (BNVA) | payer OTHER, SELFPAY | PROVIDERS: PCP Family Medicine; Visit Provider Family Medicine ==

== ENCOUNTER 2024-10-24 07:44 | Outpatient (REF) | payer OTHER, SELFPAY ==
[2024-10-24 10:39] LABS: Cholesterol 124 mg/dL (<200); HDL Cholesterol 41 mg/dL (>40); LDL Cholesterol Calculated 65 mg/dL (<100); Triglycerides 90 mg/dL (<150)
== END 2024-10-24 07:45 | disposition home or self-care (01) ==
LOC: HO.HMGCLDS 07:44
PROVIDERS: PCP Family Medicine; Referring Provider Internal Medicine Cardiovascular Disease; Visit Provider Family Medicine
DX: E78.5 Hyperlipidemia, unspecified (principal); I25.10 Atherosclerotic heart disease of native coronary artery without angina pectoris
CPT/HCPCS: 36415; 80061

== ENCOUNTER 2024-10-25 12:35 | Outpatient (AMB) | payer OTHER, SELFPAY ==
[2024-10-25 13:01] VITALS: BP 120/72; PULSE 80; BMI 35.0
--- NOTE | 2024-10-25 13:01 | A.OFFVIS_ITS ---
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 Allergies steroids Adverse Reaction (Mild, Uncoded 10/25/24 13:03) Unknown ssri Adverse Reaction (Uncoded 10/25/24 13:03) hypertension Medication List - Last Reconciled 10/25/24 by Kristy Harman NP-C albuterol sulfate 90 mcg/actuation (Ventolin HFA) 2 inhalations inhalation Q4H PRN 30 days alprazolam (Xanax) 1 mg PO TID PRN apixaban (Eliquis) 5 mg PO BID atorvastatin 40 mg PO BEDTIME blood-glucose meter As directed budesonide 180 mcg/actuation 1 inh inhalation BID 30 days cholecalciferol (vitamin D3) 50 mcg PO DAILY 90 days diltiazem HCl CD 240 mg PO Q12H 90 days lisinopril 20 mg PO DAILY metformin ER 500 mg PO DAILY 90 days propranolol ER 80 mg PO DAILY quetiapine 25 - 50 mg PO BEDTIME semaglutide (Ozempic) 1 mg (1.472 mL) subcut QWEEK 28 days HPI HPI f/u rs by pt: Details: Jolanta is a 54-year-old female with past medical history of hypertension, obesity, anxiety, nonobstructive CAD, paroxysmal, mildly dilated ascending aorta who presents for follow-up. Today she reports that she has been having issues with her anxiety. She is following with her psychiatrist but wants to get a new counselor. She has no heart palpitations that feel like atrial fibrillation. No chest discomfort, shortness of breath, lightheadedness, presyncope, syncope. She is compliant with her medications. No bleeding issues reported. Her diabetes is well controlled and she has been following a healthy diet. [facility] Medical History Paroxysmal atrial fibrillation Mesenteric adenitis Neuropathy Depression Pre-diabetes Asthma Afib Anxiety Surgical History Previous section Family History Mother Cardiac arrest Diabetes Asthma Hypertension Cardiovascular disease Father Smoker CKD (chronic kidney disease) Hypertension Sister Mental health disorder Substance abuse Social History Household Members: Children Both parents involved: No Caregiver staying overnight: No Housing: Apartment Are you a primary personal care aid to a significant other at home: Yes (autistic son) Do you presently have visiting nurse or other home services: No 75 years or older and lives alone: No Alcohol intake: never Patient Tobacco Use Status: Never used Tobacco e-Cigarette/Vaping Use: Never Used service: No Current occupational status: employed Current occupation: mental health counselor Cognitive needs: Yes Hearing needs: No Vision needs: Yes (wear glasses) Review of Systems Const Details: anxiety about health All systems reviewed & are unremarkable except as noted in HPI and below ENT Denies dizziness Card Details: tires easily Denies chest pain, Denies chest pain at rest, Denies chest pain with activity, Denies rapid heart rate, Denies pedal edema, Denies edema, Denies leg edema, Denies lightheadedness, Denies palpitations, Denies dyspnea, Denies dyspnea on exertion and Denies orthopnea Resp Denies cough, Denies dyspnea and Denies dyspnea on exertion GI Denies hematochezia and Denies change in stool character Musc Denies abnormal gait, Denies limited range of motion, Denies muscle cramps, Denies muscle weakness, Denies numbness, Denies radiating pain into limb, Denies stiffness and Denies tingling Neuro Denies abnormal gait, Denies dizziness, Denies numbness and Denies tingling Endo Denies palpitations Physical Exam Vital Signs: Last Vital Signs Pulse 80 10/25/24 13:01 BP 120/72 10/25/24 13:01 BMI result Body Mass Index 35.0 Const General: cooperative, healthy appearing, comfortable and no acute distress Orientation/consciousness: patient oriented x3 Neck Neck: Yes normal visual inspection Resp Effort & Inspection: normal respiratory effort Auscultation: clear to auscultation bilaterally, no rales, no rhonchi and no wheezes Cardio Rate: regular rate Rhythm: regular rhythm Heart sounds: S1 normal heart sound present, S2 normal heart sound present, no gallops, no murmurs and no rubs Neuro General: patient oriented x3 Extrem General: Yes normal to inspection, No no pedal edema and No calf tenderness Psych Appearance: grossly normal Mental Status: mental status grossly normal Speech and movement: Normal speech and movement present Office Procedures EKG Details: Today, read by me, normal sinus rhythm, rate 80, Qtc 431ms [id number], Complete Assessment & Plan Assessment & Plan (1) Paroxysmal atrial fibrillation: Code(s): I48.0 - Paroxysmal atrial fibrillation Category: Medical Plan: History of paroxysmal atrial fibrillation without known reoccur recent reoccurrence. She is on propranolol and Cardizem for rate control. She is on E liquis for anticoagulation. EKG done today showing normal sinus rhythm, rate 80. No med changes made. (2) CAD (coronary artery disease): Code(s): I25.10 - Atherosclerotic heart disease of [place] coronary artery without angina pectoris Category: Medical Qualifiers: Coronary Disease-Associated Artery/Lesion type: [place] artery [place] vs. transplanted heart: [place] heart Associated angina: without angina Qualified Code(s): I25.10 - Atherosclerotic heart disease of [place] coronary artery without angina pectoris Plan: History of coronary calcium 32 in the left circumflex.-nonobstructive coronary artery disease, asymptomatic. Nuclear stress test 01/03/2024 showed normal myocardial perfusion imaging. Echocardiogram 01/02/2024 showed EF 64%, mild concentric LVH, moderate septal hypertrophy, no valve abnormalities. She expresses much anxiety regarding her health -offered reassurance in the absence of symptoms. Continue risk factor modification. Continue atorvastatin with LDL goal less than 70. She is not on aspirin as she is on Eliquis. Continue propranolol and Cardizem. Signs and symptoms of angina reviewed. Cardiology follow-up 6 months, sooner if needed. (3) Mild dilation of ascending aorta: Code(s): I77.810 - Thoracic aortic ectasia Category: Medical Plan: Last echocardiogram showed ascending aorta 3.9 cm. Blood pressure currently well controlled. (4) Hypertension: Code(s): I10 - Essential (primary) hypertension Category: Medical Qualifiers: Hypertension type: primary hypertension Qualified Code(s): I10 - Essential (primary) hypertension Plan: Pressure goal less than 130/80. Well controlled at this time. No med changes made. (5) Hyperlipidemia: Code(s): E78.5 - Hyperlipidemia, unspecified Category: Medical Plan: LDL goal less than 70. Labs done 10/25/2023 shows LDL 65. Continue atorvastatin 40 mg daily. Plan During the visit, I reviewed the patient's current regimen for atrial fibrillation, emphasizing the need for ongoing monitoring and management for optimal control. I discussed the relationship between her anxiety levels and the exacerbation of AFib symptoms, advising stress-reduction techniques. I addressed the success in managing her dyslipidemia and diabetes, highlighting the importance of compliance with her statin therapy and dietary measures. I assured her that her current medications are managing her conditions well, with no adjustments necessary based on her current status. Discussion included awareness of Eliquis-associated bleeding risks, prompting vigilance for any significant signs. We agreed on a scheduled six-month follow-up, providing sooner appointments if symptoms recurred or progressed. Patient Instructions: - Continue taking propranolol and Eliquis as prescribed - Monitor for any new or worsening symptoms, reporting promptly - Follow a heart-healthy diet and maintain regular physical activity as tolerated - Use compression socks to manage slight edema - Be vigilant for significant bleeding, bruise monitoring - Keep a relaxed, stress-free lifestyle to help manage anxiety and AFib - Follow-up with your psychiatrist or consider a new therapist if needed - Return for a follow-up with Dr. Verma in six months or sooner if symptoms worsen Patient was informed and verbally consented to the use of an ambient scribe for clinic note documentation during this visit. Visit time spent on chart review, interview, assessment, orders, documentation. Coding Level of Care Code Tele Est Pt Level 4 (65796) Complex EM visit Add On G2211 Diagnoses Paroxysmal atrial fibrillation I48.0 Coronary artery disease involving [place] coronary artery of [place] heart without angina pectoris I25.10 Coronary Disease-Associated Artery/Lesion type: [place] artery [place] vs. transplanted heart: [place] heart Associated angina: without angina Mild dilation of ascending aorta I77.810 Primary hypertension I10 Hypertension type: primary hypertension Hyperlipidemia E78.5 CPT Codes EKG - CPT: [id number], Complete ([id number])
--- OUTSIDE RECORDS SUMMARY | 2024-10-25 14:40 | XMS_ITS | Patient Health Record ---
Author Organization [facility] Address [address] [place] [address] Care Team Providers Care Delivery Crew Worker Name Role Phone BATSHEVA LYNCH Primary Care [...] Problem Status W/U Status Risk Notes Problem [id number] Asthma, unspecified asthma severity, unspecified whether complicated, unspecified whether persistent (J45.909) Active confirmed Problem 459339863 Neuropathy (G62.9) Active confirmed Problem 05800893 Anxiety (F41.9) Active confirmed Problem [id number] Mild episode of recurrent major depressive disorder (F33.0) Active confirmed Problem 99008764 Primary hypertension (I10) Active confirmed Problem 627782606 History of alcohol abuse (F10.11) Active confirmed Problem Chronic insomnia (330346933) Chronic insomnia (F51.04) Active confirmed Problem Epilepsy characterized by intractable complex partial seizures (750316739) Partial symptomatic epilepsy with complex partial seizures, intractable, without status epilepticus (G40.219) Active confirmed Encounters Encounter Location Date Provider Diagnosis [facility] [address] [place] [address] 08/01/2024 BATSHEVA LYNCH Plan Of Treatment Pending [...]
== END 2024-10-25 13:32 | disposition home or self-care (01) ==
LOC: HO.HCS 12:35
PROVIDERS: PCP Family Medicine; Visit Provider Nurse Practitioner Family
DX: I48.0 Paroxysmal atrial fibrillation (principal); I25.10 Atherosclerotic heart disease of native coronary artery without angina pectoris; I77.810 Thoracic aortic ectasia; I10 Essential (primary) hypertension; E78.5 Hyperlipidemia, unspecified
CPT/HCPCS: 93010; 99214; G2211

== ENCOUNTER → 2024-10-25 12:35 | Outpatient (BNVA) | payer OTHER, SELFPAY | PROVIDERS: PCP Family Medicine; Visit Provider Nurse Practitioner Family | DX: I48.0 Paroxysmal atrial fibrillation (principal); I25.10 Atherosclerotic heart disease of native coronary artery without angina pectoris; I10 Essential (primary) hypertension; I77.810 Thoracic aortic ectasia; E78.5 Hyperlipidemia, unspecified; F41.9 Anxiety disorder, unspecified | CPT/HCPCS: 93005 ==

== ENCOUNTER 2024-11-24 02:40 | Emergency (ER) | payer OTHER, SELFPAY ==
--- NOTE | 2024-11-24 | ECG_ITS ---
Test Reason : TACHYCARDIA Blood Pressure : */* mmHG Vent. Rate : 105 BPM Atrial Rate : 105 BPM P-R Int : 162 ms QRS Dur : 82 ms QT Int : 360 ms P-R-T Axes : 50 -11 78 degrees QTcB Int : 475 ms Sinus tachycardia Possible Left atrial enlargement Low voltage QRS Septal infarct , age undetermined Abnormal ECG When compared with ECG of 02-Dec-2023 14:16, Vent. rate has increased by 43 bpm Septal infarct is now Present Inverted T waves have replaced nonspecific T wave abnormality in Lateral leads QT has lengthened Referred By: Generic ED Physician Electronically Signed By: BIBI AVILA MD
[2024-11-24 02:42] VITALS: BP 151/91; BP 152/97; PULSE 106; PULSE 115; RESP 17; TEMP 36.6; O2SAT 98; O2SAT 99; BMI 36.5
--- NOTE | 2024-11-24 03:00 | PC.NURSE ---
denies CP and SOB. ambulated to bathroom without symptoms, remains in sinus tach low 100s
--- NOTE | 2024-11-24 03:03 | ED_ITS ---
HPI - General Adult General Chief complaint: Arrhythmia/Palpitations Stated complaint: AFIB, hx: afib , HR 126 Time Seen by Provider: 11/24/24 03:03 History of Present Illness ED Provider: Nirav MCKNIGHT narrative: The patient is a 54-year-old female with a history of paroxysmal atrial fibrillation. She is on apixaban, diltiazem, and propranolol, among other medications. She says that she has not had any problems with the episodes of atrial fibrillation for about a year. She says that she has been at work today and had not been feeling well. 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 She says that she has a general sense of not feeling well throughout the day at work. She has trouble characterizing her symptoms. She did not feel feverish. She felt fatigued. She felt run down. She worked her shift which ended at around 23:30 last night. She then went to bed but then woke up at around 02:00 with a sense of her heart racing and palpitations. She checked her heart rate with a pulse oximeter and her heart rate was 170. She called 911. Paramedics attempted to start an IV but were unsuccessful. However during the ambulance transport the patient converted to a sinus rhythm and was feeling somewhat better by the time she arrived at the emergency room. Related Data Home Medications ?Medication ?Instructions ?Recorded ?Confirmed quetiapine 25 mg tablet 25 - 50 mg PO BEDTIME 10/25/24 lisinopril 40 mg tablet 20 mg PO DAILY 05/11/2410/14 Previous Rx's ?Medication ?Instructions ?Recorded alprazolam 1 mg tablet (Xanax) 1 mg PO TID PRN anxiety #7 tabs 10/31/22 blood-glucose meter #1 ea 10/29/23 budesonide 180 mcg/actuation 1 inh inhalation BID 30 d ays #1 ea 04/06/24 breath activated powder inhaler cholecalciferol (vitamin D3) 50 50 mcg PO DAILY 90 day s #90 caps 04/06/24 mcg (2,000 unit) capsule metformin 500 mg tablet,extended 500 mg PO DAILY 90 da ys #90 tabs 05/27/24 release 24 hr diltiazem HCl 240 mg 240 mg PO Q12H 90 days #180 caps 07/10/24 capsule,extended release 24 hr propranolol 80 mg capsule,24 80 mg PO DAILY #90 caps 0 08/10/24 hr,extended release albuterol sulfate 90 mcg/actuation 2 inh inhalation Q4 H PRN SOB 30 08/24/24 aerosol inhaler (Ventolin HFA) days #8.5 grams apixaban 5 mg tablet (Eliquis) 5 mg PO BID #180 tabs 0 10/19/24 semaglutide 1 mg/dose (4 mg/3 mL) 1 mg (0.75 mL) subcu t QWEEK 10/31/24 subcutaneous pen injector days #3 mL atorvastatin 40 mg tablet 40 mg PO BEDTIME #90 tabs Allergies Allergy/AdvReac Type Severity Reaction Status Date / Time steroids AdvReac Mild Unknown Uncoded 11/24/24 02:48 ssri AdvReac hypertensio Uncoded 11/24/24 02:48 n Review of Systems 2 Review of Systems: Yes all other systems are reviewed and are negative [facility] Past Medical History Medical History Paroxysmal atrial fibrillation Mesenteric adenitis Neuropathy Depression Pre-diabetes Asthma Afib Anxiety Surgical History Previous section Family History Family History Mother Cardiac arrest Diabetes Asthma Hypertension Cardiovascular disease Father Smoker CKD (chronic kidney disease) Hypertension Sister Mental health disorder Substance abuse Social History Social History Household Members: Children Housing: Apartment Are you a primary critical care paramedic to a significant other at home: Yes (autistic son) Do you presently have visiting nurse or other home services: No Alcohol intake: never Patient Tobacco Use Status: Never used Tobacco Smoked in Last 30 Days: No e-Cigarette/Vaping Use: Never Used Use of substances other than those prescribed or required for medical reasons: No Advance Directives: No Advance Directives Information Provided: No Do you have a plan to hurt others: No Plan Patient : No service: No Current occupational status: employed Current occupation: mental health counselor Cognitive needs: Yes Hearing needs: No Vision needs: Yes (wear glasses) Physical Exam ED Vital Signs: Vital Signs - 24 hr 11/24/24 02:42 11/24/24 05:02 Temperature 97.8 F 97.7 F Pulse Rate 106 H 91 Respiratory Rate 17 20 Blood Pressure 151/91 H 114/85 Pulse Oximetry 99 97 Oxygen Delivery Method Room Air Room Air BMI result Body Mass Index 36.5 Const Other: The patient is awake and alert. She is very pleasant. She seems somewhat anxious. She does not seem in distress. Orientation/consciousness: patient oriented x3 HENMT Other: The face is symmetrical. ?Mucous membranes moist. Eyes Other: Pupils are round equal, conjunctivae are clear, extraocular movements intact Neck Neck: Yes normal visual inspection, Yes full ROM and Yes no JVD Resp Effort & Inspection: normal respiratory effort Auscultation: clear to auscultation bilaterally Cardio Other: No murmur Rate: regular rate Rhythm: regular rhythm Heart sounds: S1 normal heart sound present and S2 normal heart sound present GI Other: Abdomen is soft and nontender Skin Other: Skin is dry and unremarkable Neuro General: patient oriented x3, tone normal, moves all extremities, no focal motor deficits and CN's II-XI intact bilaterally Extrem Other: There is no calf swelling or tenderness. No asymmetry. No peripheral edema. Medications Administered Discontinued Medications Generic Name Dose Route Start Last Admin Trade Name Freq PRN Reason Stop Dose Admin Lorazepam 1 mg 11/24/24 03:19 11/24/24 03:37 Lorazepam 1 Mg Tablet PO 11/24/24 03:20 1 mg ONCE ONE Administration Medical Decision Making Medical Decision Making [facility] Narrative: The patient is a 54-year-old woman with a history of paroxysmal atrial fibrillation who was on diltiazem, apixaban, and propranolol, among other medications. She awoke early this morning at around 02:00 with a sense of palpitations in her heart racing. Pulse oximetry at home indicated a heart rate in the 170s. She called 911. With the paramedics she converted to a sinus rhythm so she was feeling better by the time she got here although her heart rate was still about 110 which she says is faster than her typical heart rates of 70. The patient had an EKG that might have showed some mild nonspecific changes but no diagnostic changes. She was in a sinus rhythm so did not need any conversion. Her heart rate was about 110. The patient was observed. She said that she has been feeling very anxious and indicated that she has p.r.n. alprazolam at home. She was given 1 mg of oral lorazepam. She was observed for a few hours. She seemed stable. Her heart rate ultimately came down to the 80s. A repeat EKG showed normal sinus rhythm at 88 beats per minute and seemed to be a fairly normal EKG. She has 2 normal troponins. My suspicion for anything other than an episode of paroxysmal atrial fibrillation is very low. I think she may be discharged to continue her regular medications. She was given a work note for the next couple of days. Lab Data 11/24/24 03:27 11/24/24 03:27 Labs: Lab Results 11/24/24 11/24/24 Range/Units 03:27 05:07 WBC 9.8 (4.8-10.8) X10*3/uL RBC 4.35 (4.20-5.50) X10*6/uL Hgb 10.2 L (12.0-16.0) g/dl Hct 32.5 L (37.0-47.0) % MCV 74.7 L (80.0-98.0) fL MCH 23.4 L (27.0-33.0) pg MCHC 31.4 (31.0-35.0) g/dl RDW 14.3 (11.0-16.0) % Plt Count 352 (160-400) X10*3/uL MPV 8.4 L (9.4-12.3) fL Immature Gran % (Auto) 0.3 (0.0-0.4) % Neut % (Auto) 63.4 (45-73) % Lymph % (Auto) 25.6 (20-40) % Stephens % (Auto) 6.0 (2-11) % Eos % (Auto) 4.1 H (0-4) % Baso % (Auto) 0.6 (0-2) % Lymph # (Auto) 2.5 (1.2-4.9) X10*3/uL Stephens # (Auto) 0.6 (0.1-1.2) X10*3/uL Eos # (Auto) 0.4 (0.0-0.4) X10*3/uL Baso # (Auto) 0.1 (0.0-0.2) X10*3/uL Abs Immat Gran (auto) 0.03 (0.00-0.03) X10*3/uL Absolute Neuts (auto) 6.2 (2.0-8.3) x10*3/uL Absolute Nucleated RBC 0.000 (0.0-0.012) X10*3/uL Nucleated RBC % (auto) 0.0 (0.0-0.2) /100WBC Sodium 142 (135-145) mmol/L Potassium 3.9 (3.3-5.1) mmol/L Chloride 105 (96-108) mmol/L Carbon Dioxide 26 (22-29) mmol/L Anion Gap 15 (12-20) BUN 13 (9-16) mg/dL Creatinine 0.72 (0.5-1.4) mg/dL Estim Creat Clear Calc 122.1 Estimated GFR > 60 Random Glucose 172 H (60-115) mg/dL Calcium 9.3 (8.4-10.2) mg/dL Total Bilirubin 0.4 (0.0-1.0) mg/dL AST 13 (5-31) U/L ALT 13 (0-31) U/L Alkaline Phosphatase 92 (39-117) U/L Troponin I High Sens < 2.7 5.3 D (<3.5-17.0) ng/L Total Protein 7.9 (6.5-8.0) g/dL Albumin 4.1 (3.5-5.0) g/dL Independent Interpretation I performed an independent interpretation of an: EKG Interpretation: EKG at 02:47 shows sinus tachycardia at 105 beats per minute. There are some nonspecific changes compared to previous EKG. A 2nd EKG was done at 05:40 which showed normal sinus rhythm at 80 beats per minute and which I felt was a fairly normal EKG. Discharge Plan Discharge Clinical Impression: Paroxysmal atrial fibrillation with rapid ventricular response Patient Disposition: Home, Self-Care Additional Instructions: You seemed to have converted back into a normal rhythm. At this point your test results all seem very reassuring and stable. I do not know what provoked this episode of atrial fibrillation you experienced tonight. Please plan on continuing your regular medications. I have written a work note for the next 2 days for you to rest. Prescriptions: No Action lisinopril 40 mg tablet 20 mg PO DAILY metformin 500 mg tablet extended release 24 hr 500 mg PO DAILY 90 Days Qty: 90 3RF diltiazem HCl 240 mg capsule,extended release 24hr 240 mg PO Q12H 90 Days Qty: 180 3RF propranolol 80 mg capsule,extended release 24 hr 80 mg PO DAILY Qty: 90 3RF Eliquis 5 mg tablet 5 mg PO BID Qty: 180 3RF semaglutide 1 mg/dose (4 mg/3 mL) pen injector 1 mg subcut QWEEK 28 Days Qty: 3 2RF Rx Instructions: for 4 weeks atorvastatin 40 mg tablet 40 mg PO BEDTIME Qty: 90 3RF alprazolam [Xanax] 1 mg tablet 1 mg PO TID PRN (Reason: anxiety) Qty: 7 0RF (DME) blood-glucose meter Kit See Rx Instructions .Route Qty: 1 0RF Rx Instructions: As directed quetiapine 25 mg tablet 25 - 50 mg PO BEDTIME cholecalciferol (vitamin D3) 50 mcg (2,000 unit) capsule 50 mcg PO DAILY 90 Days Qty: 90 3RF budesonide 180 mcg/actuation aerosol powdr breath activated 1 inh inhalation BID 30 Days Qty: 1 3RF albuterol sulfate [Ventolin HFA] 90 mcg/actuation HFA aerosol inhaler 2 inh inhalation Q4H PRN (Reason: SOB) 30 Days Qty: 8.5 6RF Referrals: Timmy Bonner MD [Primary Care Provider, Internal Medicine] Reji Verma MD [Physician, Cardiology] Stand Alone Forms: Work/School Release Print Language: Vietnamese
[2024-11-24 03:32] LABS: Hematocrit 32.5 % (37.0-47.0); Hemoglobin 10.2 g/dl (12.0-16.0); Imm Gran Abs Auto 0.03 X10*3/uL (0.00-0.03); Imm Gran Pct Auto 0.3 % (0.0-0.4); Lymphocytes Absolute Auto 2.5 X10*3/uL (1.2-4.9); MANUAL DIFF FLAG NO; Mean Corpuscular HGB Conc 31.4 g/dl (31.0-35.0); Mean Corpuscular Hemoglobin 23.4 pg (27.0-33.0); Mean Corpuscular Volume 74.7 fL (80.0-98.0); NRBC Abs Auto 0.000 X10*3/uL (0.0-0.012); NRBC Pct Auto 0.0 /100WBC (0.0-0.2); Platelet Count 352 X10*3/uL (160-400); Red Blood Count 4.35 X10*6/uL (4.20-5.50); White Blood Count 9.8 X10*3/uL (4.8-10.8)
[2024-11-24 03:50] LABS: Alanine Aminotransferase 13 U/L (0-31); Albumin Level 4.1 g/dL (3.5-5.0); Alkaline Phosphatase 92 U/L (39-117); Anion Gap 15 (12-20); Aspartate Amino Transferase 13 U/L (5-31); Blood Urea Nitrogen 13 mg/dL (9-16); Calcium 9.3 mg/dL (8.4-10.2); Carbon Dioxide 26 mmol/L (22-29); Chloride 105 mmol/L (96-108); Creatinine Clr Calc Pharmacy 122.1; Estimated Glomerular Filt Rate > 60; Potassium 3.9 mmol/L (3.3-5.1); Sodium 142 mmol/L (135-145); Total Protein 7.9 g/dL (6.5-8.0)
[2024-11-24 03:58] LABS: Troponin-I High Sensitivity < 2.7 ng/L (<3.5-17.0)
[2024-11-24 05:02] VITALS: BP 114/85; PULSE 91; RESP 20; TEMP 36.5; O2SAT 97
[2024-11-24 05:31] LABS: Troponin-I High Sensitivity 5.3 ng/L (<3.5-17.0)
--- NOTE | 2024-11-24 05:39 | ECG_ITS ---
Test Reason : TACHYCARDIA REPEAT EKG Blood Pressure : */* mmHG Vent. Rate : 88 BPM Atrial Rate : 88 BPM P-R Int : 160 ms QRS Dur : 80 ms QT Int : 366 ms P-R-T Axes : 48 -14 63 degrees QTcB Int : 442 ms Normal sinus rhythm Normal ECG When compared with ECG of 24-Nov-2024 02:47, Criteria for Septal infarct are no longer Present Referred By: Bk Gastelum Electronically Signed By: BIBI AVILA MD
[2024-11-24 06:00] VITALS: BP 114/85; PULSE 91; RESP 20; TEMP 36.5; O2SAT 97
== END 2024-11-24 06:05 | disposition home or self-care (01) ==
PROVIDERS: Emergency Provider Emergency Medicine; PCP Family Medicine
DX: I48.0 Paroxysmal atrial fibrillation (principal); Z79.01 Long term (current) use of anticoagulants; Z79.899 Other long term (current) drug therapy
CPT/HCPCS: 36415; 80053; 84484; 85025; 93005; 99283; 99285

== ENCOUNTER → 2024-11-24 02:47 | Outpatient (BNV) | payer OTHER, SELFPAY | PROVIDERS: Emergency Provider Emergency Medicine; PCP Family Medicine; Visit Provider Internal Medicine Cardiovascular Disease | DX: R00.0 Tachycardia, unspecified (principal) | CPT/HCPCS: 93010 ==

== ENCOUNTER 2024-11-27 14:44 | Outpatient (AMB) | payer OTHER, SELFPAY ==
--- NOTE | 2024-11-27 15:12 | MHC.PC.OV ---
Vital Signs 11/27/24 15:17 Height 5 ft 9 in Weight 232 lb 6 oz BMI 34.3 BP 116/78 Blood Pressure Location Rt brachial Position Sitting Respiration 20 Pulse 86 Pulse Source Pulse Oximeter Temp 98.0 F Temp Source Temporal Artery Scan Pulse Oximetry (%) 97 Oxygen Delivery Method Room Air Intake Visit Reasons: f/u diabetes, HTN Intake Note: Jolanta presents in the office today for diabetes and hypertension. Patient just has a hospital visit for Afib and she has paperwork for PFMLA paperwork. Allergies steroids Adverse Reaction (Mild, Uncoded 11/27/24 15:15) Unknown ssri Adverse Reaction (Uncoded 11/27/24 15:15) hypertension Tobacco use date assessed: 11/27/24 Dental Screening Dental Screen Date: 11/27/24 Did you have a dental visit in the last 12 months?: Yes Did you have a dental problem in the last 6 months where you did not have access to dental care?: No Was dental information given to patient?: Patient has dentist HPI f/u diabetes, HTN HPI Details 54 y/o female presents to f/u diabetes, hypertension. A1c today 11/27/24 6.1%. She is on metformin 500mg daily, semaglutide 1mg. Had went to the ED 11/24/24 for arrhythmia/palpitations. Hx of paroxysmal AFib. Was observed - her heart rate had came down to the 80s. Had a fairly normal EKG. Was converted back to a regular rhythm. They were unsure what provoked the episode of AFib. Test restuls were reassuring and stable. Blood pressure today 116/78, 86p. She is on lisinopril 20mg daily. Pt notes she is concerned about sleep apnea. HPI Comments History of Present Illness Details Documentation assistance for Timmy Bonner MD, was provided by Wilder Varner,? Systems Analyst on 11/27/2024 at 4:20 PM EST. I, Dr. Bonner, have read, observed, and verified documentation. ?? PFS Medical History Paroxysmal atrial fibrillation Mesenteric adenitis Neuropathy Depression Pre-diabetes Asthma Afib Anxiety Surgical History Previous section Family History Mother Cardiac arrest Diabetes Asthma Hypertension Cardiovascular disease Father Smoker CKD (chronic kidney disease) Hypertension Sister Mental health disorder Substance abuse Social History (Updated 11/27/24 @ 15:17 by Bryanna Cooney MA) Household Members: Children Both parents involved: No Caregiver staying overnight: No Housing: Apartment Are you a primary critical care technician to a significant other at home: Yes (autistic son) Do you presently have visiting nurse or other home services: No 75 years or older and lives alone: No Alcohol intake: never Patient Tobacco Use Status: Never used Tobacco e-Cigarette/Vaping Use: Never Used Use of substances other than those prescribed or required for medical reasons: No service: No Current occupational status: employed Current occupation: mental health counselor Cognitive needs: Yes Hearing needs: No Vision needs: Yes (wear glasses) Questionnaire Thrive Questionnaire Date Thrive assessed: 07/05/24 I am a: Patient What is your living situation today?: I have a steady place to live Within the past 12 months, did the food you bought not last and you didn't have the money to get more?: Sometimes True Within the past 12 months, did you worry whether your food would run out before you got money to buy more?: Sometimes True Do you have trouble paying for medicines?: No Do you have trouble getting transportation to medical appointments?: No Do you have trouble paying your heating and electricity bill?: No Do you have trouble taking care of your child, family member or friend?: No Do you have trouble with day-to-day activities such as bathing, preparing meals, shopping, managing finances, etc.?: No Are you currently unemployed and looking for a job?: No Are you interested in more education?: No Please select the resources that you would like help with: None Currently or been in a relationship where the following occur: No concerns reported THRIVE Score: 2 JACQUELINE-7 AMB Questionnaire JACQUELINE-7 Date JACQUELINE - 7 assessed: 02/01/24 Source: Developed by Drs. Scar Finley, Joseline Jon, Benito Rocha and colleagues, with an educational logan from [employer]. Physical exam (Primary Care) Vital Signs: Last Vital Signs Temp 98.0 F 11/27/24 15:17 Pulse 86 11/27/24 15:17 Resp 20 11/27/24 15:17 BP 116/78 11/27/24 15:17 Pulse Ox 97 11/27/24 15:17 Oxygen Delivery Method Room Air 11/27/24 15:17 BMI result Body Mass Index 34.3 Tobacco/Smoking Status: Tobacco use Status Tobacco use date assessed 11/27/24 11/27/24 15:21 Patient Tobacco Use Status Never used Tobacco 11/27/24 15:17 e-Cigarette/Vaping Use Never Used 11/27/24 15:17 Thrive Assessment: Date of Thrive Assessment Date Thrive assessed 07/05/24 11/27/24 15:13 Currently or been in a relationship where the following occur: No concerns reported Results AMB Hemoglobin A1c AMB Hemoglobin A1c 6.1 % Last Edit by Bryanna Cooney MA on 11/27/24 15:35 Results Reviewed Results Reviewed: Laboratory Last Values Hgb A1c (Clinic) 6.1 % (4.0-6.0) H 11/27/24 15:23 Coding Level of Care Code Est Pt Level 5 (94314) Diagnoses Diabetes E11.9 Primary hypertension I10 Hypertension type: primary hypertension Paroxysmal atrial fibrillation I48.0 Coronary artery disease involving [place] coronary artery of [place] heart without angina pectoris I25.10 Associated angina: without angina Coronary Disease-Associated Artery/Lesion type: [place] artery [place] vs. transplanted heart: [place] heart Sleep apnea G47.30 Assessment & Plan Assessment & Plan (1) Diabetes: Code(s): E11.9 - Type 2 diabetes mellitus without complications Category: Medical Plan: A1c 6.1% is good control. Continue her medications (2) Hypertension: Code(s): I10 - Essential (primary) hypertension Category: Medical Qualifiers: Hypertension type: primary hypertension Qualified Code(s): I10 - Essential (primary) hypertension Plan: Blood pressure is controlled. Goal is less than 130/80 Continue current medication (3) Paroxysmal atrial fibrillation: Code(s): I48.0 - Paroxysmal atrial fibrillation Category: Medical Plan: Paroxysmal atrial fibrillation and patient had recent episode of AFib. Unclear what underlying cause is however she and I do suspect sleep apnea may be cause. She did have home study which was negative. Referring her to Sleep Medicine to consider lab sleep study Filled out [facility] paperwork for intermittent leave (4) CAD (coronary artery disease): Code(s): I25.10 - Atherosclerotic heart disease of [place] coronary artery without angina pectoris Category: Medical Qualifiers: Associated angina: without angina Coronary Disease-Associated Artery/Lesion type: [place] artery [place] vs. transplanted heart: [place] heart Qualified Code(s): I25.10 - Atherosclerotic heart disease of [place] coronary artery without angina pectoris Plan: Stable Follow-up with Cardiology (5) Sleep apnea: Code(s): G47.30 - Sleep apnea, unspecified Category: Medical Plan: As above, referred to Sleep Medicine Orders: Orders AMB Hemoglobin A1c Today E11.9 - Type 2 diabetes mellitus without complications, R73.03 - Prediabetes Referrals Sleep Medicine Referral G47.30 - Sleep apnea, unspecified
[2024-11-27 15:17] VITALS: BP 116/78; PULSE 86; RESP 20; TEMP 36.7; O2SAT 97; BMI 34.3
--- OUTSIDE RECORDS SUMMARY | 2024-11-27 15:37 | XMS_ITS | Patient Health Record ---
Author Organization [facility] Address [address] [place] [address] Care Team Providers Care [employer] Worker Name Role Phone BATSHEVA LYNCH Primary [...] 15 MG 1 tablet Orally Once a day; Duration: 30 day(s) Active Amoxicillin-Pot Clavulanate 875-125 MG 1 tablet Orally every 12 hrs; Duration: 10 day(s) 09/30/2021 Active Cyclobenzaprine HCl 10 MG 1 tablet as needed Orally twice a day; Duration: 10 days Pt will need appt for further refills Active Folic Acid 400 MCG 1 tablet Orally Once a day; Duration: 90 days Active Thiamine HCl 100 MG TAKE 1 TABLET BY MOUTH EVERY DAY; Duration: 90 Active Zolpidem Tartrate 10 MG 1 tablet at bedtime as needed Orally Once a day; Duration: 30 days 07/08/2021 Active traZODone HCl 50 MG 1 tablet at bedtime as needed Orally Once a day; Duration: 90 days 12/02/2022 Active Multivitamin - 1 tablet Orally Once a day; Duration: 90 days Active Xanax 1 MG 1 tablet Orally tid; Duration: 30 days 01/22/2021 Active Amoxicillin 875 MG 1 tablet Orally Twice a day; Duration: 10 days 09/28/2022 Active Albuterol Sulfate HFA 108 (90 Base) MCG/ACT 2 puffs as needed Inhalation every 4 hrs; Duration: 30 days Active ALPRAZolam 1 MG 1 tablet Orally three times daily as needed for anxiety.; Duration: 30 days 03/03/2023 Active Ambien 10 MG 1 tablet at bedtime as needed Orally Once a day; Duration: 30 days 03/25/2022 Active Lisinopril 40 MG TAKE 1 TABLET BY MOUTH DAILY; Duration: 30 Active Atenolol 50 MG 1 tablet Orally Once a day; Duration: 30 days Must have appt for continued [...] Problem Status W/U Status Risk Notes Problem Asthma without status asthmaticus (63876255) Asthma, unspecified asthma severity, unspecified whether complicated, unspecified whether persistent (J45.909) Active confirmed Problem Neuropathy (454865128) Neuropathy (G62.9) Active confirmed Problem Anxiety (64824864) Anxiety (F41.9) Active confirmed Problem Mild recurrent major depression (98727462) Mild episode of recurrent major depressive disorder (F33.0) Active confirmed Problem Primary hypertension (62386721) Primary hypertension (I10) Active confirmed Problem Nondependent alcohol abuse in remission (638873013) History of alcohol abuse (F10.11) Active confirmed Problem Chronic insomnia (845084429) Chronic insomnia (F51.04) Active confirmed Problem Partial symptomatic epilepsy with complex partial seizures, intractable, 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
== END 2024-11-27 16:32 | disposition home or self-care (01) ==
LOC: HO.HMCFM 14:54
PROVIDERS: PCP Family Medicine; Visit Provider Family Medicine
DX: E11.9 Type 2 diabetes mellitus without complications (principal); I48.0 Paroxysmal atrial fibrillation; I10 Essential (primary) hypertension; I25.10 Atherosclerotic heart disease of native coronary artery without angina pectoris; G47.30 Sleep apnea, unspecified

== ENCOUNTER → 2024-11-27 14:44 | Outpatient (BNVA) | payer OTHER, SELFPAY | PROVIDERS: PCP Family Medicine; Visit Provider Family Medicine | DX: E11.9 Type 2 diabetes mellitus without complications (principal); I10 Essential (primary) hypertension; I48.0 Paroxysmal atrial fibrillation; I25.10 Atherosclerotic heart disease of native coronary artery without angina pectoris; G47.30 Sleep apnea, unspecified | CPT/HCPCS: 83036 ==

== ENCOUNTER 2025-02-12 09:33 | Outpatient (AMB) | payer OTHER, SELFPAY ==
--- OUTSIDE RECORDS SUMMARY | 2025-02-12 11:18 | XMS_ITS | Patient Health Record ---
Author Organization [facility] Address [address] [place] [address] Care Team Providers Care Banking Services Advisor Name Role Phone BATSHEVA LYNCH Primary Care [...] Risk Notes Problem Asthma without status asthmaticus (09251264) Asthma, unspecified asthma severity, unspecified whether complicated, unspecified whether persistent (J45.909) Active confirmed Problem Neuropathy (960231077) Neuropathy (G62.9) Active confirmed Problem Anxiety (80182782) Anxiety (F41.9) Active confirmed Problem Mild recurrent major depression (41979811) Mild episode of recurrent major depressive disorder (F33.0) Active confirmed Problem Primary hypertension (92016925) Primary hypertension (I10) Active confirmed Problem Nondependent alcohol abuse in remission (058696080) History of alcohol abuse (F10.11) Active confirmed Problem Chronic insomnia (017564455) Chronic insomnia (F51.04) Active confirmed Problem Partial symptomatic epilepsy with complex partial seizures, intractable, without status epilepticus (G40.219) Active confirmed Encounters Encounter Location Date Provider Diagnosis [facility] [address] [place] [address] 08/01/2024 BATSHEVA LYNCH Plan Of Treatment Pending Test Test Name Order Date Ultrasound : Breasts, bilateral 01/23/20 21 Mammogram (Bilateral), Diagnostic comput er aided 01/22/2021 FOOD ALLERGY PROFILE 07/08/2021 RESPIRATORY ALLERGY PANEL [place] 07/08/2021 LIPID PANEL 01/22/2021 COMPREHENSIVE METABOLIC [...]
--- NOTE | 2025-02-12 13:13 | AM.OFFVISNUR ---
Intake Visit Reasons: EKG Allergies steroids Adverse Reaction (Mild, Uncoded 02/12/25 10:30) Unknown ssri Adverse Reaction (Uncoded 02/12/25 10:30) hypertension Nursing Note Pt came into the office today after calling me and did not want to come in for an ekg, then showed up wanting one. Ekg was done and pt was In afib. Pt bp was 120/42 and hr 96. This was shown to DR Verma and pt was brought down to the ER and admitted for evaluation into the ER. Coding
== END 2025-02-12 10:32 | disposition home or self-care (01) ==
LOC: HO.HCS 09:33
PROVIDERS: PCP Family Medicine; Visit Provider Internal Medicine Cardiovascular Disease
DX: I48.91 Unspecified atrial fibrillation (principal)
CPT/HCPCS: 93010

== ENCOUNTER 2025-02-12 10:25 | Emergency (ER) | payer OTHER, SELFPAY ==
[2025-02-12 10:29] VITALS: BP 138/95; PULSE 99; RESP 18; TEMP 36.6; O2SAT 98; BMI 34.7
--- NOTE | 2025-02-12 10:29 | ED.GENADULT ---
HPI - General Adult General Chief complaint: Arrhythmia/Palpitations Stated complaint: from cardiology Time Seen by Provider: 02/12/25 10:33 History of Present Illness ED Provider: [place] HPI narrative: 55-year-old female with a history of paroxysmal AFib on anticoagulation diltiazem among other medications, adherent. She comes in for subjective rapid irregular palpitations consistent with the previous AFib. Went to cardiology and was sent here for evaluation. Prior to my evaluation of her the patient converted spontaneously to sinus rhythm approximately 11:20. We monitored the patient for 30 minutes after this. She denied chest pain she has had very chronic dyspnea on exertion that has not changed no leg swelling no hemoptysis no fever chills Related Data Home Medications ?Medication ?Instructions ?Recorded ?Confirmed quetiapine 25 mg tablet 25 - 50 mg PO BEDTIME 09/06/23 10/25/24 Previous Rx's ?Medication ?Instructions ?Recorded alprazolam 1 mg tablet (Xanax) 1 mg PO TID PRN anxiety #7 tabs 10/31/22 blood-glucose meter #1 ea 10/29/23 budesonide 180 mcg/actuation 1 inh inhalation BID 30 days #1 ea 04/06/24 breath activated powder inhaler cholecalciferol (vitamin D3) 50 50 mcg PO DAILY 90 days #90 caps 04/06/24 mcg (2,000 unit) capsule metformin 500 mg tablet,extended 500 mg PO DAILY 90 days #90 tabs 05/27/24 release 24 hr diltiazem HCl 240 mg 240 mg PO Q12H 90 days #180 caps 07/10/24 capsule,extended release 24 hr propranolol 80 mg capsule,24 80 mg PO DAILY #90 caps 08/10/24 hr,extended release apixaban 5 mg tablet (Eliquis) 5 mg PO BID #180 tabs 10/19/24 atorvastatin 40 mg tablet 40 mg PO BEDTIME #90 tabs 11/16/24 lisinopril 40 mg tablet 20 mg (1/2 x 40 mg) PO DAILY #90 12/07/24 tabs albuterol sulfate 90 mcg/actuation 2 inh inhalation Q4H PRN SOB 30 12/24/24 aerosol inhaler (Ventolin HFA) days #8.5 grams semaglutide 1 mg/dose (4 mg/3 mL) 1 mg (0.75 mL) subcut QWEEK 28 01/29/25 subcutaneous pen injector days #3 mL flecainide 50 mg tablet 50 mg PO Q12H 4 weeks #56 tabs 02/12/25 Allergies Allergy/AdvReac Type Severity Reaction Status Date / Time steroids AdvReac Mild Unknown Uncoded 02/12/25 10:30 ssri AdvReac hypertensio Uncoded 02/12/25 10:30 n PMFSH Past Medical History Medical History Paroxysmal atrial fibrillation Mesenteric adenitis Neuropathy Depression Pre-diabetes Asthma Afib Anxiety Surgical History Previous section Family History Family History Mother Cardiac arrest Diabetes Asthma Hypertension Cardiovascular disease Father Smoker CKD (chronic kidney disease) Hypertension Sister Mental health disorder Substance abuse Social History Social History (Updated 11/27/24 @ 15:17 by Bryanna Cooney MA) Household Members: Children Housing: Apartment Are you a primary health care technician to a significant other at home: Yes (autistic son) Do you presently have visiting nurse or other home services: No Alcohol intake: never Patient Tobacco Use Status: Never used Tobacco Smoked in Last 30 Days: No e-Cigarette/Vaping Use: Never Used Use of substances other than those prescribed or required for medical reasons: No Advance Directives: No Advance Directives Information Provided: No Do you have a plan to hurt others: No Plan Patient : No service: No Current occupational status: employed Current occupation: mental health counselor Cognitive needs: Yes Hearing needs: No Vision needs: Yes (wear glasses) Physical Exam ED Exam Exam: EXAM: Gen: Alert, awake, well appearing, well hydrated. Head: Atraumatic Eyes: Anicteric, Normal conjunctiva. ENT: Moist mucosa, no pallor. ? Neck: Supple. Skin: ?No observable rash or bruising on exposed or examined skin Respiratory: Breathing comfortably, No distress.Clear to auscultation bilaterally, symmetric chest expansion, No wheeze, rales, ronchi. Cardiovascular: Regular rate and rhythm. No murmurs or rub. Well perfused periphery, warm extremities. No edema. ? Abdominal: No focal tenderness. Soft, no objective distension. No palpable masses or obvious organomegaly. ?No guarding, no rebound tenderness or other peritoneal findings. : No flank tenderness. Neuro: Alert. Gross movement of all extremities intact. ? Psych: Calm. Cooperative. MSK: No grossly visible deformity. Vital signs: See flowsheet Vital Signs: Vital Signs - 24 hr 02/12/25 10:29 Temperature 98 F Pulse Rate 99 Respiratory Rate 18 Blood Pressure 138/95 H Pulse Oximetry 98 Oxygen Delivery Method Room Air BMI result Body Mass Index 34.7 Course Course Course Narrative: This is a Rapid Medical Examination (RME) performed by Ermias Barnes PA-C in triage. Full HPI, ROS, assessment and treatment plan per primary provider in the Main ED. Hx: 55 yo F here for eval of feeling generally unwell x2 hours. woke up this morning, felt my heart leaping all over the place . feels dizzy, fatigued. her watch told her she was in afib. saw dr. verma this morning who did an ekg which shows afib - sent here for management with recommendation for 150 mg flecinide x2 doses if she doesn't convert in 1 hour. no chest pain. Plan: labs Medications Administered Discontinued Medications Generic Name Dose Route Start Last Admin Trade Name Freq PRN Reason Stop Dose Admin Potassium Chloride 20 meq 02/12/25 11:14 02/12/25 12:35 Potassium Chloride Packet 20 Meq Packet PO 02/12/25 11:15 20 meq ONCE ONE Administration Procedures Procedure Narrative Procedure Narrative: EMERGENCY ULTRASOUND INTERPRETATION-Limited Echocardiography [This study was ordered, performed, and interpreted by myself. The study reveals: Impression: NORMAL LV FUNCTION, NO RV DYSFUNCTION, NO PERICARDIAL EFFUSION] [Emergent Cardiac for Indication: Views Used: PLAX, PSSA, A4, SX, IVC Pericardial Effusion/Tamponade Findings: NONE RV Dilation (> LV diam in 4ch apical): NONE Global LV Fxn: NORMAL IVC Dilation and Resp Variation: NORMAL Performed by: MD Tonia Images were stored CPT:84665] Medical Decision Making Medical Decision Making MDM Narrative: Medical Decision Makin-year-old female with paroxysmal AFib with symptomatic slightly rapid AFib on arrival here. Adherent with medications. Patient spontaneously converted to sinus while in the ED. Bedside echo without gross abnormalities. Considered but doubt PE as the patient's dyspnea on exertion is chronic. Reasonable to replete potassium with a goal of K over 4, 20 mEq to be given. Magnesium and TSH sent off. Labs resulted later reassuring. Pt converted spontaneously Preliminary Favored Differential Diagnosis: AFib with RVR, electrolyte abnormality, thyroid disorder, dehydration, cardiomyopathy among additional considered etiologies Testing Interpreted Independently: Initially ECG: AFib with RVR rate 102. No acute ischemic changes. QTC 393 no RV strain. Rhythm strip shows sinus rhythm 11 40 Radiology or Lab testing Results Reviewed: ?See below for details Consults: case d/w Dr. Verma , rec initiating flecainide Independent Historians/External Chart Reviews: ?See below for details Social Determinants of Health Impacting MDM/Planning: ?See below for details Lab Data 02/12/25 10:47 02/12/25 10:47 Labs: Lab Results 02/12/25 Range/Units 10:47 WBC 8.3 (4.8-10.8) X10*3/uL RBC 4.74 (4.20-5.50) X10*6/uL Hgb 10.6 L (12.0-16.0) g/dl Hct 34.8 L (37.0-47.0) % MCV 73.4 L (80.0-98.0) fL MCH 22.4 L (27.0-33.0) pg MCHC 30.5 L (31.0-35.0) g/dl RDW 14.9 (11.0-16.0) % Plt Count 403 H (160-400) X10*3/uL MPV 8.0 L (9.4-12.3) fL Immature Gran % (Auto) 0.4 (0.0-0.4) % Neut % (Auto) 66.9 (45-73) % Lymph % (Auto) 20.0 (20-40) % [place] % (Auto) 6.6 (2-11) % Eos % (Auto) 5.4 H (0-4) % Baso % (Auto) 0.7 (0-2) % Lymph # (Auto) 1.7 (1.2-4.9) X10*3/uL [place] # (Auto) 0.6 (0.1-1.2) X10*3/uL Eos # (Auto) 0.5 H (0.0-0.4) X10*3/uL Baso # (Auto) 0.1 (0.0-0.2) X10*3/uL Abs Immat Gran (auto) 0.03 (0.00-0.03) X10*3/uL Absolute Neuts (auto) 5.6 (2.0-8.3) x10*3/uL Absolute Nucleated RBC 0.000 (0.0-0.012) X10*3/uL Nucleated RBC % (auto) 0.0 (0.0-0.2) /100WBC Sodium 140 (135-145) mmol/L Potassium 3.9 (3.3-5.1) mmol/L Chloride 105 (96-108) mmol/L Carbon Dioxide 28 (22-29) mmol/L Anion Gap 11 L (12-20) BUN 16 (9-16) mg/dL Creatinine 0.72 (0.5-1.4) mg/dL Estim Creat Clear Calc 117.5 Estimated GFR > 60 Random Glucose 142 H (60-115) mg/dL Calcium 9.1 (8.4-10.2) mg/dL Magnesium 2.1 (1.6-2.6) mg/dL Total Bilirubin 0.3 (0.0-1.0) mg/dL AST 16 (5-31) U/L ALT 13 (0-31) U/L Alkaline Phosphatase 104 (39-117) U/L Troponin I High Sens < 2.7 (<3.5-17.0) ng/L Total Protein 8.3 H (6.5-8.0) g/dL Albumin 4.1 (3.5-5.0) g/dL TSH 1.89 (0.32-4.0) uIU/mL Discharge Plan Discharge Clinical Impression: Afib Qualifiers: Atrial fibrillation type: paroxysmal Qualified Code(s): I48.0 - Paroxysmal atrial fibrillation Patient Disposition: Home, Self-Care Instructions: A-fib (Atrial Fibrillation) (ED), Cardiac Ablation (DC) Additional Instructions: As we discussed your workup was reassuring and you converted to sinus rhythm spontaneously. Your potassium was within the normal range but we repleted it to be sure it is over 4. An echocardiogram done at the bedside with limited assessment did not see any major abnormalities. Continue on your regular medications follow up with your formation testing operator as needed Prescriptions: New flecainide 50 mg tablet 50 mg PO Q12H 28 Days Qty: 56 0RF No Action metformin 500 mg tablet extended release 24 hr 500 mg PO DAILY 90 Days Qty: 90 3RF diltiazem HCl 240 mg capsule,extended release 24hr 240 mg PO Q12H 90 Days Qty: 180 3RF propranolol 80 mg capsule,extended release 24 hr 80 mg PO DAILY Qty: 90 3RF Eliquis 5 mg tablet 5 mg PO BID Qty: 180 3RF atorvastatin 40 mg tablet 40 mg PO BEDTIME Qty: 90 3RF lisinopril 40 mg tablet 20 mg PO DAILY Qty: 90 2RF albuterol sulfate [Ventolin HFA] 90 mcg/actuation HFA aerosol inhaler 2 inh inhalation Q4H PRN (Reason: SOB) 30 Days Qty: 8.5 6RF semaglutide 1 mg/dose (4 mg/3 mL) pen injector 1 mg subcut QWEEK 28 Days Qty: 3 2RF Rx Instructions: for 4 weeks alprazolam [Xanax] 1 mg tablet 1 mg PO TID PRN (Reason: anxiety) Qty: 7 0RF (DME) blood-glucose meter Kit See Rx Instructions .Route Qty: 1 0RF Rx Instructions: As directed quetiapine 25 mg tablet 25 - 50 mg PO BEDTIME cholecalciferol (vitamin D3) 50 mcg (2,000 unit) capsule 50 mcg PO DAILY 90 Days Qty: 90 3RF budesonide 180 mcg/actuation aerosol powdr breath activated 1 inh inhalation BID 30 Days Qty: 1 3RF Interventions: ED Discharge Assessment Last Done: 02/12/25 12:25 Discharge Date/Time: 02/12/25 12:35 Print Language: Austrian
--- NOTE | 2025-02-12 10:33 | ECG_ITS ---
Test Reason : A-FIB Blood Pressure : */* mmHG Vent. Rate : 102 BPM Atrial Rate : * BPM P-R Int : * ms QRS Dur : 86 ms QT Int : 302 ms P-R-T Axes : * -13 93 degrees QTcB Int : 393 ms Atrial fibrillation with rapid ventricular response Nonspecific ST and T wave abnormality Abnormal ECG When compared with ECG of 24-Nov-2024 05:40, Atrial fibrillation has replaced Sinus rhythm Referred By: Elsa Barnes Electronically Signed By: Ronni Jackson
[2025-02-12 10:55] LABS: Hematocrit 34.8 % (37.0-47.0); Hemoglobin 10.6 g/dl (12.0-16.0); Imm Gran Abs Auto 0.03 X10*3/uL (0.00-0.03); Imm Gran Pct Auto 0.4 % (0.0-0.4); Lymphocytes Absolute Auto 1.7 X10*3/uL (1.2-4.9); Mean Corpuscular HGB Conc 30.5 g/dl (31.0-35.0); Mean Corpuscular Hemoglobin 22.4 pg (27.0-33.0); Mean Corpuscular Volume 73.4 fL (80.0-98.0); NRBC Abs Auto 0.000 X10*3/uL (0.0-0.012); NRBC Pct Auto 0.0 /100WBC (0.0-0.2); Platelet Count 403 X10*3/uL (160-400); Red Blood Count 4.74 X10*6/uL (4.20-5.50); White Blood Count 8.3 X10*3/uL (4.8-10.8)
[2025-02-12 11:12] LABS: Alanine Aminotransferase 13 U/L (0-31); Albumin Level 4.1 g/dL (3.5-5.0); Alkaline Phosphatase 104 U/L (39-117); Anion Gap 11 (12-20); Aspartate Amino Transferase 16 U/L (5-31); Blood Urea Nitrogen 16 mg/dL (9-16); Calcium 9.1 mg/dL (8.4-10.2); Carbon Dioxide 28 mmol/L (22-29); Chloride 105 mmol/L (96-108); Creatinine Clr Calc Pharmacy 117.5; Estimated Glomerular Filt Rate > 60; Potassium 3.9 mmol/L (3.3-5.1); Sodium 140 mmol/L (135-145); Total Protein 8.3 g/dL (6.5-8.0)
[2025-02-12 11:28] LABS: Troponin-I High Sensitivity < 2.7 ng/L (<3.5-17.0)
[2025-02-12 11:45] VITALS: PULSE 87
[2025-02-12 12:25] VITALS: BP 138/95; PULSE 99; RESP 18; TEMP 36.6; O2SAT 98
[2025-02-12 12:28] LABS: Thyroid Stimulating Hormone 1.89 uIU/mL (0.32-4.0)
[2025-02-12] MEDS: Potassium Chloride Packet 20 MEQ PACKET PO (12:35)
== END 2025-02-12 12:35 | disposition home or self-care (01) ==
PROVIDERS: Physician Assistant Medical; Emergency Provider Emergency Medicine; PCP Family Medicine
DX: I48.0 Paroxysmal atrial fibrillation (principal); R42 Dizziness and giddiness; Z79.01 Long term (current) use of anticoagulants; Z79.899 Other long term (current) drug therapy
CPT/HCPCS: 36415; 80053; 83735; 84443; 84484; 85025; 93005; 93308; 99284

== ENCOUNTER 2025-02-20 12:36 | Outpatient (REF) | payer OTHER, SELFPAY ==
--- NOTE | ~2025-02-20 | US_ITS ---
EXAMINATION: US KIDNEY BILATERAL HISTORY: N28.1 - Cyst of kidney, acquired TECHNIQUE: Real-time grayscale ultrasound imaging of the kidneys was performed and images were reviewed. COMPARISON: Comparison is made with the prior examination dated 05/14/1984. FINDINGS: Right kidney: The right kidney measures 13.4 x 4.4 x 6.2 cm. Renal parenchymal echotexture and thickness are normal. There are no masses. There is no hydronephrosis or renal calculi. Left Kidney: The left kidney measures 13.3 x 4.6 x 4.5 cm. Renal parenchymal echotexture and thickness are normal. Again seen is an upper pole cyst measuring 12 x 8 x 12 mm (previously 12 x 11 x 9 mm). There is no hydronephrosis or renal calculi. US/US renal BI IMPRESSION: Stable 12 x 8 x 12 mm cyst at the upper pole of the left kidney. Electronically signed by: Scar Gibson MD 02/20/2025 01:31 PM EDT
== END 2025-02-20 12:37 | disposition home or self-care (01) ==
LOC: HO.HMGCX 12:36
PROVIDERS: PCP Family Medicine; Visit Provider Family Medicine
DX: N28.1 Cyst of kidney, acquired (principal)
CPT/HCPCS: 76775

== ENCOUNTER → 2025-02-20 12:43 | Outpatient (BNV) | payer OTHER, SELFPAY | PROVIDERS: PCP Family Medicine; Visit Provider Radiology Diagnostic Radiology | DX: N28.1 Cyst of kidney, acquired (principal) | CPT/HCPCS: 76775 ==

== ENCOUNTER 2025-03-06 14:58 | Outpatient (AMB) | payer OTHER, SELFPAY ==
--- NOTE | 2025-03-06 15:15 | A.OFFPC_ITS ---
Vital Signs 03/06/25 15:22 Height 5 ft 9 in Weight 244 lb 8 oz BMI 36.1 BP 124/80 Blood Pressure Location Rt brachial Position Sitting Respiration 18 Pulse 90 Pulse Source Pulse Oximeter Temp 97.7 F Temp Source Temporal Artery Scan Pulse Oximetry (%) 97 Oxygen Delivery Method Room Air Intake Visit Reasons: Discuss Ozempic/Mounjaro /ultrasound Intake Note: Jolanta presents in the office today to discuss Ozempic/Mounjaro and kidney US Allergies flecainide Allergy (Verified 03/06/25 15:21) Panic Attack steroids Adverse Reaction (Mild, Uncoded 03/06/25 15:20) Unknown ssri Adverse Reaction (Uncoded 03/06/25 15:20) hypertension Medication List - Last Reconciled 03/06/25 by Timmy Bonner MD albuterol sulfate 90 mcg/actuation (Ventolin HFA) 2 inhalations inhalation Q4H PRN 30 days alprazolam (Xanax) 1 mg PO TID PRN apixaban (Eliquis) 5 mg PO BID atorvastatin 40 mg PO BEDTIME blood-glucose meter As directed budesonide 180 mcg/actuation 1 inh inhalation BID 30 days cholecalciferol (vitamin D3) 50 mcg PO DAILY 90 days diltiazem HCl CD 240 mg PO Q12H 90 days lisinopril 20 mg (1/2 x 40 mg) PO DAILY metformin ER 500 mg PO DAILY 90 days propranolol ER 80 mg PO DAILY quetiapine 25 - 50 mg PO BEDTIME semaglutide 1 mg (0.75 mL) subcut QWEEK 28 days Tobacco use date assessed: 03/06/25 Dental Screening Dental Screen Date: 03/06/25 Did you have a dental visit in the last 12 months?: Yes Did you have a dental problem in the last 6 months where you did not have access to dental care?: No Was dental information given to patient?: Patient has dentist HPI Discuss Ozempic/Mounjaro /ultrasound HPI Details 55 y/o female presents to f/u diabetes, weight. A1c today 6.0%. She is on metformin 500mg daily and semaglutide 1mg. BP today 124/80, 90p. She is on lisinopril 20mg, propranolol 80mg daily, diltiazem 240mg. n She is on quetiapine, alprazolam for her mood. HPI Comments History of Present Illness Details Documentation assistance for Timmy Bonner MD, was provided by Wilder Varner,? Military Equipment Specialist on 03/06/2025 at 3:40 PM EST. I, Dr. Bonner, have read, o bserved, and verified documentation. ?? [facility] Medical History Paroxysmal atrial fibrillation Mesenteric adenitis Neuropathy Depression Pre-diabetes Asthma Afib Anxiety Surgical History Previous section Family History Mother Cardiac arrest Diabetes Asthma Hypertension Cardiovascular disease Father Smoker CKD (chronic kidney disease) Hypertension Sister Mental health disorder Substance abuse Social History (Updated 03/06/25 @ 15:16 by Bryanna Cooney CMA) Household Members: Children Both parents involved: No Caregiver staying overnight: No Housing: Apartment Are you a primary hospice patient care secretary to a significant other at home: Yes (autistic son) Do you presently have visiting nurse or other home services: No 75 years or older and lives alone: No Alcohol intake: never Patient Tobacco Use Status: Never used Tobacco e-Cigarette/Vaping Use: Never Used Second Hand Smoke Exposure: No service: No Current occupational status: employed Current occupation: mental health counselor Cognitive needs: Yes Hearing needs: No Vision needs: Yes (wear glasses) Questionnaire Thrive Questionnaire Date Thrive assessed: 07/05/24 I am a: Patient What is your living situation today?: I have a steady place to live Within the past 12 months, did the food you bought not last and you didn't have the money to get more?: Sometimes True Within the past 12 months, did you worry whether your food would run out before you got money to buy more?: Sometimes True Do you have trouble paying for medicines?: No Do you have trouble getting transportation to medical appointments?: No Do you have trouble paying your heating and electricity bill?: No Do you have trouble taking care of your child, family member or friend?: No Do you have trouble with day-to-day activities such as bathing, preparing meals, shopping, managing finances, etc.?: No Are you currently unemployed and looking for a job?: No Are you interested in more education?: No Please select the resources that you would like help with: None Currently or been in a relationship where the following occur: No concerns reported THRIVE Score: 2 JACQUELINE-7 AMB Questionnaire JACQUELINE-7 Date JACQUELINE - 7 assessed: 02/01/24 Source: Developed by Drs. Scar Finley, Joseline Jon, Benito Rocha and colleagues, with an educational logan from [employer]. Review of Systems Const Denies chills, Denies fatigue, Denies fever(s), Denies headache(s) and Denies weakness ENT Denies dizziness and Denies headache(s) Card Denies dyspnea Resp Denies cough, Denies dyspnea, Denies wheezing and Denies other (shortness of breath) Musc Denies numbness and Denies tingling Neuro Denies dizziness, Denies headache(s), Denies numbness, Denies tingling and Denies weakness Psych Denies anxiety and Denies depression Endo Denies fatigue Aller/Immun Denies wheezing Physical exam (Primary Care) Vital Signs: Last Vital Signs Temp 97.7 F 03/06/25 15:22 Pulse 90 03/06/25 15:22 Resp 18 03/06/25 15:22 BP 124/80 03/06/25 15:22 Pulse Ox 97 03/06/25 15:22 Oxygen Delivery Method Room Air 03/06/25 15:22 BMI result Body Mass Index 36.1 Tobacco/Smoking Status: Tobacco use Status Tobacco use date assessed 03/06/25 03/06/25 15:18 Patient Tobacco Use Status Never used Tobacco 03/06/25 15:18 e-Cigarette/Vaping Use Never Used 03/06/25 15:18 Thrive Assessment: Date of Thrive Assessment Date Thrive assessed 07/05/24 03/06/25 15:18 Currently or been in a relationship where the following occur: No concerns reported Const General: well developed; No acute distress Nutritional Appearance: well nourished Orientation/consciousness: patient oriented x3 HENMT Head: Yes normocephalic and Yes atraumatic Eyes General: appearance normal, both eyes and all related structures Pupils: Equal, round and reactive pupils present EOM: EOMs intact bilaterally Resp Effort & Inspection: normal respiratory effort Auscultation: clear to auscultation bilaterally Cardio Rate: regular rate Rhythm: regular rhythm Heart sounds: S1 normal heart sound present, S2 normal heart sound present, no gallops, no murmurs and no rubs Neuro General: patient oriented x3 and gait normal Cranial nerves: Yes Equal, round and reactive pupils present Psych Affect: normal affect Results AMB Hemoglobin A1c AMB Hemoglobin A1c 6.0 % Last Edit by Bryanna Cooney CMA on 03/06/25 15:34 Results Reviewed Results Reviewed: Laboratory Last Values Hgb A1c (Clinic) 6.0 % (4.0-6.0) 03/06/25 15:15 Coding Level of Care Code Est Pt Level 4 (91701) Diagnoses Diabetes E11.9 Primary hypertension I10 Hypertension type: primary hypertension Coronary artery disease involving holy cross coronary artery of holy cross heart without angina pectoris I25.10 Associated angina: without angina Coronary Disease-Associated Artery/Lesion type: holy cross artery [place] vs. transplanted heart: holy cross heart Obesity E66.9 Depression with anxiety F41.8 Paroxysmal atrial fibrillation I48.0 Atrial fibrillation type: paroxysmal Assessment & Plan Assessment & Plan (1) Diabetes: Code(s): E11.9 - Type 2 diabetes mellitus without complications Category: Medical Plan: A1c 6.0%. Good control. Goal is less than 7.0% She will continue metformin as prescribed Taking semaglutide as prescribed but she would like to try tirzepatide for better weight control as the semaglutide has not been so helpful with this. Send a script for tirzepatide Follow-up in 3 months (2) Hypertension: Code(s): I10 - Essential (primary) hypertension Category: Medical Qualifiers: Hypertension type: primary hypertension Qualified Code(s): I10 - Essential (primary) hypertension Plan: Blood pressure is controlled. Goal is less than 130/80 Continue current medications (3) CAD (coronary artery disease): Code(s): I25.10 - Atherosclerotic heart disease of [place] cross coronary artery without angina pectoris Category: Medical Qualifiers: Associated angina: without angina Coronary Disease-Associated Artery/Lesion type: [place] artery [place] vs. transplanted heart: holy cross heart Qualified Code(s): I25.10 - Atherosclerotic heart disease of [place] coronary artery without angina pectoris Plan: Currently stable Continue good blood pressure control and blood sugar control Continue atorvastatin Follow-up with Cardiology as recommended (4) Obesity: Code(s): E66.9 - Obesity, unspecified Category: Medical Plan: As above switching her GLP1 to try to improve weight loss. (5) Depression with anxiety: Code(s): F41.8 - Other specified anxiety disorders Category: Medical Plan: Patient is taking quetiapine and alprazolam Well controlled Had discussion with patient today and I will assume management of these medications. She has been quite stable with them We discussed that if she needs any adjustments we may ask for a medication co nsult. Patient agrees. (6) Afib: Code(s): I48.91 - Unspecified atrial fibrillation Category: Medical Qualifiers: Atrial fibrillation type: paroxysmal Qualified Code(s): I48.0 - Paroxysmal atrial fibrillation Plan: Patient had recent visit to ED for atrial fibrillation which converted spontaneously. She was given a trial of flecainide but did not tolerate this. She remains on diltiazem, propranolol and Eliquis. She was recently referred to EP and has an upcoming appointment. Asked patient to have EP forward their note. Orders: Orders AMB Hemoglobin A1c Today E11.9 - Type 2 diabetes mellitus without complications Medications: New tirzepatide 7.5 mg (0.5 mL) subcut QWEEK 2 mL 3RF 28 days Changed From quetiapine 25 - 50 mg PO BEDTIME To quetiapine 25 - 50 mg (1 - 2 x 25 mg) PO BEDTIME 60 tabs 3RF 30 days Discontinued semaglutide for 4 weeks Discontinued Reason: Doctor's Order 1 mg (0.75 mL) subcut QWEEK 28 days 3 mL 2RF
[2025-03-06 15:22] VITALS: BP 124/80; PULSE 90; RESP 18; TEMP 36.5; O2SAT 97; BMI 36.1
--- OUTSIDE RECORDS SUMMARY | 2025-03-06 18:39 | XMS_ITS | Patient Health Record ---
Author Organization [facility] Address [address] [place] [address] Care Team Providers Care Python Programmer Name Role Phone BATSHEVA LYNCH Primary Care [...] Risk Notes Problem Asthma without status asthmaticus (66631989) Asthma, unspecified asthma severity, unspecified whether complicated, unspecified whether persistent (J45.909) Active confirmed Problem Neuropathy (124489904) Neuropathy (G62.9) Active confirmed Problem Anxiety (65507619) Anxiety (F41.9) Active confirmed Problem Mild recurrent major depression (21484506) Mild episode of recurrent major depressive disorder (F33.0) Active confirmed Problem Primary hypertension (30679832) Primary hypertension (I10) Active confirmed Problem Nondependent alcohol abuse in remission (749874203) History of alcohol abuse (F10.11) Active confirmed Problem Chronic insomnia (671582519) Chronic insomnia (F51.04) Active confirmed Problem Partial symptomatic epilepsy with complex partial seizures, intractable, 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 07/08/2021 LIPID PANEL 01/22/2021 COMPREHENSIVE METABOLIC [...]
== END 2025-03-06 15:52 | disposition home or self-care (01) ==
LOC: HO.HMCFM 14:58
PROVIDERS: PCP Family Medicine; Visit Provider Family Medicine
DX: E11.9 Type 2 diabetes mellitus without complications (principal); I48.0 Paroxysmal atrial fibrillation; E66.9 Obesity, unspecified; Z68.36 Body mass index [BMI] 36.0-36.9, adult; I10 Essential (primary) hypertension; I25.10 Atherosclerotic heart disease of native coronary artery without angina pectoris; F41.8 Other specified anxiety disorders

== ENCOUNTER → 2025-03-06 14:58 | Outpatient (BNVA) | payer OTHER, SELFPAY | PROVIDERS: PCP Family Medicine; Visit Provider Family Medicine | DX: E11.9 Type 2 diabetes mellitus without complications (principal); E66.9 Obesity, unspecified; I10 Essential (primary) hypertension; I25.10 Atherosclerotic heart disease of native coronary artery without angina pectoris; F41.8 Other specified anxiety disorders; I48.0 Paroxysmal atrial fibrillation; Z68.36 Body mass index [BMI] 36.0-36.9, adult | CPT/HCPCS: 83036 ==